=== PATIENT | male | born 1950 | race Caucasian/White ===

== ENCOUNTER 2021-02-16 12:14 | Emergency (ER) | payer OTHER ==
--- NOTE | 2021-02-16 13:23 | RAD REPORT ---
EXAM DESCRIPTION: CT - Head Brain Wo Cont - 02/16/2021 1:11 pm CLINICAL HISTORY: Facial numbness/ CARDOZO'S PALSY COMPARISON: 2016 TECHNIQUE: Computed axial tomography of the head was obtained. IV contrast was not requested. All CT scans are performed using dose optimization technique as appropriate and may include automated exposure control or mA/KV adjustment according to patient size. FINDINGS: An intracranial bleed is not seen . The ventricles are normal in caliber. No extra-axial fluid collection is noted. Mild to moderate low-density areas within periventricular, deep and subcortical white matter likely r epresent ischemic changes secondary to small vessel disease. Fluid within the sinuses/ mastoids is not seen. IMPRESSION: No acute intracranial abnormality is seen. If patient's symptoms persist MRI of the bra in would be recommended.
--- NOTE | 2021-02-16 14:49 | EDPHYS ---
Physician Documentation [facility] Name: Solomon Murdock Age: 70 yrs Sex: Male : 1950 Arrival Date: 02/16/2021 Time: 12:16 Bed 8 Private MD: Yaya Gastelum V ED Physician Dayton Alrfed HPI: 02/16 12:59 This 70 yrs old Male presents to ER via Ambulatory with complaints of S/S of pm1 Possible Stroke. 12:59 The patient's problem is reported as a facial droop, on left. Onset: The pm1 symptoms/episode began/occurred 4 day(s) ago. Duration: The episode is continuous. Context: symptoms became apparent on February 12, 2021. The symptoms are alleviated by nothing. The symptoms are aggravated by nothing. Associated signs and symptoms: Pertinent positives: headache, Pertinent negatives: weakness, speech changes. Severity of symptoms: in the emergency department the symptoms are worse. The patient has not recently seen a physician. left sided tongue numbness onset 4 days ago, difficulty closing left eye, left facial droop. Historical: - Allergies: 12:29 NKA; ph - PMHx: 12:29 COPD; Diabetes - NIDDM; Hypertension; Sleep Apnea; CVA; Asbestosis; ph - Immunization history:: Client reports receiving the 2nd dose of the Covid vaccine. - Social history:: Smoking status: Patient reports the use of cigarette tobacco products, smokes one pack cigarettes per day. ROS: 12:59 Constitutional: Negative for fever, chills, and weight loss. pm1 12:59 ENT: Negative for injury, pain, and discharge, Neck: Negative for injury, pain, and swelling, Cardiovascular: Negative for chest pain, palpitations, and edema, Respiratory: Negative for shortness of breath, cough, wheezing, and pleuritic chest pain, Abdomen/GI: Negative for abdominal pain, nausea, vomiting, diarrhea, and constipation, Back: Negative for injury and pain, MS/Extremity: Negative for injury and deformity, Skin: Negative for injury, rash, and discoloration. 12:59 Eyes: Positive for blurry vision, tearing, of the left eye, Negative for discharge, pain, double vision. 12:59 Neuro: Positive for headache, numbness left side of tongue. 12:59 All other systems are negative. pm1 Exam: 12:59 Constitutional: This is a well developed, well nourished patient who is awake, alert, pm1 and in no acute distress. Head/Face: Normocephalic, atraumatic. 12:59 Eyes: 12:59 ENT: External ear(s): are unremarkable, Ear canal(s): are normal, Mouth: Lips: normal, Oral mucosa: normal, pink and intact, moist. 12:59 Neck: Exam negative for acute changes, ROM/movement: no acute changes. 12:59 Cardiovascular: Rate: normal, Rhythm: regular, Pulses: no pulse deficits are appreciated. 12:59 Respiratory: the patient does not display signs of respiratory distress. 12:59 Neuro: Orientation: is normal, Mentation: is normal, Cerebellar function: no acute changes, Motor: moves all fours, strength is 5/5 in all extremities, Sensation: numbness, that is mild, of the left side of tongue, Gait: is steady, at a normal pace, without difficulty, Facial nerve palsy: Flattening and sparing of left forehead, widening of opening of left eyelid, blinking decreased on left eye, in ability to keep left eye shut, flattening of nasolabial fold, drooping of left corner of mouth with smiling. 13:35 Radiologist reports: No acute findiings pm1 Vital Signs: 12:24 BP 166 / 69; Pulse 68; Resp 18; Temp 97.8; Pulse Ox 99% on R/A; Weight 92.99 kg; Height ph 5 ft. 10 in. (177.80 cm); 14:48 BP 148 / 68; Pulse 66; Resp 15; Pulse Ox 99% on R/A; hb 12:24 Body Mass Index 29.41 (92.99 kg, 177.80 cm) ph MDM: 12:57 Patient medically screened. pm1 14:48 Data reviewed: vital signs. Data interpreted: Pulse oximetry: on room air is 99 %. pm1 Interpretation: normal. Counseling: I had a detailed discussion with the patient and/or guardian regarding: the historical points, exam findings, and any diagnostic results supporting the discharge/admit diagnosis, the need for outpatient follow up, a neurologist, to return to the emergency department if symptoms worsen or persist or if there are any questions or concerns that arise at home. 02/16 12:58 Order name: CT Head Brain wo Cont; Complete Time: 13:35 pm1 Administered Medications: 14:43 Drug: Decadron (dexamethasone) 10 mg Route: IM; Site: right deltoid; hb 15:20 Follow up: Response: No adverse reaction jl7 Disposition: 02/17 07:06 Co-signature as Attending Physician, Dayton Alfred MD I agree with the assessment and kdr plan of care. Disposition Summary: 02/16/21 14:48 Discharge Ordered Location: Home pm1 Problem: new pm1 Symptoms: have improved pm1 Condition: Stable pm1 Diagnosis - Melendez's palsy pm1 Followup: pm1 - With: Emergency Department - When: As needed - Reason: Worsening of condition Followup: pm1 - With: Private Physician - When: 2 - 3 days - Reason: Recheck today's complaints, Continuance of care, Re-evaluation by your physician Discharge Instructions: - Discharge Summary Sheet pm1 - Melendez Palsy, Adult pm1 Forms: - Medication Reconciliation Form pm1 - Thank You Letter pm1 - Antibiotic Education pm1 - Prescription Opioid Use pm1 Prescriptions: - prednisone 10 mg Oral tablet - take 1 tablet by ORAL route as directed for 10 days Take 6 tablets PO daily for pm1 3 days, then take 4 tablets PO daily for 3 days, then 2 tablets PO daily for 2 days, then 1 tablet PO for 2 days; 36 tablet; Refills: 0, Product Selection Permitted Signatures: Dispatcher [employer] Dayton Kendall MD MD [facility] Jenny Candelario RN RN Indra Cotton, EXCELLENCE MANAGER EXCELLENCE MANAGER pm1 Janae Valenzuela RN RN Varsha Navarrete RN jl7
--- NOTE | 2021-02-16 14:49 | ER ---
Nurse's Notes [facility] Name: Solomon Murodck Age: 70 yrs Sex: Male : 1950 Arrival Date: 02/16/2021 Time: 12:16 Bed 8 Private MD: Yaya Gastelum V Diagnosis: Melendez's palsy Presentation: 02/16 12:24 Chief complaint: Patient states: Hx of CVA, reports that "a few days ago" the L side of ph his tongue became numb, then last night he began having blurred vision in the L eye, difficulty closing L eye and L sided facial droop. Also reports headache, denies weakness to extremities, no slurred speech. Coronavirus screen: Client denies travel out of the [place] in the last 14 days. At this time, the client does not indicate any symptoms associated with coronavirus-19. Ebola Screen: No symptoms or risks identified at this time. No acute neurological deficit is noted. Pre-hospital glucose is not applicable to this patient. Initial Sepsis Screen: Does the patient meet any 2 criteria? No. Patient's initial sepsis screen is negative. Does the patient have a suspected source of infection? No. Patient's initial sepsis screen is negative. Risk Assessment: Do you want to hurt yourself or someone else? Patient reports no desire to harm self or others. Onset of symptoms was February 16, 2021. 12:24 Method Of Arrival: Ambulatory 12:24 Acuity: CHARMAINE 3 ph Stroke Activation: Symptom onset > 6 hours Physician: Stroke Attending; Name: ; Notified At: ; Arrived At: Physician: Chief Stroke Resident; Name: ; Notified At: ; Arrived At: Physician: Stroke Resident; Name: ; Notified At: ; Arrived At: Physician: ED Attending; Name: ; Notified At: ; Arrived At: Physician: ED Resident; Name: ; Notified At: ; Arrived At: Historical: - Allergies: 12:29 NKA; ph - PMHx: 12:29 COPD; Diabetes - NIDDM; Hypertension; Sleep Apnea; CVA; Asbestosis; ph - Immunization history:: Client reports receiving the 2nd dose of the Covid vaccine. - Social history:: Smoking status: Patient reports the use of cigarette tobacco products, smokes one pack cigarettes per day. Screenin:37 Abuse screen: Denies threats or abuse. Denies injuries from another. Nutritional hb screening: No deficits noted. Tuberculosis screening: No symptoms or risk factors identified. Fall Risk None identified. Assessment: 12:45 General: Appears in no apparent distress. Behavior is calm, cooperative. Pain: Denies hb pain. Neuro: Level of Consciousness is awake, alert, obeys commands, Oriented to person, place, time, situation, Facial droop on left. Cardiovascular: Patient's skin is warm and dry. Respiratory: Respiratory effort is even, unlabored, Respiratory pattern is regular, symmetrical. GI: No signs and/or symptoms were reported involving the gastrointestinal system. : No signs and/or symptoms were reported regarding the genitourinary system. EENT: No signs and/or symptoms were reported regarding the EENT system. Derm: Skin is pink, warm \\T\\ dry. Musculoskeletal: No signs and/or symptoms reported regarding the musculoskeletal system. 13:37 Reassessment: Patient appears in no apparent distress at this time. Patient and/or hb family updated on plan of care and expected duration. Pain level reassessed. Patient is alert, oriented x 3, equal unlabored respirations, skin warm/dry/pink. 14:48 Reassessment: Patient appears in no apparent distress at this time. Patient and/or hb family updated on plan of care and expected duration. Pain level reassessed. Patient is alert, oriented x 3, equal unlabored respirations, skin warm/dry/pink. Vital Signs: 12:24 BP 166 / 69; Pulse 68; Resp 18; Temp 97.8; Pulse Ox 99% on R/A; Weight 92.99 kg; Height ph 5 ft. 10 in. (177.80 cm); 14:48 BP 148 / 68; Pulse 66; Resp 15; Pulse Ox 99% on R/A; hb 12:24 Body Mass Index 29.41 (92.99 kg, 177.80 cm) ph ED Course: 12:16 Patient arrived in ED. mr 12:17 Yaya Gastelum MD is Private Physician. mr 12:29 Triage completed. ph 12:30 Arm band placed on right wrist. Patient placed in an exam room, on a stretcher. ph 12:31 Varsha Christianson RN is Primary Nurse. jl7 12:36 Indra Reinoso NP is PHCP. pm1 12:36 Dayton Alfred MD is Attending Physician. pm1 13:11 CT Head Brain wo Cont In Process Unspecified. EDMS 13:37 Patient has correct armband on for positive identification. Bed in low position. hb 15:14 No provider procedures requiring assistance completed. Patient did not have IV access jl7 during this emergency room visit. Administered Medications: 14:43 Drug: Decadron (dexamethasone) 10 mg Route: IM; Site: right deltoid; hb 15:20 Follow up: Response: No adverse reaction jl7 Outcome: 14:48 Discharge ordered by . pm1 15:14 Discharged to home ambulatory. jl7 15:14 Condition: stable 15:14 Discharge instructions given to patient, Instructed on discharge instructions, follow up and referral plans. medication usage, Demonstrated understanding of instructions, follow-up care, medications, Prescriptions given X 1. 15:15 Patient left the ED. jl7 Signatures: Dispatcher [employer] EDNY Naomy Cardona Patricia, RN Indra Bazan ph, NP MERCHANDISE MARKER pm1 Janae Valenzuela, SABRINA RN Varsha Christianson RN RN jl7
[2021-02-16] MEDS ORDERED: dexAMETHasone 10 MG/ML VIAL ONE (15:01)
[2021-02-16 15:22] VITALS: TEMP 97.8; O2SAT 99
[2021-02-16 15:23] VITALS: BP 148/68
== END 2021-02-16 15:15 | disposition home or self-care (01) ==
LOC: ER 12:14
DX: G51.0 Bell's palsy (principal); I10 Essential (primary) hypertension; F17.210 Nicotine dependence, cigarettes, uncomplicated; Z86.73 Personal history of transient ischemic attack (TIA), and cerebral infarction without residual deficits
CPT/HCPCS: 70450; J1100; 96372; 99283

== ENCOUNTER 2021-09-19 10:42 | Observation (INO) | payer OTHER ==
--- OUTSIDE RECORDS SUMMARY | 2021-09-19 10:47 | XMS REPORT | Continuity of Care Document ---
:1950 Author Organization [facility] t Address [address] [place] [address] Dr. [address] [place] [address] Care Team Providers Name Role Phone Jesse Jose Primary Care Physician SONNY GREENE Attending Clinician Unavailable Sonny Greene MD Attending Clinician Only, Test Attending Clinician Unavailable Doctor Unassigned, Name Attending Clinician Unavailable Pob, Lab Main Attending Clinician Unavailable SONNY GREENE Admitting Clinician Unavailable Sonny Greene MD Admitting Clinician Payers Payer Name Policy Type Policy Number Effective Date Expiration Date S ource [employer] CHOICE [id number] 2019 00:00:00 Problems This patient has no known problems. Allergies, Adverse Reactions, Alerts Allergy Allergy Status Severity Reaction(s) Onset Inactive Treating Comm ents Source Name Type Date Date Clinician NYLON DRUG Active ITCHING 2020-07 Univers INGREDI 2-14 ity of 00:00: [address] Nylon Propensi Active Itching 2020-07 Univers ty to 2-14 ity of adverse 00:00: [place] reaction [address] [place] [address] s [place] NO KNOWN Drug Active Univers ALLERGIE Class ity of S [facility] Social History Social Habit Start Date Stop Date Quantity Comments Source Exposure to Not sure University of SARS-CoV-2 [facility] (event) [place] Tobacco Comment 2021-07-13 2021-07-13 smoker since 58 Univ ersity of 00:00:00 00:00:00 years [facility] Sex [birth year] Universit y of 00:00:00 00:00:00 [facility] Smoking Status Start Date Stop Date Source Unknown if ever smoked Universit y of [facility] Current every day smoker 2021-07-13 00:00:00 [facility] Medications Ordered Filled Start Stop Current Ordering Indication Dosage Frequency Signature Comments Components Source Medication Medication Date Date Medication? Clinician (SIG) Name Name neomycin-po Yes PRN, Univer s lymyxin-dex 08-12 Starting ity of amethasone 14:20: on [facility] (MAXITROL) 00 08/12/21 at Med ical 3.5 0820, Branch mg/g-10,000 Until unit/g-0.1 Discontinu % ed, ophthalmic Routine, ointment Intra-op gentamicin Yes PRN, Univers injection 08-12 Starting ity of 14:20: on [facility] 00 08/12/21 at [facility] 08, Branch Until Discontinu ed, BABITA, Intra-op DUOVISC Yes PRN, Univers (DUOVISC 08-12 Starting ity of VISCO 14:20: on [facility] ELASTIC) 3 08/12/21 at [facility] ica %-4 %(0.5 0820, Branch mL) 1 % Until (0.55 mL) Discontinu intraocular ed, injection Routine, Intra-op neomycin-po 2021- No PRN, Unive rs lymyxin-dex 08-12 Starting ity of amethasone 14:20: 17:04 on [facility] s (MAXITROL) 00 :20 08/12/21 at Med ical 3.5 0820, Branch mg/g-10,000 Until Naheed unit/g-0.1 08/12/21 at % 1104, ophthalmic Routine, ointment Intra-op gentamicin 2021- No PRN, Univer s injection 08-12 Starting ity o f 14:20: 17:04 on [facility] 00 :20 08/12/21 at Medical 0820, Branch Until Naheed 08/12/21 at 1104, BABITA, Intra-op DUOVISC 2021- No PRN, Univers (DUOVISC 08-12 Starting ity of VISCO 14:20: 17:04 on [facility] ELASTIC) 3 00 :20 08/12/21 at [facility] ical %-4 %(0.5 [facility], Branch mL) 1 % Until Naheed (0.55 mL) 08/12/21 at intraocular 1104, injection Routine, Intra-op NaCl 0.9% 2021-0 Yes PRN, Univers (NS) 08-12 Starting ity of injection 14:19: on Naheed [place] 00 08/12/21 at [place] [address], [place] Until Discontinu ed, Routine, Intra-op dexamethaso 2021-0 Yes PRN, Univer s ne 08-12 Starting ity of (DECADRON 14:19: on Naheed [place] PHOSPHATE) 00 08/12/21 at [facility] ical injection 0819, [place] Until Discontinu ed, Routine, Intra-op ceFAZolin 2021-0 Yes PRN, Univers (ANCEF) 08-12 Starting ity of injection 14:19: on Naheed [place] 00 08/12/21 at [place] [address], [place] Until Discontinu ed, BABITA, Intra-op NaCl 0.9% 2021-0 2021- No PRN, Univers (NS) 08-12 Starting ity of injection 14:19: 17:04 on Naheed [place] 00 :20 08/12/21 at [place] [address], Branch Until Naheed 08/12/21 at 1104, Routine, Intra-op dexamethaso 2021-0 2021- No PRN, Unive rs ne 08-12 Starting ity of (DECADRON 14:19: 17:04 on Naheed [place] PHOSPHATE) 00 :20 08/12/21 at Med ical injection 0819, Branch Until Naheed 08/12/21 at 1104, Routine, Intra-op ceFAZolin 2021-0 2021- No PRN, Univers (ANCEF) 08-12 Starting ity of injection 14:19: 17:04 on Naheed [place] 00 :20 08/12/21 at [place] [address], Branch Until Naheed 08/12/21 at 1104, BABITA, Intra-op EPINEPHrine 2021-0 Yes PRN, Univer s (PF) 08-12 Starting ity of 1:1,000 (1 14:12: on Naheed [place] mg/mL) 00 08/12/21 at [facility] (ADRENALIN 0812, Branch (PF)) Until injection Discontinu ed, Routine, Intra-op balanced Yes PRN, Univers salt soln 08-12 Starting ity of no.2 irrig. 14:12: on [place] (BSS[place] 00 08/12/21 at [facility] ophthalmic 08, [place] solution Until Discontinu ed, Routine, Intra-op EPINEPHrine 2021- No PRN, Unive rs (PF) 08-12 Starting ity of 1:1,000 (1 14:12: 17:04 on [place] mg/mL) 00 :20 08/12/21 at [facility] (ADRENALIN 0812, [place] (PF)) Until Naheed injection 08/12/21 at 1104, Routine, Intra-op balanced 2021- No PRN, Univers salt soln 08-12 Starting ity o f no.2 irrig. 14:12: 17:04 on [place]heed [place] (BSS) 00 :20 08/12/21 at [facility] ophthalmic 08, [place] solution Until Naheed 08/12/21 at 1104, Routine, Intra-op water for Yes PRN, Univers irrigation 08-12 Starting ity o f irrigation 14:10: on Naheed [place] solution 00 08/12/[address] [facility] al 0810, [place] Until Discontinu ed, Routine, Intra-op water for 2021- No PRN, Univers irrigation 08-12 Starting ity of irrigation 14:10: 17:04 on [facility] [place] solution 00 :20 08/12/21 at Medic al 0810, Branch Until Naheed 08/12/21 at 1104, Routine, Intra-op tetracaine Yes PRN, Univers (PONTOCAINE 08-12 Starting ity of ) 0.5 % 14:05: on Naheed [place] ophthalmic 00 08/12/21 at [facility] ical drops 08, [place] Until Discontinu ed, Routine, Intra-op tetracaine 2021- No PRN, Univer s (PONTOCAINE 08-12 Starting ity of ) 0.5 % 14:05: 17:04 on Naheed [place] ophthalmic 00 :20 08/12/21 at [facility] ical drops 0805, Branch Until Naheed 08/12/21 at 1104, Routine, Intra-op eye block Yes PRN, Univers syringe 08-12 Starting ity o f mL 14:04: on Naheed [place] 08/12/21 at [facility] 0804, [facility] 2021- No PRN, Univers syringe 08-12 Starting ity of mL 14:04: 17:04 on [facility] 00 :20 08/12/21 at [facility] 0804, Branch Until Naheed 08/12/21 at 1104, Intra-op cyclopent 2021- No .5mL 0.5 mL, Univ ers 1%-tropic 08-12 Right Eye, ity of 1%-phenyl 12:45: 13:03 ONCE, 1 [place] 2.5%-ketor 00 :00 dose, On Medic al 0.5% [facility] Branch (MYDRIATIC 08/12/21 at #5) 0645, ophthalmic Routine, solution DSU Pre-op syringe 0.5 mL lactated 2021- No 1000mL at 42 Unive rs ringers IV 08-12 mL/hr, ity of infusion 12:45: 12:56 1,000 mL, [place] 1,000 mL 00 :00 IV Medical Infusion, Branch ONCE, 1 dose, On Mon08/12/21 at 0645, Routine, DSU Pre-op cyclopent 2021- No .5mL 0.5 mL, Univ ers 1%-tropic 08-12 Right Eye, ity of 1%-phenyl 12:45: 13:03 ONCE, 1 [place] 2.5%-ketor 00 :00 dose, On Medic al 0.5% [facility] Branch (MYDRIATIC 08/12/21 at #5) 0645, ophthalmic Routine, solution DSU Pre-op syringe 0.5 mL lactated 2021- No 1000mL at 42 Unive rs ringers IV 08-12 mL/hr, ity of infusion 12:45: 12:56 1,000 mL, [place] 1,000 mL 00 :00 IV Medical Infusion, Branch ONCE, 1 dose, On Mon08/12/21 at 0645, Routine, DSU Pre-op metFORMIN 2021-0 Yes 500mg Take 500 Uni vers 500 mg 1-13 mg by ity of tablet 09:04: mouth 2 [place] 20 (two) Medical [facility] daily with meals. metFORMIN 2021-0 Yes 500mg Take 500 Uni vers 500 mg 1-13 mg by ity of tablet 09:04: mouth 2 [place] 20 (two) [facility] times [place] daily with meals. metFORMIN 2021-0 Yes 500mg Take 500 Uni vers 500 mg 1-10 mg by ity of tablet 09:56: mouth 2 [place] 03 (two) [facility] daily with meals. neomycin-po 2020-07 Yes PRN, Univer s lymyxin-dex -16 Starting ity of amethasone 14:12: on [facility] (MAXITROL) 00 07/15/21 Medic al 3.5 at 0812, [place] mg/g-10,000 Until unit/g-0.1 Discontinu % ed, ophthalmic Routine, ointment Intra-op neomycin-po 2020-07- No PRN, Unive rs lymyxin-dex -07-15 Starting ity of amethasone 14:12: 16:52 [facility]51 07/15/21 Medic al 3.5 at 0812, [place] mg/g-10,000 Until Naheed unit/g-0.1 07/15/21 % at 1052, ophthalmic Routine, ointment Intra-op gentamicin 2020-07 Yes PRN, Univers injection -16 Starting ity of 14:11: on [facility] 00 07/15/21 Medical at 0811, Branch Until Discontinu ed, BABITA, Intra-op gentamicin 2020-07- No PRN, Univer s injection -07-15 Starting ity o f 14:11: 16:52 on [facility] 00 :51 07/15/21 Medical at 0811, Branch Until Naheed 07/15/21 at 1052, BABITA, Intra-op dexamethaso 2020-07 Yes PRN, Univer s ne -16 Starting ity of (DECADRON 14:10: on [facility] PHOSPHATE) 00 07/15/21 Medic al injection at 0810, Branch Until Discontinu ed, Routine, Intra-op DUOVISC 2020-07 Yes PRN, Univers (DUOVISC 2-16 Starting ity of VISCO 14:10: on Naheed [place] ELASTIC) 3 00 07/15/21 Medic al %-4 %(0.5 at 0810, Branch mL) 1 % Until (0.55 mL) Discontinu intraocular ed, injection Routine, Intra-op DUOVISC 2020-07- No PRN, Univers (DUOVISC 2-15 07- Starting ity of VISCO 14:10: 16:52 on Naheed [place] ELASTIC) 3 00 :51 07/15/21 Medic al %-4 %(0.5 at 0810, Branch mL) 1 % Until Naheed (0.55 mL) 07/15/21 intraocular at 1052, injection Routine, Intra-op dexamethaso 2020-07- No PRN, Unive rs ne 2-15 07- Starting ity of (DECADRON 14:10: 16:52 on [facility] PHOSPHATE) 00 :51 07/15/21 Medic al injection at 0810, Branch Until Naheed 07/15/21 at 1052, Routine, Intra-op ceFAZolin 2020-07 Yes PRN, Univers (ANCEF) 2- Starting ity of injection 14:09: on Naheed [place] 00 07/15/21 Medical at 0809, Branch Until Discontinu ed, BABITA, Intra-op ceFAZolin 2020-07- No PRN, Univers (ANCEF) 2-07-15 Starting ity of injection 14:09: 16:52 on Naheed [place] 00 :51 07/15/21 Medical at 0809, Branch Until Naheed 07/15/21 at 1052, BABITA, Intra-op water for 2020-07 Yes PRN, Univers irrigation 2-16 Starting ity o f irrigation 14:03: on Naheed [place] solution 00 07/15/21 Medical at 0803, Branch Until Discontinu ed, Routine, Intra-op water for 2020-07- No PRN, Univers irrigation 2-16 -16 Starting ity of irrigation 14:03: 16:52 on [place] solution 00 :51 07/15/21 Medical at 0803, Branch Until Naheed 07/15/21 at 1052, Routine, Intra-op NaCl 0.9% 2020-07 Yes PRN, Univers (NS) 2-16 Starting ity of injection 14:00: on Naheed [place] 00 07/15/21 Medical at 0800, Branch Until Discontinu ed, Routine, Intra-op tetracaine 2020-07 Yes PRN, Univers (PONTOCAINE 2-16 Starting ity of ) 0.5 % 14:00: on Naheed [place] ophthalmic 00 07/15/21 Medic al drops at 0800, Branch Until Discontinu ed, Routine, Intra-op NaCl 0.9% 2020-07- No PRN, Univers (NS) 2-16 - Starting ity of injection 14:00: 16:52 on [facility] 00 :51 07/15/21 Medical at 0800, Branch Until Naheed 07/15/21 at 1052, Routine, Intra-op tetracaine 2020-07- No PRN, Univer s (PONTOCAINE 2-16 -16 Starting ity of ) 0.5 % 14:00: 16:52 on [facility] ophthalmic 00 :51 07/15/21 Medic al drops at 0800, Branch Until Naheed 07/15/21 at 1052, Routine, Intra-op eye block 2020-07 Yes PRN, Univers syringe 11 2-16 Starting ity o f mL 13:59: on Naheed [place] 00 07/15/21 Medical at 0759, Branch Until Discontinu ed, Intra-op eye block 2020-07- No PRN, Univers syringe 11 2-16 -16 Starting ity of mL 13:59: 16:52 on [facility] 00 :51 07/15/21 Medical at 0759, Branch Until Naheed 07/15/21 at 1052, Intra-op EPINEPHrine 2020-07 Yes PRN, Univer s (PF) 2-16 Starting ity of 1:1,000 (1 13:58: on Naheed [place] mg/mL) 00 07/15/21 Medical (ADRENALIN at 0758, Bran h (PF)) Until injection Discontinu ed, Routine, Intra-op balanced 2020-07 Yes PRN, Univers salt soln 2-16 Starting ity of no.2 irrig. 13:58: on [place] (BSS) 00 07/15/21 Medical ophthalmic at 0758, Branc h solution Until Discontinu ed, Routine, Intra-op EPINEPHrine 2020-07- No PRN, Unive rs (PF) 09-15 Starting ity of 1:1,000 (1 13:58: 16:52 on [place] mg/mL) 00 :51 07/15/21 Medical (ADRENALIN at 0758, Branc h (PF)) Until Naheed injection 07/15/21 at 1052, Routine, Intra-op balanced 2020-07- No PRN, Univers salt soln 09-15 Starting ity o f no.2 irrig. 13:58: 16:52 on [place]heed [place] (BSS) 00 :51 07/15/21 Medical ophthalmic at 0758, Branc h solution Until Naheed 07/15/21 at 1052, Routine, Intra-op lactated 2020-07- No 1000mL at 42 Unive rs ringers IV 09-15 12-16 mL/hr, ity of infusion 13:15: 13:06 1,000 mL, [place] 1,000 mL 00 :00 IV Medical Infusion, Branch ONCE, 1 dose, On Naheed 07/15/21 at 0715, Routine, DSU Pre-op lactated 2020-07- No 1000mL at 42 Unive rs ringers IV 09-15 12-16 mL/hr, ity of infusion 13:15: 13:06 1,000 mL, [place] 1,000 mL 00 :00 IV Medical Infusion, Branch ONCE, 1 dose, On Naheed 07/15/21 at 0715, Routine, DSU Pre-op cyclopent 2020-07- No .5mL 0.5 mL, Univ ers 1%-tropic 09-15 Left Eye, ity of 1%-phenyl 13:00: 12:56 ONCE, 1 [place] 2.5%-ketor 00 :00 dose, On Medic al 0.5% Naheed Branch (MYDRIATIC 07/15/21 #5) at 0700, ophthalmic Routine, solution DSU Pre-op syringe 0.5 mL cyclopent 2020-07- No .5mL 0.5 mL, Univ ers 1%-tropic 2-16 12-16 Left Eye, ity of 1%-phenyl 13:00: 12:56 ONCE, 1 [place] 2.5%-ketor 00 :00 dose, On Medic al 0.5% [place] Branch (MYDRIATIC 07/15/21 #5) at 0700, ophthalmic Routine, solution DSU Pre-op syringe 0.5 mL No known 2020-07 No Univers medications 2-14 ity of 11:21: [place] 11 Medical Branch SYMBICORT 2020-07 Yes Univers 160-4.5 2-02 ity of mcg/actuati 00:00: [place] on inhaler 00 Medical Branch SYMBICORT 2020-07 Yes Univers 160-4.5 2-02 ity of mcg/actuati 00:00: [place] on inhaler 00 Medical Branch SYMBICORT 2020-07 Yes Univers 160-4.5 2-02 ity of mcg/actuati 00:00: [place] on inhaler 00 Medical Branch SYMBICORT 2020-07 Yes Univers 160-4.5 2-02 ity of mcg/actuati 00:00: [place] on inhaler 00 Medical Branch SYMBICORT 2020-07 Yes Univers 160-4.5 2-02 ity of mcg/actuati 00:00: [place] on inhaler 00 Medical Branch SYMBICORT 2020-07 Yes Univers 160-4.5 2-02 ity of mcg/actuati 00:00: [place] on inhaler 00 Medical Branch SYMBICORT 2020-07 Yes Univers 160-4.5 2-02 ity of mcg/actuati 00:00: [place] on inhaler 00 Medical Branch glimepiride 2020-07 Yes Univer s 4 mg tablet 0-24 ity of 00:00: [place] 00 Medical Branch losartan-hy 2020-07 Yes Univer s drochloroth 0-24 ity of iazide 00:00: [place] 100-12.5 mg 00 Medical per tablet Branch glimepiride 2020-07 Yes Univer s 4 mg tablet 0-24 ity of 00:00: [place] 00 Medical Branch losartan-hy 2020-07 Yes Univer s drochloroth 0-24 ity of iazide 00:00: [place] 100-12.5 mg 00 Medical per tablet Branch glimepiride 2020-07 Yes Univer s 4 mg tablet 0-24 ity of 00:00: 00 Medical Branch losartan-hy 2020-07 Yes Univer s drochloroth 0-24 ity of iazide 00:00: [place] 100-12.5 mg 00 Medical per tablet Branch glimepiride 2020-07 Yes Univer s 4 mg tablet 0-24 ity of 00:00: 00 Medical Branch losartan-hy 2020-07 Yes Univer s drochloroth 0-24 ity of iazide 00:00: [place] 100-12.5 mg 00 Medical per tablet Branch glimepiride 2020-07 Yes Univer s 4 mg tablet 0-24 ity of 00:00: [place] 00 Medical Branch losartan-hy 2020-07 Yes Univer s drochloroth 0-24 ity of iazide 00:00: [place] 100-12.5 mg 00 Medical per tablet Branch glimepiride 2020-07 Yes Univer s 4 mg tablet 0-24 ity of 00:00: [place] 00 Medical Branch losartan-hy 2020-07 Yes Univer s drochloroth 0-24 ity of iazide 00:00: [place] 100-12.5 mg 00 Medical per tablet Branch glimepiride 2020-07 Yes Univer s 4 mg tablet 0-24 ity of 00:00: [place] 00 Medical Branch losartan-hy 2020-07 Yes Univer s drochloroth 0-24 ity of iazide 00:00: [place] 100-12.5 mg 00 Medical per tablet Branch carvediloL 2020-07 Yes Univers 12.5 mg 0-12 ity of tablet 00:00: Medical Branch carvediloL 2020-07 Yes Univers 12.5 mg 0-12 ity of tablet 00:00: Medical Branch carvediloL 2020-07 Yes Univers 12.5 mg 0-12 ity of tablet 00:00: Medical Branch carvediloL 2020-07 Yes Univers 12.5 mg 0-12 ity of tablet 00:00: Medical Branch carvediloL 2020-07 Yes Univers 12.5 mg 0-12 ity of tablet 00:00: Medical Branch carvediloL 2020-07 Yes Univers 12.5 mg 0-12 ity of tablet 00:00: Medical Branch carvediloL 2020-1 Yes Univers 12.5 mg 0-12 ity of tablet 00:00: [place] [facility] Branch Immunizations Ordered Filled Immunization Date Status Comments [facility] e Immunization Name Name SARS-COV-2 COVID-19 2021-05-25 Completed Unive rsity of MODERNA VACCINE 00:00:00 [facility] ical Branch SARS-COV-2 COVID-19 2021-05-25 Completed Unive rsity of MODERNA VACCINE 00:00:00 [facility] ical Branch SARS-COV-2 COVID-19 2021-05-25 Completed Unive rsity of MODERNA VACCINE 00:00:00 [facility] SARS-COV-2 COVID-19 2021-05-25 Completed Unive rsity of MODERNA VACCINE 00:00:00 [facility] Branch SARS-COV-2 COVID-19 2021-05-25 Completed Unive rsity of MODERNA VACCINE 00:00:00 [facility] Branch SARS-COV-2 COVID-19 2021-05-25 Completed Unive rsity of MODERNA VACCINE 00:00:00 [facility] Branch SARS-COV-2 COVID-19 2021-05-25 Completed Unive rsity of MODERNA VACCINE 00:00:00 [facility] Branch SARS-COV-2 COVID-19 2020-11-26 Completed Unive rsity of MODERNA VACCINE 00:00:00 [facility] Branch SARS-COV-2 COVID-19 2020-11-26 Completed Unive rsity of MODERNA VACCINE 00:00:00 [facility] ical Branch SARS-COV-2 COVID-19 2020-11-26 Completed Unive rsity of MODERNA VACCINE 00:00:00 [facility] ical Branch SARS-COV-2 COVID-19 2020-11-26 Completed Unive rsity of MODERNA VACCINE 00:00:00 [facility] Branch SARS-COV-2 COVID-19 2020-11-26 Completed Unive rsity of MODERNA VACCINE 00:00:00 [facility] Branch SARS-COV-2 COVID-19 2020-11-26 Completed Unive rsity of MODERNA VACCINE 00:00:00 [facility] Branch SARS-COV-2 COVID-19 2020-11-26 Completed Unive rsity of MODERNA VACCINE 00:00:00 [facility] Branch SARS-COV-2 COVID-19 2020-11-26 Completed Unive rsity of MODERNA VACCINE 00:00:00 [facility] Branch SARS-COV-2 COVID-19 2020-10-22 Completed Unive rsity of MODERNA VACCINE 00:00:00 [facility] Branch SARS-COV-2 COVID-19 2020-10-22 Completed Unive rsity of MODERNA VACCINE 00:00:00 [facility] Branch SARS-COV-2 COVID-19 2020-10-22 Completed Unive rsity of MODERNA VACCINE 00:00:00 [facility] Branch SARS-COV-2 COVID-19 2020-10-22 Completed Unive rsity of MODERNA VACCINE 00:00:00 [facility] Branch SARS-COV-2 COVID-19 2020-10-22 Completed Unive rsity of MODERNA VACCINE 00:00:00 [facility] Branch SARS-COV-2 COVID-19 2020-10-22 Completed Unive rsity of MODERNA VACCINE 00:00:00 [facility] Branch SARS-COV-2 COVID-19 2020-10-22 Completed Unive rsity of MODERNA VACCINE 00:00:00 [facility] Branch SARS-COV-2 COVID-19 2020-10-22 Completed Unive rsity of MODERNA VACCINE 00:00:00 [facility] Vital Signs Vital Name Observation Time Observation Value Comments Source Systolic blood 2021-08-12 14:47:00 149 mm[Hg] Univer sity of pressure [facility] Diastolic blood 2021-08-12 14:47:00 69 mm[Hg] Unive rsity of pressure [facility] Heart rate 2021-08-12 14:47:00 55 /min Universi ty [facility] Respiratory rate 2021-08-12 14:47:00 11 /min [facility] ersity [facility] Oxygen saturation in 2021-08-12 14:47:00 100 /min [facility] Arterial blood by [facility] Pulse oximetry Branch Body temperature 2021-08-12 14:29:00 36.44 Meli [facility] ersity of [place] [facility] Body height 2021-08-03 19:32:00 177.8 cm Universi ty of [place] [facility] Body weight 2021-08-03 19:32:00 90.7 kg Universi ty of [place] [facility] BMI 2021-08-03 19:32:00 28.69 kg/m2 Universi ty of [place] [facility] Systolic blood 2021-08-12 12:41:00 151 mm[Hg] Univer sity of pressure [place] [facility] Diastolic blood 2021-08-12 12:41:00 62 mm[Hg] Unive rsity of pressure [place] [facility] Heart rate 2021-08-12 12:41:00 65 /min Universi ty of [place] [facility] Respiratory rate 2021-08-12 12:41:00 18 /min Univ ersity of [place] [facility] Oxygen saturation in 2021-08-12 12:41:00 99 /min University of Arterial blood by [place] [employer] [facility] Pulse oximetry Branch Body height 2021-08-03 19:32:00 177.8 cm Universi ty of [place] [facility] Body weight 2021-08-03 19:32:00 90.7 kg Universi ty [facility] [place] [facility] BMI 2021-08-03 19:32:00 28.69 kg/m2 Universi ty [facility] [place] [facility] Systolic blood 2021-07-15 14:41:00 144 mm[Hg] Univer sity of pressure [place] [facility] Diastolic blood 2021-07-15 14:41:00 71 mm[Hg] Unive rsity of pressure [place] [facility] Heart rate 2021-07-15 14:41:00 55 /min [facility]i ty [facility] [place] [facility] Respiratory rate 2021-07-15 14:40:00 19 /min Univ ersity of [place] [facility] Oxygen saturation in 2021-07-15 14:40:00 99 /min University of Arterial blood by [place] [employer] [facility] Pulse oximetry Branch Body temperature 2021-07-15 14:26:00 36.39 Meli Univ ersity of [place] [facility] Body height 2021-07-13 17:00:00 177.8 cm Universi ty [facility] [place] [facility] Body weight 2021-07-13 17:00:00 90.719 kg Universi ty [facility] [place] [facility] BMI 2021-07-13 17:00:00 28.70 kg/m2 [facility] [place] [facility] Systolic blood 2021-07-15 14:36:00 155 mm[Hg] Univer sity of pressure [facility] Diastolic blood 2021-07-15 14:36:00 77 mm[facility]Hg] [facility] Heart rate 2021-07-15 14:36:00 56 /min [facility] Oxygen saturation in 2021-07-15 14:36:00 98 /min [facility] Arterial blood by [facility] Pulse oximetry [place] Respiratory rate 2021-07-15 14:34:00 43 /min [facility] Body temperature 2021-07-15 14:26:00 36.39 Meli [facility] Body height 2021-07-13 17:00:00 177.8 cm [facility] Body weight 2021-07-13 17:00:00 90.719 kg [facility] BMI 2021-07-13 17:00:00 28.70 kg/m2 [facility] Procedures Procedure Date / Time Performing Source Performed Clinician PHACOEMULSIFICATION OF 2021-08-12 Arcenio [facility] CATARACT WITH INTRAOCULAR 13:54:00 Sonny Rai l Anat LENS IMPLANT POCT GLUCOSE(AGE >30DAYS) 2021-08-12 Omar Gary [facility] 12:55:00 [facility] POCT GLUCOSE(AGE >30DAYS) 2021-08-12 Omar Gary [facility] 12:55:00 [facility] POCT GLUCOSE (AUTOMATED) 2021-08-12 Arcenio [facility] 12:50:00 [facility] POCT GLUCOSE (AUTOMATED) 2021[facility]08[facility]12 [facility] 12:50[facility]00 [facility] ASSIGNMENT OF BENEFITS 2021-08-05 Doctor Unassigned, [facility] 19:15:30 [facility] Branch PHACOEMULSIFICATION OF 2021-07-15 Arcenio [facility] CATARACT WITH INTRAOCULAR 13:48:00 Sonny Medica l Anat LENS IMPLANT POCT GLUCOSE (AUTOMATED) 2021-07-15 Arcen[facility] 13:04:00 [facility] POCT GLUCOSE (AUTOMATED) 2021-07-15 Alycia Greene [facility] 13:04:00 [facility] PATIENT QUESTIONNAIRE 2021-07-15 Doctor Dontrell [facility] 06:01:00 [facility] NO SHOW OR MISSED APPOINTMENT 2021-07-09 Doctor Dontrell [facility] POLICY ACKNOWLEDGEMENT 21:25:51 [facility] mario NO SHOW OR MISSED APPOINTMENT 2021-07-09 Doctor Unakristie [facility] POLICY ACKNOWLEDGEMENT 21:25:51 [facility] aliyahch [facility] PATIENT FINANCIAL POLICY 2021-07-09 Doctor Unakristie [facility] 21:25:18 [facility] PATIENT FINANCIAL POLICY 2021-07-09 Doctor Dontrell [facility] 21:25:18 [facility] NOTICE OF BILLING PRACTICES 2021-07-09 Doctor Yeceniassmaddie [facility] FOR MEDICARE PATIENTS 21:24:55 [facility] NOTICE OF BILLING PRACTICES 2021-07-09 Doctor Dontrell [facility] FOR MEDICARE PATIENTS 21:24:55 [facility] NOTICE OF PRIVACY PRACTICES 2021-07-09 Doctor Unakristie [facility] 21:24:37 [facility] NOTICE OF PRIVACY PRACTICES 2021-07-09 Doctor Dontrell [facility] 21:24:37 [facility] CONSENT/REFUSAL FOR DIAGNOSIS 2021-07-09 Doctor Dontrell [facility] AND TREATMENT 21:24:19 [facility] CONSENT/REFUSAL FOR DIAGNOSIS 2021-07-09 Doctor Dontrell [facility] AND TREATMENT 21:24:19 [facility] ASSIGNMENT OF BENEFITS 2021-07-09 Doctor Dontrell [facility] 21:24:01 [facility] ASSIGNMENT OF BENEFITS 2021-07-09 Doctor Dontrell [facility] 21:24:01 [facility] VACCINATIONS - CONSENTS, 2021-05-23 Doctor Dontrell [facility] ELIGIBILITY, HISTORY 05:01:00 [facility] Encounters Start End Encounter Admission Attending Care Care Encounter Source Date/Time Date/Time Type Type Clinicians Facility Department ID 2021-08-12 2021-08-12 Outpatient Donald GREENE [facility] OPH [id number] [facility] 06:39:00 08:59:00 ALYCIA itmariangel [facility] 2021-08-12 2021-08-12 Hospital [facility] [id number] Univers 06:39:00 08:59:00 Encounter Alycia YEPEZJAQUELIN 350.1.13.10 [place] [id number] [facility] 071 Branch 2021-08-12 2021-08-12 Surgery [facility] [id number] Univers 07:30:00 08:05:00 Alycia ADRIEN 350.1.13.10 [place] [id number] [facility] 020 Branch 2021-08-10 2021-08-10 Laboratory Only, Adc Test [facility] 1.2.840. [id number] Univers 10:30:00 10:45:00 Only Alycia Greene 350.1.1 3.10 [place] [id number] [facility] [address] 2021-08-10 2021-08-10 Outpatient R [facility] [id number] Univers 10:30:00 10:30:00 [id number] ity of [facility] 2021-08-10 2021-08-10 Outpatient R [facility] [id number] Univers 10:30:00 10:30:00 ALYCIA carter [facility] 2021-08-05 2021-08-05 Orders Doctor MANUEL [id number] Univers 00:00:00 00:00:00 Only Unassigned, ORIN 350.1.13.10 [place]y of [place] [facility] 4.2.7.2.686 Paul as [phone] [facility] 009 Branch 2021-07-15 2021-07-15 Outpatient R [facility] OPH [id number] Univers 06:43:00 08:41:00 ALYCIA carter [facility] 2021-07-15 2021-07-15 [facility] [id number] Univers 06:43:00 08:41:00 Encounter Alycia JURADO 350.1.13.10 [place] [id number] [facility] 071 Branch 2021-07-15 2021-07-[address] [facility] [id number] Univers 08:00:00 08:36:00 Alycia JURADO 350.1.13.10 [place] [id number] [facility] 020 Branch 2021-07-15 2021-07-15 Orders Doctor KALEB [id number] Univers 00:00:00 00:00:00 Only Unassigned, ORIN 350.1.13.10 it[facility] of [place] [facility] 4.2.7.2.686 [place] as [id number] [address] 2021-07-09 2021-07-09 Jig Grinder Set Up Operator Marcelle, Adc Lab Main [facility] 1.2.8 40.114 [id number] Univers 15:28:55 15:43:55 Visit ArcenioAlycia [place] JURADO 350.1.1 3.10 [place] PROF[place] [id number] T[place] dical [facility] 2021-07-09 2021-07-09 [facility] [id number] Univers 12:00:00 12:00:00 ALYCIA cartre [facility] 2021-07-08 2021-07-08 [facility] [id number] Univers 15:15:00 15:15:00 ALYCIA carter [facility] 2021-05-23 2021-05-23 Orders Doctor KALEB [id number] Univers 00:00:00 00:00:00 Only Unassigned, ORIN 350.1.13.10 [facility] of [place] [facility] 4.2.7.2.686 [place] as [phone] [address] Results Test Description Test Time Test Comments Results Result Comments Source POCT GLUCOSE (AUTOMATED) 2021-08-12 13:52:57 Test Item Value Reference Range Interpretation Comme nts POCT GLU (test code = 3445405403) 113 mg/dL 70-110 H Lab Interpretation (test code = 71012-0) Abnormal General acute hospital GLUCOSE (AUTOMATED)2021-08-12 13:52:57 Test Item Value Reference Range Interpretation Comments POCT GLU (test code = 4222184496) 113 mg/dL 70-110 H Lab Interpretation (test code = Abnormal 80319-2) General acute hospital [id number] 12:55:00 Test Item Value Reference Range Interpretation Comments POCT Glu (age>30days) (test code = 113 mg/dL 70-110 A 3342) Lab Interpretation (test code = Abnormal 18988-8) General acute hospital [id number] 12:55:00 Test Item Value Reference Range Interpretation Comments POCT Glu (age>30days) (test code = 113 mg/dL 70-110 A 3342) Lab Interpretation (test code = Abnormal 11180-8) General acute hospital GLUCOSE (AUTOMATED)2021-07-15 13:07:57 Test Item Value Reference Range Interpretation Comments POCT GLU (test code = [id number]) 150 mg/dL 70-110 H Lab Interpretation (test code = Abnormal 46874-5) General acute hospital GLUCOSE (AUTOMATED)2021-07-15 13:07:57 Test Item Value Reference Range Interpretation Comments POCT GLU (test code = [id number]) 150 mg/dL 70-110 H Lab Interpretation (test code = Abnormal 32102-4) [facility]
[2021-09-19 11:28] LABS: Absolute Lymphocytes (CBC) 1.3 K/uL (0.7-4.9); Hematocrit 34.2 % (39.6-49.0); Lymphocytes % 16.8 % (15.3-44.8); MPV 8.3 fL (7.6-11.3); RBC Red Blood Cell Count 3.85 M/uL (4.33-5.43)
[2021-09-19 11:32] LABS: Protime INR 0.97
[2021-09-19 11:52] LABS: Potassium 4.5 mmol/L (3.5-5.1); Troponin High Sensitivity 9.9 pg/mL (<58.9)
[2021-09-19] MEDS ORDERED: NA CHLORIDE 0.9% 500 ML ONE (12:08)
--- NOTE | 2021-09-19 12:24 | RAD REPORT ---
EXAM DESCRIPTION: CT - Head Brain Wo Cont - 09/19/2021 12:10 pm CLINICAL HISTORY: Alteration of awareness/confusion/dizziness COMPARISON: 2020 TECHNIQUE: Computed axial tomography of the head was obtained. IV contrast was not requested. All CT scans are performed using dose optimization technique as appropriate and may include automated exposure control or mA/KV adjustment according to patient size. FINDINGS: An intracranial bleed is not seen . The ventricles are normal in caliber. No extra-axial fluid collection is noted. Distal left vertebral artery calcification Mild to moderate low-density areas within periventricular, deep and subcortical white matter likely r epresent ischemic changes secondary to small vessel disease. Fluid within the sinuses/ mastoids is not seen. IMPRESSION: No acute intracranial abnormality is seen. If patient's symptoms persist MRI of the bra in would be recommended.
[2021-09-19 13:05] LABS: SARS-COV-2 RT PCR NEGATIVE (NEGATIVE)
--- NOTE | 2021-09-19 13:10 | RAD REPORT ---
EXAM DESCRIPTION: USCarotid Artery Bilateral09/19/2021 12:53 pm CLINICAL HISTORY: Dizziness/CVA COMPARISON: 2016 FINDINGS: The velocity of the right internal carotid artery equals 149 cm/sec. The right ICA/CCA rat io 1.9 The velocity of the left internal carotid artery equals 91 cm/sec. The left ICA/CCA ratio 1.5 Mild plaque is present within the carotid arteries. The vertebral arteries demonstrate antegrade flow IMPRESSION: Mild plaque within the carotid arteries. Mildly elevated velocity right internal carotid artery probably secondary to being tortuous. NASCET criteria used. Mild 0-49% stenosis Moderate 50-69% stenosis Severe 70-99% stenosis
--- NOTE | 2021-09-19 13:22 | RAD REPORT ---
EXAM DESCRIPTION: Yuri Single View09/19/2021 1:07 pm CLINICAL HISTORY: cough COMPARISON: 2017 FINDINGS: The lungs appear clear of acute infiltrate. The heart is normal size IMPRESSION: No acute abnormalities displayed
[2021-09-19 13:45] LABS: Urine Blood Trace-intact (Negative); Urine Glucose Negative (Negative); Urine Protein 1+ (Negative); Urine pH 5.5 (5.0-7.0)
[2021-09-19 13:57] LABS: Urine Bacteria <20 /HPF (NONE SEEN); Urine RBC <5 /HPF (NONE SEEN)
--- NOTE | 2021-09-19 14:45 | ER ---
Nurse's Notes [facility] Name: Solomon Murdock Age: 70 yrs Sex: Male : 1950 Arrival Date: 09/19/2021 Time: 10:44 Bed 8 Private MD: Sharyn Molina C Diagnosis: Tremor, unspecified;Dehydration Presentation: 09/19 10:53 Chief complaint: Patient states: "I feel like my brain is in a fog. I have pain in my ab2 head and down both sides of my neck, worse on the right side. My hands and arms will shake and I have no control over that." Pt states this began 3 days ago. Chief complaint:. Coronavirus screen: Vaccine status: Patient reports receiving the 2nd dose of the covid vaccine. Client denies travel out of the [place] in the last 14 days. At this time, the client does not indicate any symptoms associated with coronavirus-19. Ebola Screen: Patient negative for fever greater than or equal to 101.5 degrees Fahrenheit, and additional compatible Ebola Virus Disease symptoms Patient denies exposure to infectious person. Patient denies travel to an Ebola-affected area in the 21 days before illness onset. No symptoms or risks identified at this time. Initial Sepsis Screen: Does the patient meet any 2 criteria? No. Patient's initial sepsis screen is negative. Does the patient have a suspected source of infection? No. Patient's initial sepsis screen is negative. Risk Assessment: Do you want to hurt yourself or someone else? Patient reports no desire to harm self or others. Onset of symptoms is unknown. 10:53 Method Of Arrival: Ambulatory ab2 10:53 Acuity: CHARMAINE 3 ab2 Triage Assessment: 10:57 General: Appears in no apparent distress. comfortable, Behavior is calm, cooperative, ab2 appropriate for age. Pain: Complains of pain in head Pain currently is 2 out of 10 on a pain scale. Historical: - Allergies: 10:56 NKA; ab2 - PMHx: 10:56 CVA; COPD; Diabetes - NIDDM; Hypertension; Sleep Apnea; asbestosis; ab2 - PSHx: 10:56 Back surgery; Appendectomy; ab2 - Immunization history:: Adult Immunizations up to date, Client reports receiving the 2nd dose of the Covid vaccine, Pneumococcal vaccine is up to date, Flu vaccine is up to date. - Social history:: Smoking status: Patient reports the use of cigarette tobacco products, smokes one-half pack cigarettes per day. - Family history:: not pertinent. - Hospitalizations: : No recent hospitalization is reported. Screenin:58 Abuse screen: Denies threats or abuse. Denies injuries from another. Nutritional ab2 screening: No deficits noted. Tuberculosis screening: No symptoms or risk factors identified. Fall Risk None identified. Assessment: 11:10 General: Appears in no apparent distress. uncomfortable, Behavior is calm, cooperative. vg1 Pain: Complains of pain in head and lower back Pain currently is 1 out of 10 on a pain scale. Neuro: Level of Consciousness is awake, alert, obeys commands, Oriented to person, place, time, situation. Cardiovascular: Patient's skin is warm and dry. Respiratory: Reports cough that is productive, Airway is patent Respiratory effort is even, unlabored. GI: Patient currently denies diarrhea, nausea, vomiting. : Denies burning with urination, urinary frequency. EENT: No signs and/or symptoms were reported regarding the EENT system. Derm: Skin is intact, Skin is pink, warm \\T\\ dry. Musculoskeletal: Circulation, motion, and sensation intact. 12:55 Reassessment: Patient appears in no apparent distress at this time. No changes from vg1 previously documented assessment. Patient and/or family updated on plan of care and expected duration. Pain level reassessed. Patient is alert, oriented x 3, equal unlabored respirations, skin warm/dry/pink. 14:00 Reassessment: Patient appears in no apparent distress at this time. No changes from jl7 previously documented assessment. Patient and/or family updated on plan of care and expected duration. Pain level reassessed. Patient is alert, oriented x 3, equal unlabored respirations, skin warm/dry/pink. 15:00 Reassessment: Patient appears in no apparent distress at this time. No changes from jl7 previously documented assessment. Patient and/or family updated on plan of care and expected duration. Pain level reassessed. Patient is alert, oriented x 3, equal unlabored respirations, skin warm/dry/pink. 16:00 Reassessment: Patient appears in no apparent distress at this time. No changes from jl7 previously documented assessment. Patient and/or family updated on plan of care and expected duration. Pain level reassessed. Patient is alert, oriented x 3, equal unlabored respirations, skin warm/dry/pink. 17:00 Reassessment: Patient appears in no apparent distress at this time. No changes from jl7 previously documented assessment. Patient and/or family updated on plan of care and expected duration. Pain level reassessed. Patient is alert, oriented x 3, equal unlabored respirations, skin warm/dry/pink. Vital Signs: 10:53 BP 161 / 72; Pulse 78; Resp 18; Temp 98.2(TE); Pulse Ox 97% on R/A; Weight 90.72 kg; ab2 Height 5 ft. 10 in. (177.80 cm); Pain 2/10; 11:32 BP 149 / 69; Pulse 71; Resp 15; Pulse Ox 97% ; jl7 12:55 BP 153 / 68; Pulse 70; Resp 18; Pulse Ox 97% on R/A; vg1 14:00 BP 127 / 58; Pulse 63; Resp 15; Pulse Ox 96% ; jl7 14:30 BP 159 / 70; Pulse 63; Resp 15; Pulse Ox 98% ; jl7 15:30 BP 170 / 74; Pulse 62; Resp 15; Pulse Ox 98% ; jl7 16:30 BP 163 / 64; Pulse 58; Resp 16; Pulse Ox 98% ; jl7 17:15 BP 157 / 69; Pulse 59; Resp 14; Pulse Ox 98% ; jl7 10:53 Body Mass Index 28.70 (90.72 kg, 177.80 cm) ab2 ED Course: 10:44 Patient arrived in ED. mr 10:44 Sharyn Molina MD is Private Physician. mr 10:56 Triage completed. ab2 10:58 Arm band placed on right wrist. ab2 10:58 Patient has correct armband on for positive identification. Bed in low position. Call ab2 light in reach. Adult w/ patient. 11:00 Anibal Killian MD is Attending Physician. rn 11:10 product safety manager on. Pulse ox on. NIBP on. vg1 11:15 Inserted saline lock: 20 gauge in left forearm, using aseptic technique. Blood vg1 collected. 11:15 Initial lab(s) drawn, by me, sent to lab. First set of blood cultures drawn by me. vg1 11:23 COVID swab sent to lab. Flu and/or RSV swab sent to lab. vg1 11:24 EKG done, by ED staff, reviewed by Anibal Killian MD. 7 11:31 Varsha Christianson, RN is Primary Nurse. jl7 11:32 Second set of blood cultures drawn by ct. vg1 12:09 CT Head Brain wo Cont In Process Unspecified. EDMS 12:[address] moved back from [address]. vg1 12:53 Carotid Artery Bilateral US In Process Unspecified. EDMS 13:07 XRAY Chest (1 view) In Process Unspecified. EDMS 14:44 Sharyn Molina MD is Hospitalizing Provider. rn 17:15 No provider procedures requiring assistance completed. Patient admitted, IV remains in jl7 place. intact, No redness/swelling at site. Administered Medications: 12:54 Drug: NS 0.9% 500 ml Route: IV; Rate: bolus; Site: left forearm; vg1 17:25 Drug: Demerol (meperidine) 12.5 mg Route: IVP; Site: left forearm; 7 Outcome: 14:44 Decision to Hospitalize by Provider. rn 22:13 Admitted to Med/surg accompanied by tech, via wheelchair, room 230, Report called to vc1 receiving nurse 22:13 Condition: good 22:13 Instructed on the need for admit. 22:14 Patient left the ED. 1 Signatures: Dispatcher [employer] ROZ YeaNaomy Roman, MD MD rn Leal, Jahala, RN RN jl7 Viky Hood RN RN [facility] Naomy Lott Carloz Limon Vanessa RN RN vc1 Corrections: (The following items were deleted from the chart) 17:52 15:15 BP 157 / 69; Pulse 59bpm; Resp 14bpm; Pulse Ox 98%; jl7 jl7
--- NOTE | 2021-09-19 14:45 | EDPHYS ---
Physician Documentation [facility] Name: Solomon Murdock Age: 70 yrs Sex: Male : 1950 Arrival Date: 09/19/2021 Time: 10:44 Bed 8 Private MD: Sharyn Molina C ED Physician Anibal Killian HPI: 09/19 14:29 This 70 yrs old Male presents to ER via Ambulatory with complaints of Neck pain,head rn Fuzzy,hands shaking. 14:29 The patient presents with dizziness, generalized weakness, lightheadedness, tremors. rn 14:29 Onset: The symptoms/episode began/occurred 3 day(s) ago. Modifying factors: The rn symptoms are alleviated by nothing, the symptoms are aggravated by nothing. Associated signs and symptoms: Pertinent positives: headache, Pertinent negatives: abdominal pain, agitation, blurred vision, chest pain, head injury, shortness of breath, syncope, tingling, vomiting. Severity of symptoms: At their worst the symptoms were moderate in the emergency department the symptoms are unchanged. The patient has not experienced similar symptoms in the past. The patient has not recently seen a physician. Historical: - Allergies: 10:56 NKA; ab2 - PMHx: 10:56 CVA; COPD; Diabetes - NIDDM; Hypertension; Sleep Apnea; asbestosis; ab2 - PSHx: 10:56 Back surgery; Appendectomy; ab2 - Immunization history:: Adult Immunizations up to date, Client reports receiving the 2nd dose of the Covid vaccine, Pneumococcal vaccine is up to date, Flu vaccine is up to date. - Social history:: Smoking status: Patient reports the use of cigarette tobacco products, smokes one-half pack cigarettes per day. - Family history:: not pertinent. - Hospitalizations: : No recent hospitalization is reported. ROS: 14:29 Constitutional: Negative for fever, chills, and weight loss. rn Exam: 12:56 ECG was reviewed by the Attending Physician. rn 14:41 Constitutional: This is a well developed, well nourished patient who is awake, alert, rn appears anxious and generally weak. Head/Face: Normocephalic, atraumatic. Eyes: Periorbital areas with no swelling, redness, or edema. ENT: Dry MM Cardiovascular: Regular rate and rhythm. No pulse deficits. Respiratory: No increased work of breathing, no retractions or nasal flaring. Abdomen/GI: Soft, non-tender Skin: Warm, dry MS/ Extremity: Pulses equal, no cyanosis. Neuro: Awake and alert, GCS 15, 5/5 strength throughout, sensation grossly intact. Vital Signs: 10:53 BP 161 / 72; Pulse 78; Resp 18; Temp 98.2(TE); Pulse Ox 97% on R/A; Weight 90.72 kg; ab2 Height 5 ft. 10 in. (177.80 cm); Pain 2/10; 11:32 BP 149 / 69; Pulse 71; Resp 15; Pulse Ox 97% ; jl7 12:55 BP 153 / 68; Pulse 70; Resp 18; Pulse Ox 97% on R/A; vg1 14:00 BP 127 / 58; Pulse 63; Resp 15; Pulse Ox 96% ; jl7 14:30 BP 159 / 70; Pulse 63; Resp 15; Pulse Ox 98% ; jl7 15:30 BP 170 / 74; Pulse 62; Resp 15; Pulse Ox 98% ; jl7 16:30 BP 163 / 64; Pulse 58; Resp 16; Pulse Ox 98% ; jl7 17:15 BP 157 / 69; Pulse 59; Resp 14; Pulse Ox 98% ; jl7 10:53 Body Mass Index 28.70 (90.72 kg, 177.80 cm) ab2 MDM: 11:00 Patient medically screened. rn 14:41 Differential diagnosis: cardiac arrhythmia, CVA, generalized weakness, rn hyperventilation, hypovolemia, idiopathic dizziness, near-syncope, TIA, vertigo. Data reviewed: vital signs, nurses notes, lab test result(s), EKG, radiologic studies, CT scan, plain films, and as a result, I will admit patient. Counseling: I had a detailed discussion with the patient and/or guardian regarding: the historical points, exam findings, and any diagnostic results supporting the discharge/admit diagnosis, lab results, radiology results, the need for further work-up and treatment in the hospital. Response to treatment: the patient's symptoms have mildly improved after treatment, and as a result, I will admit patient. Admission orders: after a detailed discussion of the patient's condition and case, the admit orders are written by me. ED course: Pt admitted to Dr. Molina for acute kidney injury, dizziness. Dr. Molina requests neuro consult and IV hydration, will recheck creatinine in AM for possible MRI.. 09/19 11:11 Order name: Basic Metabolic Panel; Complete Time: 11:59 rn 09/19 11:11 Order name: CBC with Diff; Complete Time: : rn 09/19 11:11 Order name: Magnesium; Complete Time: 11:59 rn 09/19 11:11 Order name: NT PRO-BNP; Complete Time: : rn 09/19 11:11 Order name: PT-INR; Complete Time: : rn 09/19 11:11 Order name: Troponin HS; Complete Time: : rn 09/19 11:11 Order name: COVID-19/FLU A+B (Document "Date of Onset" if Symptomatic); Complete Time: rn 13:49 09/19 11:12 Order name: Blood Culture Adult (2) rn 09/19 11:12 Order name: Procalcitonin; Complete Time: 13:49 rn 09/19 11:12 Order name: Urine Culture rn 09/19 11:12 Order name: Urine Microscopic Only; Complete Time: 14:11 rn 09/19 11:12 Order name: Glucose, Ancillary Testing; Complete Time: 11:59 EDHI 09/19 11:12 Order name: Glucose, Ancillary Testing EDHI 09/19 13:44 Order name: Urine Dipstick-Ancillary; Complete Time: 13:49 EDHI 09/19 11:10 Order name: CT Head Brain wo Cont; Complete Time: 13:49 rn 09/19 11:11 Order name: XRAY Chest (1 view); Complete Time: 13:49 rn 09/19 11:11 Order name: EKG; Complete Time: 11:12 rn 09/19 11:11 Order name: Cardiac monitoring; Complete Time: : rn 09/19 11:11 Order name: EKG - Nurse/Tech; Complete Time: : rn 09/19 11:11 Order name: IV Saline Lock; Complete Time: : rn 09/19 11:11 Order name: Labs collected and sent; Complete Time: : rn 09/19 11:11 Order name: O2 Per Protocol; Complete Time: : rn 09/19 11:11 Order name: O2 Sat Monitoring; Complete Time: rn 02/20 11:59 Order name: Carotid Artery Bilateral US; Complete Time: 13:49 rn 09/19 17:25 Order name: Diet Ada 1800 Marino; Complete Time: 17:26 jl7 09/19 18:28 Order name: Glucose, Ancillary Testing EDMS 09/19 11:12 Order name: Urine Dipstick-Ancillary (obtain specimen); Complete Time: 17:49 rn EC:56 Rate is 66 beats/min. Rhythm is regular. QRS [place] is Normal. IA interval is normal. QRS rn interval is normal. QT interval is normal. No Q waves. T waves are Normal. No ST changes noted. Clinical impression: Normal ECG. Interpreted by me. Reviewed by me. Administered Medications: 12:54 Drug: NS 0.9% 500 ml Route: IV; Rate: bolus; Site: left forearm; vg1 17:25 Drug: Demerol (meperidine) 12.5 mg Route: IVP; Site: left forearm; jl7 Disposition Summary: 09/19/21 14:44 Hospitalization Ordered Hospitalization Status: Observation rn Provider: Sharyn Molina rn Condition: Stable rn Problem: new rn Symptoms: have improved rn Bed/Room Type: Standard rn Location: Telemetry/MedSurg (observation)(09/19/21 20:30) cg Room Assignment: 230(09/19/21 22:04) cg Diagnosis - Tremor, unspecified rn - Dehydration rn Forms: - Medication Reconciliation Form rn - SBAR form rn Signatures: Dispatcher [employer] EDMS Anibal Killian MD MD rn Martinez, Eric em1 June Hood, RN RN Varsha Valentine RN RN rom7 Viky Hood RN RN 1 Carloz Barbosa Corrections: (The following items were deleted from the chart) 12:01 11:11 Head Angio+CT.RAD.BRZ ordered. EDMS EDMS 12:01 11:11 Neck Angio+CT.RAD.BRZ ordered. EDHI EDHI 17: 14:44 Telemetry/MedSurg (observation) rn em1 17:31 14:44 rn em1 20:30 17:31 [facility] ER HOLD em1 cg 20:30 17:31 ERHOLD- em1 cg 22:04 20:30 206 [facility]
[2021-09-19] MEDS ORDERED: MEPERIDINE HCL 25 MG/ML SYR ONE (17:24)
[2021-09-19] MEDS: NA CHLORIDE 0.9% 1,000 ML IV SCH (18:02)
[2021-09-19] MEDS ORDERED: ONDANSETRON 4 MG/2 ML VIAL IV PRN (18:02)
[2021-09-19 18:05] VITALS: BMI 28.7
[2021-09-19] MEDS ORDERED: NA CHLORIDE 0.9% 1,000 ML ONE (20:41)
[2021-09-19] MEDS: HYDROCODONE/APAP 5/325 MG TAB PO PRN (22:56)
[2021-09-20 04:50] LABS: Absolute Lymphocytes (CBC) 1.3 K/uL (0.7-4.9); Hematocrit 31.3 % (39.6-49.0); Lymphocytes % 21.5 % (15.3-44.8); MPV 7.7 fL (7.6-11.3)
[2021-09-20] MEDS: NA CHLORIDE 0.9% 1,000 ML IV SCH (04:59)
[2021-09-20] MEDS: HYDROCODONE/APAP 5/325 MG TAB PO PRN ×2 (04:59→12:20)
[2021-09-20 05:02] LABS: Potassium 4.5 mmol/L (3.5-5.1)
[2021-09-20] MEDS ORDERED: carvediloL 12.5 MG TAB PO SCH (06:00)
[2021-09-20] MEDS ORDERED: PANTOPRAZOLE 40MG TABLET PO SCH (06:30)
[2021-09-20] MEDS ORDERED: PNEUMOCOCCAL VACCINE 0.5 ML IMVAC ONE (08:00)
[2021-09-20 08:18] VITALS: O2SAT 96
[2021-09-20] MEDS ORDERED: DULERA 200/5 (MOMETASONE/FORMOTEROL) INHALER IH SCH (09:00)
[2021-09-20] MEDS ORDERED: SITAGLIPTIN PHOS 100 MG TAB PO SCH (09:00)
[2021-09-20] MEDS ORDERED: GABAPENTIN 100 MG CAP PO SCH (09:00)
[2021-09-20] MEDS ORDERED: SERTRALINE HCL 50 MG TAB PO SCH (09:00)
[2021-09-20] MEDS ORDERED: ASPIRIN EC 81 MG TAB PO SCH (09:00)
[2021-09-20] MEDS ORDERED: LOSARTAN/HCTZ 50-12.5 PO SCH (09:00)
[2021-09-20] MEDS ORDERED: AMLODIPINE 10 MG TAB PO SCH (09:00)
--- NOTE | 2021-09-20 09:28 | RAD REPORT ---
EXAM DESCRIPTION: MRI - Brain Wo Cont - 09/20/2021 9:02 am CLINICAL HISTORY: neck pain, dizziness, headache, history TIA COMPARISON: Brain Wo Cont dated 07/11/2017; Head Brain Wo Cont dated 09/19/2021 TECHNIQUE: Sagittal T1-weighted images were obtained along with axial PD, heavily T2-weighted and T2 -FLAIR images. Axial DWI and ADC mapping sequences were also obtained along with coronal heavily T2-w eighted images. FINDINGS: No intracranial hemorrhage, mass or acute infarction. There is no edema or shift of midlin e structures. No extra-axial fluid collections. Vanegas-matter/white matter junction is preserved. Signa l voids are seen as a normal finding in the major intracranial vessels. Mild to moderate for age atrophy pattern is seen in the cerebral hemispheres with minimal cerebellum volume loss. Ventricles are in proportion to the cerebral volume loss. Numerous areas of hyperintense T2/IR signal are scattered in the cerebral white matter. This is typical for chronic ischemic change . Mastoid air cells and paranasal sinuses are clear of acute disease no globe or orbital content acute finding. . IMPRESSION: Negative non-contrast MRI of the Brain for acute intracranial finding. Mild to moderate atrophy with ventricles in proportion. Moderate severity cerebral white matter chronic ischemic change.
--- NOTE | 2021-09-20 09:35 | RAD REPORT ---
EXAM DESCRIPTION: MRI - C Spine Wo Cont - 09/20/2021 9:03 am CLINICAL HISTORY: neck pain COMPARISON: No comparisons TECHNIQUE: Sagittal T1-weighted, T2-weighted and T2-STIR sequences were obtained as well as T2 medic sequence. FINDINGS: Cervical vertebral bodies are normal in height. There is straightening of the usual cervic al lordosis with subtle convex curvature at the C3-4 level. There is slight anterior subluxation of C 2 on C3. No suspicious marrow edema or marrow replacing process. No paraspinal mass. Cerebellar tonsils and mid-line skull base show no suspicious finding. No significant finding at the C1 and C2 levels. C2-3 level: Broad-based disc bulge across the central canal partially attenuates the anterior subarac hnoid space. Midline canal diameter is stenotic to 9 mm. Uncovertebral joint hypertrophy and facet hy pertrophy cause a mild right foraminal stenosis. C3-4 level: Disc is thinned and desiccated. Disc bulge and endplate spurring changes fully attenuate the anterior subarachnoid space with contact and slight flattening of the cord. Midline canal diamete r is 8 mm. Significant bilateral bony foraminal encroachment is present from uncovertebral joint hype rtrophy. C4-5 level: Disc is desiccated with slight loss in disc height. Broad-based disc bulge and endplate s purring in the central canal attenuate the anterior subarachnoid space. Canal is 10 mm in the midline . Uncovertebral joint bilateral hypertrophic change and right facet hypertrophy changes cause bilater al moderate severity foraminal stenosis. C5-6 level: Disc is thinned and desiccated. Disc bulge and endplate spurring changes are present. Inf eriorly directed subligamentous disc herniation is suspected. There is full attenuation of the anteri or subarachnoid space at the disc level and along the posterior wall of C6. Posterior ligamentous thi ckening present. Central canal is reduced to 7-8 mm. Facet hypertrophy and uncovertebral joint hypert rophy cause moderate severity bilateral foraminal stenosis. C6-7 level: Disc is thinned and desiccated. Disc bulge and endplate spurring changes attenuate the an terior subarachnoid space. There is cord flattening at this level as well. Canal is 8 mm. C7-T1 level: Disc bulge and endplate spurring changes partially attenuate the anterior subarachnoid s pace. Canal is 11-12 mm in the midline. Multilevel cord flattening seen at C3-4, C5-6 and C6-7. No cord signal abnormality seen. IMPRESSION: Advanced cervical spondylosis changes as detailed. Central spinal stenosis is present at all levels from C3-4 through C6-7. Multilevel moderate severity foraminal stenosis from facet hypertrophy and uncovertebral joint hypert rophy. Cervical spinal cord is flattened at multiple levels as detailed in the body report. There is no cord signal abnormality.
[2021-09-20 12:45] VITALS: BP 170/80; TEMP 98.4
[2021-09-20] MEDS ORDERED: ATORVASTATIN 10 MG TAB PO SCH (21:00)
--- NOTE | 2021-09-21 05:47 | HP ---
Date of Admission: 09/19/2021 A short-stay summary. Chief Complaint: Headache. History Of Present Illness: This is a 70-year-old very pleasant male patient who has had neck proble m for fairly long time and in the past he had seen a neurosurgeon in [place] and he was told that no need for surgical intervention unless it absolutely has to be done and this was long time ago in the past. The patient says that lately he has been having pain in the back of the right posterior neck r egion and some headache on the right occipital region, and he came into emergency room yesterday with these 2 complaints as he was concerned about stroke because of the headache problem. He had CAT sca n of the head done in the emergency room yesterday, which was negative for any acute stroke and he wa s admitted to the hospital. This morning when I saw him, he denied any other new complaints. While he was in the emergency room, he had some tremors of both hands, which resolved. The patient says th at his neck pain gets worse when he moves his head and neck from [id number] or sleeps in the left l ateral position, then the neck pain gets worse. No recent fall or injury. Allergies: NO KNOWN ALLERGIES. Medications: List reviewed. Review of Systems: Musculoskeletal: As mentioned above. 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 All other systems reviewed and negative. 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 Past Surgical History: Biopsy of thyroid nodule which was negative, appendectomy, and back surgery. Family History: Father had valvular heart disease. Mother had colon cancer and diabetes. Social History: Prior history of smoking not at present time. Use of alcohol negative. Physical Examination: Vital Signs: Temperature 98, pulse 63, respiratory rate 12, blood pressure 177/74, oxygen saturation 98%. Height 5 feet 10 inches, weight 200 pounds. General: Awake, alert, oriented, not in distress. HEENT: Head atraumatic, normocephalic. Conjunctivae nonerythematous. Sclerae white. Mouth, no thr ush or edema noted. Ears/Nose, no mass, lesion, discharge noted. Neck: Supple. No JVD, lymph nodes, bruit, thyromegaly noted. Lungs: Bilateral good equal air entry. Clear to auscultation. No rhonchi. No rales. Heart: Normal heart sounds, no murmur or gallop. Abdomen: Soft, bowel sounds normal. No guarding, rigidity, tenderness, mass, hepatosplenomegaly, dis tention, or bruit noted. Extremities: No leg edema. No calf tenderness. Skin: No rash, ulcer, cellulitis. Lymphatics: No lymph node enlargement in neck, supraclavicular, infraclavicular region. Neuro: No focal neurological deficit. Chest: Unremarkable. External Genitalia: Deferred. Rectal: Deferred. Laboratory Data: Yesterday, white count 7.5, hemoglobin 11.5, platelets 242. Today, white count 6.2 , hemoglobin 10.4, platelets 212. Yesterday, sodium 136, potassium 4.5, chloride 108, bicarb 22, BUN 43, creatinine 1.83, glucose 165. Today, sodium 137, potassium 4.5, chloride 108, bicarb 25, BUN 35 , creatinine 1.47, glucose 214. Procalcitonin less than 0.05. Urinalysis: Trace blood, otherwise n egative. Influenza A and B and COVID-19 test negative. Chest x-ray, no acute cardiopulmonary change s. CAT scan of the brain done in the emergency room yesterday, no acute intracranial changes. Carot id Doppler shows mild plaquing within carotid arteries. MRI of the brain done today was negative for any acute stroke and MRI of cervical spine shows advanced degenerative changes, foraminal stenosis, and spinal stenosis with multiple levels of cervical spinal cord flattening without any acute changes of the spinal cord. Hospital Course: After patient was evaluated this morning, MRI of the brain and cervical spine was d one and I will follow up with the patient regarding results on an outpatient basis. I have advised h im to come see me this week on at office at 9 a.m. and I have also instructed him to continu e all his previous home medications. We will start him on gabapentin 100 mg 3 times a day and prescr iption was sent to his pharmacy from my office. Depending on his pain control, we will decide if we can go up on the dose within a week or so. The patient will need neurosurgical evaluation on an elec tive outpatient basis and will make appropriate arrangements for the referral. Details and plan of t reatment discussed with the patient. Final Diagnoses: 1.Cervical spinal stenosis. 2.Chronic kidney disease, stage IIIB. 3.Hypertension. 4.Type 2 diabetes mellitus with chronic kidney disease. 5.Mixed hyperlipidemia. 6.Chronic obstructive pulmonary disease. 7.Gastroesophageal reflux disease. 8.Diverticulosis. 9.Benign prostatic hypertrophy. 10.Osteoarthritis, multiple sites. 11.Anxiety. 12.Depression. JT/MODL Voice ID: [id number]
== END 2021-09-20 12:54 | disposition home or self-care (01) ==
LOC: ER 10:42 → ERHOLD 17:21 → 2ND 20:57 → ERHOLD 21:10 → 2ND 21:11
PROVIDERS: ADMIT Internal Medicine; ATTEND Internal Medicine
DX: M48.02 Spinal stenosis, cervical region (principal); I12.9 Hypertensive chronic kidney disease with stage 1 through stage 4 chronic kidney disease, or unspecified chronic kidney disease; E11.22 Type 2 diabetes mellitus with diabetic chronic kidney disease; N18.32 Chronic kidney disease, stage 3b; E78.2 Mixed hyperlipidemia; J44.9 Chronic obstructive pulmonary disease, unspecified; K21.9 Gastro-esophageal reflux disease without esophagitis; K57.90 Diverticulosis of intestine, part unspecified, without perforation or abscess without bleeding; N40.0 Benign prostatic hyperplasia without lower urinary tract symptoms; M19.90 Unspecified osteoarthritis, unspecified site; F41.9 Anxiety disorder, unspecified; F32.A Depression, unspecified; Z20.822 Contact with and (suspected) exposure to COVID-19
CPT/HCPCS: 93005; 95819; 87040 ×2; 87088; 85025 ×2; 87086; 80048 ×2; 36415; 83735; 85610; 82947 ×5; 84484; 84145; 83880; 0240U; 70450; 71045; 93880; 70551; 72141; 96374; 99285; J2175; J7040; J7030 ×2; G0378 ×3; 81003; 81015; 90732; J7606

== ENCOUNTER 2021-10-14 12:49 | Day surgery (SDC) | payer OTHER ==
[2021-10-13 11:58] LABS: Absolute Lymphocytes (CBC) 1.2 K/uL (0.7-4.9); Hematocrit 33.6 % (39.6-49.0); Lymphocytes % 14.7 % (15.3-44.8); RBC Red Blood Cell Count 3.73 M/uL (4.33-5.43)
--- NOTE | 2021-10-13 11:58 | RAD REPORT ---
EXAM DESCRIPTION: RAD - Chest Pa And Lat (2 Views) - 10/13/2021 11:33 am CLINICAL HISTORY: pre op for surgery Chest pain. COMPARISON: Chest Single View dated 09/19/2021; Chest Pa And Lat (2 Views) dated 06/28/2018; Chest Si ngle View dated 10/15/2016; Chest Pa And Lat (2 Views) dated 11/17/2015 FINDINGS: Mild COPD is present. The heart is upper limit of normal in size. No displaced fractures. IMPRESSION: Mild COPD.
[2021-10-13 12:17] LABS: Protime INR 0.98
[~2021-10-14 12:49] MED LIST: HEPA 1000U/500MLS 2,000 UNIT/1,000 ML BAG IV ONE
[2021-10-14] MEDS ORDERED: NA CHLORIDE 0.9% 500 ML ONE (13:02)
[2021-10-14 13:39] VITALS: TEMP 97.5; O2SAT 97
[2021-10-14] MEDS ORDERED: ATROPINE SULF 1 MG/10 ML SYR IV ONE (14:29)
[2021-10-14] MEDS ORDERED: VERAPAMIL HCL 10 MG/4 ML VIAL IV ONE (14:29)
[2021-10-14] MEDS ORDERED: HEPARIN 5000 UNIT/ML 1 ML VIAL ONE (14:30)
[2021-10-14] MEDS ORDERED: FENTANYL CITR 100 MCG/2 ML ONE (14:50)
[2021-10-14] MEDS ORDERED: MIDAZOLAM HCL 2 MG/2 ML INJ ONE (14:51)
[2021-10-14 17:38] VITALS: BP 148/63
--- NOTE | 2021-10-15 03:04 | OP ---
Date of Procedure: 10/14/2021 Surgeon: GERARDO ALBERTO Procedure Performed: Selective periphery angiogram. Indication: PAD with claudication. Access: Radial artery 6-Canadian closed with TR band. Complications: None. Anesthesia: Total sedation time was 20 minutes. Description Of Procedure: After risks, benefits, alternatives were explained, the patient agreed to proceed and signed informed consent. The patient was brought to the cardiac catheterization laborato , prepped and draped in usual sterile fashion. Then, we accessed right radial artery using pediatr ic micropuncture kit and placed a 6-Canadian slender sheath and then took a longer multipurpose cathete r into the abdominal aorta and selectively engaged the right common iliac and did the right periphera l angiogram selectively first and then the left angiogram selectively as well and then removed the ca theter and sheath, placed TR band with good hemostasis. Findings: 1.Distal aorta is patent. 2.Bilateral common iliac and common femorals are patent with minimal disease. 3.Bilateral profunda are normal. 4.Right SFA is with diffuse 20% to 30% stenosis and good three-vessel run below the knee. 5.Left SFA has a [id number] 95% stenosis and slow flow below the knee. Conclusion: Severe left superficial femoral artery stenosis. Plan: Staged intervention with balloon angioplasty and possible stenting in about 4 weeks. The nataliia ent has chronic kidney disease with creatinine of 1.8. I used only 30 cc of contrast today. We will allow for 3-4 weeks and then plan for the intervention using right femoral artery access with minima l amount of contrast. SR/MODL Voice ID: [id number] Report ID: [id number]
== END 2021-10-14 17:56 | disposition home or self-care (01) ==
LOC: CCL 12:49
PROVIDERS: ATTEND Internal Medicine
DX: I70.213 Atherosclerosis of native arteries of extremities with intermittent claudication, bilateral legs (principal); I35.2 Nonrheumatic aortic (valve) stenosis with insufficiency; E10.9 Type 1 diabetes mellitus without complications; I10 Essential (primary) hypertension; E78.5 Hyperlipidemia, unspecified; F17.210 Nicotine dependence, cigarettes, uncomplicated; Z20.822 Contact with and (suspected) exposure to COVID-19
CPT/HCPCS: 85025; 80048; 36415; 85610; 82947; 85730; 71046; 36200; 75630; 76937; U0003; C1893; J1644 ×2; J2250; J3010; J7040

== ENCOUNTER 2021-11-17 18:10 | Emergency (ER) | payer OTHER ==
--- OUTSIDE RECORDS SUMMARY | 2021-11-17 18:14 | XMS REPORT | Continuity of Care Document ---
:1950 Author Organization [facility] t Address [address] [place] [address] Care Team Providers Name Role Phone Jose Molina Primary Care Physician Raslan Attending Clinician Unavailable SONNY GREENE Attending Clinician Unavailable Sonny Greene MD Attending Clinician Only, Test Attending Clinician Unavailable Doctor Unassigned, Name Attending Clinician Unavailable Pob, Lab Main Attending Clinician Unavailable Jose Molina Admitting Clinician Unavailable SONNY GREENE Admitting Clinician Unavailable Sonny Greene MD Admitting Clinician Payers Payer Name Policy Type Policy Number Effective Date Expiration Date S ource [employer] CHOICE [id number] 2019 00:00:00 Problems This patient has no known problems. Allergies, Adverse Reactions, Alerts Allergy Allergy Status Severity Reaction(s) Onset Inactive Treating Comm ents Source Name Type Date Date Clinician No Known DA Active U [facility] Allergie 3-28 Clear s 00:00: [address] NYLON DRUG Active ITCHING 2020-07 Univers INGREDI 2-14 ity of 00:00: [address] Nylon Propensi Active Itching 2020-07 Univers ty to 2-14 ity of adverse 00:00: [address] NO KNOWN Drug Active Univers ALLERGIE Class ity of S [facility] Social History Social Habit Start Date Stop Date Quantity Comments Source Exposure to Not sure University SARS-CoV-2 [facility] (event) Branch Tobacco Comment 2021-07-13 2021-07-13 smoker since 58 Univ ersity of 00:00:00 00:00:00 years [facility] Sex Assigned At [birth year] Universit y of 00:00:00 00:00:00 [facility] Smoking Status Start Date Stop Date Source Unknown if ever smoked [facility] Current every day smoker 2021-07-13 00:00:00 Uni versity [facility] Medications Ordered Filled Start Stop Current Ordering Indication Dosage Frequency Signature Comments Components Source Medication Medication Date Date Medication? Clinician (SIG) Name Name neomycin-po Yes PRN, Univer s lymyxin-dex 08-12 Starting ity of amethasone 14:20: on [facility] (MAXITROL) 00 08/12/21 at Med ical 3.5 0820, Branch mg/g-10,000 Until unit/g-0.1 Discontinu % ed, ophthalmic Routine, ointment Intra-op gentamicin Yes PRN, Univers injection 08-12 Starting ity of 14:20: on [facility] [place] 00 08/12/21 at Medical 0820, Branch Until Discontinu ed, BABITA, Intra-op DUOVISC Yes PRN, Univers (DUOVISC 08-12 Starting ity of VISCO 14:20: on [facility] [place] ELASTIC) 3 00 08/12/21 at Med ical %-4 %(0.5 0820, Branch mL) 1 % Until (0.55 mL) Discontinu intraocular ed, injection Routine, Intra-op neomycin-po 2021- No PRN, Unive rs lymyxin-dex 08-12 Starting ity of amethasone 14:20: 17:04 [facility] :20 08/12/21 at Med ical 3.5 0820, Branch mg/g-10,000 Until Naheed unit/g-0.1 08/12/21 at % 1104, ophthalmic Routine, ointment Intra-op gentamicin 2021- No PRN, Univer s injection 08-12 Starting ity o f 14:20: 17:04 on Naheed [place] 00 :20 08/12/21 at [facility] 08, [place] Until Naheed 08/12/21 at 1104, BABITA, Intra-op DUOVISC 2021-0 2021- No PRN, Univers (DUOVISC 08-12 Starting ity of VISCO 14:20: 17:04 on Naheed [place] ELASTIC) 3 00 :20 08/12/21 at [facility] ica %-4 %(0.5 [facility], [place] mL) 1 % Until Naheed (0.55 mL) 08/12/21 at intraocular 1104, injection Routine, Intra-op NaCl 0.9% 2021-0 Yes PRN, Univers (NS) 08-12 Starting ity of injection 14:19: on Naheed [place] 00 08/12/[address] Until Discontinu ed, Routine, Intra-op dexamethaso 0 Yes PRN, Deng avila 08-12 Starting ity of (DECADRON 14:19: on [facility] PHOSPHATE) 00 08/12/21 at [facility] ical injection [address] [place] [address] Until Discontinu ed, Routine, Intra-op ceFAZolin Yes PRN, Univers (ANCEF) 08-12 Starting ity of injection 14:19: on Naheed [place] 00 08/12/[address] Until Discontinu ed, BABITA, Intra-op NaCl 0.9% 2021-0 2021- No PRN, Univers (NS) 08-12 Starting ity of injection 14:19: 17:04 on [facility] [place] 00 :20 08/12/[address] Until Naheed 08/12/21 at 1104, Routine, Intra-op dexamethaso 2021-0 2021- No PRN, Unive vanda ne 08-12 Starting ity of (DECADRON 14:19: 17:04 on [facility] [place] PHOSPHATE) 00 :20 08/12/21 at Med ical injection 0819, [place] Until Naheed 08/12/21 at 1104, Routine, Intra-op ceFAZolin 2021-0 2021- No PRN, Univers (ANCEF) 08-12 Starting ity of injection 14:19: 17:04 on Naheed [place] 00 :20 08/12/21 at [facility] 0819, Branch Until Naheed 08/12/21 at 1104, BABITA, Intra-op EPINEPHrine Yes PRN, Univer s (PF) 08-12 Starting ity of 1:1,000 (1 14:12: on Naheed [place] mg/mL) 00 08/12/21 at [facility] (ADRENALIN 0812, Branch (PF)) Until injection Discontinu ed, Routine, Intra-op balanced Yes PRN, Univers salt soln 08-12 Starting ity of no.2 irrig. 14:12: [place] (BSS[place] 00 08/12/21 at [facility] ophthalmic [facility], [place] solution Until Discontinu ed, Routine, Intra-op EPINEPHrine 2021- No PRN, Unive rs (PF) 08-12 Starting ity of 1:1,000 (1 14:12: 17:04 on [place] mg/mL) 00 :20 08/12/21 at [facility] (ADRENALIN 0812, Branch (PF)) Until Naheed injection 08/12/21 at 1104, Routine, Intra-op balanced 2021- No PRN, Univers salt soln 08-12 Starting ity o f no.2 irrig. 14:12: 17:04 on [facility]heed [place] (BSS) 00 :20 08/12/21 at [facility] ophthalmic 08, Branch solution Until Naheed 08/12/21 at 1104, Routine, Intra-op water for Yes PRN, Univers irrigation 08-12 Starting ity o f irrigation 14:10: on Naheed [place] solution 00 08/12/21 at [facility] 0810, [place] Until Discontinu ed, Routine, Intra-op water for 2021- No PRN, Univers irrigation 08-12 Starting ity of irrigation 14:10: 17:04 on [place] solution 00 :20 08/12/21 at Medic al 0810, Branch Until Naheed 08/12/21 at 1104, Routine, Intra-op tetracaine Yes PRN, Univers (PONTOCAINE 08-12 Starting ity of ) 0.5 % 14:05: on [facility] ophthalmic 00 08/12/21 at [facility] ical drops 0805, Branch Until Discontinu ed, Routine, Intra-op tetracaine 2021- No PRN, Univer s (PONTOCAINE 08-12 Starting ity of ) 0.5 % 14:05: 17:[address] [facility] ophthalmic 00 :20 08/12/21 at [facility] ical drops 0805, Branch Until Naheed 08/12/21 at 1104, Routine, Intra-op eye block Yes PRN, Univers syringe 08-12 Starting ity o f mL 14:04: on [facility] 00 08/12/21 at [facility] 0804, Branch Until Discontinu ed, Intra-op eye block 2021- No PRN, Univers syringe 08-12 Starting ity of mL 14:04: 17:[address] [facility] 00 :20 08/12/21 at [facility] 0804, Branch Until [facility] 08/12/21 at 1104, Intra-op cyclopent 2021- No .5mL 0.5 mL, Univ ers 1%-tropic 08-12 Right Eye, ity of 1%-phenyl 12:45: 13:03 [place]CE, [place] 2.5%-ketor 00 :00 dose, On Medic al 0.5% [facility] Branch (MYDRIATIC 08/12/21 at #5) 0645, ophthalmic Routine, solution DSU Pre-op syringe 0.5 mL lactated 2021- No 1000mL at 42 Unive rs ringers IV 08-12 mL/hr, ity of infusion 12:45: 12:56 1,000 mL, Paul [place] 1,000 mL 00 :00 IV Medical Infusion, Branch ONCE, 1 dose, On Naheed 08/12/21 at 0645, Routine, DSU Pre-op cyclopent 2021- No .5mL 0.5 mL, Univ ers 1%-tropic 08-12 Right Eye, ity of 1%-phenyl 12:45: 13:03 [place]CE, [place] 2.5%-ketor 00 :00 dose, On Medic al 0.5% [facility] Branch (MYDRIATIC 08/12/21 at #5) 0645, ophthalmic Routine, solution DSU Pre-op syringe 0.5 mL lactated 2021- No 1000mL at 42 [facility] rs ringers IV 1-13 01-13 mL/hr, ity of infusion 12:45: 12:56 1,000 mL, Paul as 1,000 mL 00 :00 IV Medical Infusion, Branch ONCE, 1 dose, On Naheed 08/12/21 at 0645, Routine, DSU Pre-op metFORMIN 2021-0 Yes 500mg Take 500 Uni vers 500 mg 1-13 mg by ity of tablet 09:04: mouth 2 [place] 20 (two) Medical times Branch daily with meals. metFORMIN 2021-0 Yes 500mg Take 500 Uni vers 500 mg 1-13 mg by ity of tablet 09:04: mouth 2 [place] 20 (two) Medical times Branch daily with meals. metFORMIN 2021-0 Yes 500mg Take 500 Uni vers 500 mg 1-10 mg by ity of tablet 09:56: mouth 2 [place] 03 (two) Medical times Branch daily with meals. neomycin-po 2020-07 Yes PRN, Univer s lymyxin-dex 2-16 Starting ity of amethasone 14:12: on [facility] (MAXITROL) 00 07/15/21 Medic al 3.5 at 0812, Branch mg/g-10,000 Until unit/g-0.1 Discontinu % ed, ophthalmic Routine, ointment Intra-op neomycin-po 2020-07- No [facility]16 07-15 Starting ity of amethasone 14:12: 16:52 on [facility] [place] (MAXITROL) 00 :51 07/15/21 Medic al 3.5 at 0812, Branch mg/g-10,000 Until Naheed unit/g-0.1 07/15/21 % at 1052, ophthalmic Routine, ointment Intra-op gentamicin 2020-07 Yes PRN, Univers injection 2-16 Starting ity of 14:11: on [facility] 00 07/15/21 Medical at 0811, Branch Until Discontinu ed, BABITA, Intra-op gentamicin 2020-07- No PRN, Univer s injection 2-16 - Starting ity o f 14:11: 16:52 on Naheed [place] 00 :51 07/15/21 Medical at 0811, Branch Until Naheed 07/15/21 at 1052, BABITA, Intra-op DUOVISC 2020-07 Yes PRN, Univers (DUOVISC 16 Starting ity of VISCO 14:10: on Naheed [place] ELASTIC) 3 00 07/15/21 Medic al %-4 %(0.5 at 0810, Branch mL) 1 % Until (0.55 mL) Discontinu intraocular ed, injection Routine, Intra-op dexamethaso 2020-07 Yes PRN, Univer s ne 09-15 Starting ity of (DECADRON 14:10: on Na[facility] [place] PHOSPHATE) 00 07/15/21 Medic al injection at 0810, Branch Until Discontinu ed, Routine, Intra-op DUOVISC 2020-07- No PRN, Univers (DUOVISC 09-15 Starting ity of VISCO 14:10: 16:52 on [facility] [place] ELASTIC) 3 00 :51 07/15/21 Medic al %-4 %(0.5 at 0810, Branch mL) 1 % Until Naheed (0.55 mL) 07/15/21 intraocular at 1052, injection Routine, Intra-op dexamethaso 2020-07- No PRN, Univmaría elena rs ne 09-15 Starting ity of (DECADRON 14:10: 16:52 on Na[facility] [place] PHOSPHATE) 00 :51 07/15/21 Medic al injection at 0810, Branch Until Naheed 07/15/21 at 1052, Routine, Intra-op ceFAZolin 2020-07 Yes PRN, Univers (ANCEF) 09-15 Starting ity of injection 14:09: on [facility] [place] 00 07/15/21 Medical at 0809, Branch Until Discontinu ed, BABITA, Intra-op ceFAZolin 2020-07- No PRN, Univers (ANCEF) -07-15 Starting ity of injection 14:09: 16:52 on [facility] [place] 00 :51 07/15/21 Medical at 0809, Branch Until Naheed 07/15/21 at 1052, BABITA, Intra-op water for 2020-07 Yes PRN, Univers irrigation 2-16 Starting ity o f irrigation 14:03: on Na[facility] [place] solution 00 07/15/21 Medical at 0803, Branch Until Discontinu ed, Routine, Intra-op water for 2020-07- No PRN, Univers irrigation 2-16 12-16 Starting ity of irrigation 14:03: 16:52 on [place] solution 00 :51 07/15/21 Medical at 0803, Branch Until [facility] 07/15/21 at 1052, Routine, Intra-op NaCl 0.9% 2020-07 Yes PRN, Univers (NS) 2-16 Starting ity of injection 14:00: on Na[facility] [place] 07/15/21 Medical at 0800, Branch Until Discontinu ed, Routine, Intra-op tetracaine 2020-07 Yes PRN, Univers (PONTOCAINE 2-16 Starting ity of ) 0.5 % 14:00: on [facility] ophthalmic 07/15/21 Medic al drops at 0800, Branch Until Discontinu ed, Routine, Intra-op NaCl 0.9% 2020-07- No PRN, Univers (NS) 2-16 -16 Starting ity of injection 14:00: 16:[address] [facility] 00 :51 07/15/21 Medical at 0800, Branch Until [facility] 07/15/21 at 1052, Routine, Intra-op tetracaine 2020-07- No PRN, Univer s (PONTOCAINE 2-16 12-16 Starting ity of ) 0.5 % 14:00: 16:[address] [facility] ophthalmic 00 :51 07/15/21 Medic al drops at 0800, Branch Until [facility] 07/15/21 at 1052, Routine, Intra-op eye block 2020-07 Yes PRN, Univers syringe 11 2-16 Starting ity o f mL 13:59: on Naheed [place] 07/15/21 Medical at 0759, Branch Until Discontinu ed, Intra-op eye block 2020-07- No PRN, Univers syringe 11 2-16 12-16 Starting ity of mL 13:59: 16:[address] [facility] 00 :51 07/15/21 Medical at 0759, Branch Until [facility] 07/15/21 at 1052, Intra-op EPINEPHrine 2020-07 Yes PRN, Univer s (PF) 2-16 Starting ity of 1:1,000 (1 13:58: on Naheed [place] mg/mL) 00 07/15/21 Medical (ADRENALIN at 0758, Branc h (PF)) Until injection Discontinu ed, Routine, Intra-op balanced 2020-07 Yes PRN, Univers salt soln 2-16 Starting ity of no.2 irrig. 13:58: on [place] (BSS) 00 07/15/21 Medical ophthalmic at 0758, Branc h solution Until Discontinu ed, Routine, Intra-op EPINEPHrine 2020-07- No PRN, Unive rs (PF) 2-16 12-16 Starting ity of 1:1,000 (1 13:58: 16:52 on [place] mg/mL) 00 :51 07/15/21 Medical (ADRENALIN at 0758, Branc h (PF)) Until Naheed injection 07/15/21 at 1052, Routine, Intra-op balanced 2020-07- No PRN, Univers salt soln 2-16 12-16 Starting ity o f no.2 irrig. 13:58: 16:52 on [place] [place] (BSS) 00 :51 07/15/21 Medical ophthalmic at 0758, Branc h solution Until Naheed 07/15/21 at 1052, Routine, Intra-op lactated 2020-07- No 1000mL at 42 Unive rs ringers IV 2-16 12-16 mL/hr, ity of infusion 13:15: 13:06 1,000 mL, [place] 1,000 mL 00 :00 IV Medical Infusion, Branch ONCE, 1 dose, On Naheed 07/15/21 at 0715, Routine, DSU Pre-op lactated 2020-07- No 1000mL at 42 Unive rs ringers IV 2-16 12-16 mL/hr, ity of infusion 13:15: 13:06 [...] No Univers medications 2-14 ity of 11:21: [place] 11 Medical Branch SYMBICORT 2020-07 Yes Univers [...] s drochloroth 0-24 ity of iazide 00:00: [place] 100-12.5 mg 00 Medical per tablet Branch glimepiride 2020-07 Yes Univer s 4 mg tablet 0-24 ity of 00:00: [place] 00 Medical Branch losartan-hy 2020-07 Yes Univer s drochloroth 0-24 ity of iazide 00:00: [place] 100-12.5 mg 00 Medical per tablet Branch glimepiride 2020-07 Yes Univer s 4 mg tablet 0-24 ity of 00:00: [place] 00 Medical Branch losartan-hy 2020-07 Yes Univer s drochloroth 0-24 ity of iazide 00:00: [place] 100-12.5 mg 00 Medical per tablet Branch glimepiride 2020-07 Yes Univer s 4 mg tablet 0-24 ity of 00:00: [place] 00 Medical Branch losartan-hy 2020-07 Yes Univer s drochloroth 0-24 ity of iazide 00:00: [place] 100-12.5 mg 00 Medical per tablet Branch glimepiride 2020-07 Yes Univer s 4 mg tablet 0-24 ity of 00:00: [place] 00 Medical Branch losartan-hy 2020-07 Yes Univer s drochloroth 0-24 ity of iazide 00:00: [place] 100-12.5 mg 00 Medical per tablet Branch glimepiride 2020-07 Yes Univer s 4 mg tablet 0-24 ity of 00:00: [place] 00 Medical Branch losartan-hy 2020-07 Yes Univer s drochloroth 0-24 ity of iazide 00:00: [place] 100-12.5 mg 00 Medical per tablet Branch glimepiride 2020-07 Yes Univer s 4 mg tablet 0-24 ity of 00:00: [place] 00 Medical Branch losartan-hy 2020-07 Yes Univer s drochloroth 0-24 ity of iazide 00:00: [place] 100-12.5 mg 00 Medical per tablet Branch carvediloL 2020-07 Yes Univers 12.5 mg 0-12 ity of tablet 00:00: [place] 00 Medical Branch carvediloL 2020-07 Yes Univers 12.5 mg 0-12 ity of tablet 00:00: [place] 00 Medical Branch carvediloL 2020-07 Yes Univers 12.5 [...] 12.5 mg 0-12 ity of tablet 00:00: [place] [facility] Immunizations Ordered Filled Immunization Date Status Comments [facility] Immunization Name Name SARS-COV-2 COVID-19 2021-05-25 Completed Unive rsity of MODERNA VACCINE 00:00:00 [facility] SARS-COV-2 COVID-19 2021-05-25 Completed Unive rsity of MODERNA VACCINE 00:00:00 [facility] SARS-COV-2 COVID-19 2021-05-25 Completed Unive rsity of MODERNA VACCINE 00:00:00 [facility] SARS-COV-2 COVID-19 2021-05-25 Completed Unive rsity of MODERNA VACCINE 00:00:00 [facility] SARS-COV-2 COVID-19 2021-05-25 Completed Unive rsity of MODERNA VACCINE 00:00:00 [facility] SARS-COV-2 COVID-19 2021-05-25 Completed Unive rsity of MODERNA VACCINE 00:00:00 [facility] SARS-COV-2 COVID-19 2021-05-25 Completed Unive rsity of MODERNA VACCINE 00:00:00 [facility] SARS-COV-2 COVID-19 2020-11-26 Completed Unive rsity of MODERNA VACCINE 00:00:00 [facility] SARS-COV-2 COVID-19 2020-11-26 Completed Unive rsity of MODERNA VACCINE 00:00:00 [facility] SARS-COV-2 COVID-19 2020-11-26 Completed Unive rsity of MODERNA VACCINE 00:00:00 [place] Med ical Branch SARS-COV-2 COVID-19 2020-11-26 Completed Unive rsity of MODERNA VACCINE 00:00:00 [facility] ical Branch SARS-COV-2 COVID-19 2020-11-26 Completed Unive rsity of MODERNA VACCINE 00:00:00 [facility] ical Branch SARS-COV-2 COVID-19 2020-11-26 Completed Unive rsity of MODERNA VACCINE 00:00:00 [facility] SARS-COV-2 COVID-19 2020-11-26 Completed Unive rsity of MODERNA VACCINE 00:00:00 [facility] SARS-COV-2 COVID-19 2020-11-26 Completed Unive rsity of MODERNA VACCINE 00:00:00 [facility] SARS-COV-2 COVID-19 2020-10-22 Completed Unive rsity of MODERNA VACCINE 00:00:00 [facility] SARS-COV-2 COVID-19 2020-10-22 Completed Unive rsity of MODERNA VACCINE 00:00:00 [facility] SARS-COV-2 COVID-19 2020-10-22 Completed Unive rsity of MODERNA VACCINE 00:00:00 [facility] SARS-COV-2 COVID-19 2020-10-22 Completed Unive rsity of MODERNA VACCINE 00:00:00 [facility] ical Branch SARS-COV-2 COVID-19 2020-10-22 Completed Unive rsity of MODERNA VACCINE 00:00:00 [facility] SARS-COV-2 COVID-19 2020-10-22 Completed Unive rsity of MODERNA VACCINE 00:00:00 [facility] SARS-COV-2 COVID-19 2020-10-22 Completed Unive rsity of MODERNA VACCINE 00:00:00 [facility] SARS-COV-2 COVID-19 2020-10-22 Completed Unive rsity of MODERNA VACCINE 00:00:00 [facility] Vital Signs Vital Name Observation Time Observation Value Comments Source Systolic blood 2021-08-12 14:47:00 149 mm[Hg] Univer sity of pressure [facility] Branch Diastolic blood 2021-08-12 14:47:00 69 mm[Hg] Unive rsity of pressure [place] [facility] Heart rate 2021-08-12 14:47:00 55 /min Universi ty [facility] [place] [facility] Respiratory rate 2021-08-12 14:47:00 11 /min Univ ersity of [place] [facility] Oxygen saturation in 2021-08-12 14:47:00 100 /min University of Arterial blood by [facility] Pulse oximetry Branch Body temperature 2021-08-12 14:29:00 36.44 Meli Univ ersity of [place] [facility] Body height 2021-08-03 19:32:00 177.8 cm Universi [facility] [place] [facility] Body weight 2021-08-03 19:32:00 90.7 kg [facility] [place] [facility] BMI 2021-08-03 19:32:00 28.69 kg/m2 [facility] [place] [facility] Systolic blood 2021-08-12 12:41:00 151 mm[Hg] Univer sity of pressure [place] [facility] Diastolic blood 2021-08-12 12:41:00 62 mm[Hg] Unive rsity of pressure [place] [facility] Heart rate 2021-08-12 12:41:00 65 /min [facility]i [facility] [place] [facility] Respiratory rate 2021-08-12 12:41:00 18 /min Univ ersity of [place] [facility] Oxygen saturation in 2021-08-12 12:41:00 99 /min University of Arterial blood by [facility] Pulse oximetry Branch Body height 2021-08-03 19:32:00 177.8 cm [facility]i [facility] [place] [facility] Body weight 2021-08-03 19:32:00 90.7 kg Universi ty [facility] [place] [facility] BMI 2021-08-03 19:32:00 28.69 kg/m2 [facility]i [facility] [place] [facility] Systolic blood 2021-07-15 14:41:00 144 mm[Hg] Univer sity of pressure [place] [facility] Diastolic blood 2021-07-15 14:41:00 71 mm[Hg] Unive rsity of pressure [place] [facility] Heart rate 2021-07-15 14:41:00 55 /min [facility] [place] [facility] Respiratory rate 2021-07-15 14:40:00 19 /min Univ ersity [facility] [place] [facility] Oxygen saturation in 2021-07-15 14:40:00 99 /min University of Arterial blood by [facility] Pulse oximetry Branch Body temperature 2021-07-15 14:26:00 36.39 Meli [facility] ersity [facility] Body height 2021-07-13 17:00:00 177.8 cm Universi ty of [facility] Body weight 2021-07-13 17:00:00 90.719 kg Universi ty of [facility] BMI 2021-07-13 17:00:00 28.70 kg/m2 Universi ty of [facility] Systolic blood 2021-07-15 14:36:00 155 mm[Hg] Univer sity of pressure [facility] Diastolic blood 2021-07-15 14:36:00 77 mm[Hg] Unive rsity of [facility] Heart rate 2021-07-15 14:36:00 56 /min Universi [facility] Oxygen saturation in 2021-07-15 14:36:00 98 /min [place] of Arterial blood by [facility] Pulse oximetry Branch Respiratory rate 2021-07-15 14:34:00 43 /min [facility] Body temperature 2021-07-15 14:26:00 36.39 Meli [facility] Body height 2021-07-13 17:00:00 177.8 cm Universi ty [facility] Body weight 2021-07-13 17:00:00 90.719 kg Universi [facility] BMI 2021-07-13 17:00:00 28.70 kg/m2 Universi [facility] Procedures Procedure Date / Time Performing Source Performed Clinician PHACOEMULSIFICATION OF 2021-08-12 Alycia Greene [facility] CATARACT WITH INTRAOCULAR 13:54:00 [facility] LENS IMPLANT POCT GLUCOSE(AGE >30DAYS) 2021-08-12 Abdirahman [facility] 12:55:00 [facility] POCT GLUCOSE(AGE >30DAYS) 2021-08-12 Abdirahman [facility] 12:55:00 [facility] POCT GLUCOSE (AUTOMATED) 2021-08-12 Alycia Greene [facility] 12:50:00 [facility] POCT GLUCOSE (AUTOMATED) 2021-08-12 Arcenio [facility] 12:50:00 [facility] ASSIGNMENT OF BENEFITS 2021-08-05 Doctor Dontrell [facility] 19:15:30 [facility] PHACOEMULSIFICATION OF 2021-07-15 Alycia Greene [facility] CATARACT WITH INTRAOCULAR 13:48:00 Sonny Coppola LENS IMPLANT POCT GLUCOSE (AUTOMATED) 2021-07-15 Alycia Greene [facility] 13:04:00 Sonny Coppola POCT GLUCOSE (AUTOMATED) 2021-07-15 Alycia Greene [facility] 13:04:00 Sonny Medical [place] PATIENT QUESTIONNAIRE 2021-07-15 Doctor Dontrell [facility] 06:01:00 [facility] NO SHOW OR MISSED APPOINTMENT 2021-07-09 Doctor Dontrell [facility] POLICY ACKNOWLEDGEMENT 21:25:51 [facility] aliyahch NO SHOW OR MISSED APPOINTMENT 2021-07-09 Doctor Jon [facility] POLICY ACKNOWLEDGEMENT 21:25:51 [facility] mario [facility] PATIENT FINANCIAL POLICY 2021-07-09 Doctor Dontrell [facility] 21:25:18 [facility] PATIENT FINANCIAL POLICY 2021-07-09 Doctor Dontrell [facility] 21:25:18 [facility] NOTICE OF BILLING PRACTICES 2021-07-09 Doctor Dontrell [facility] FOR MEDICARE PATIENTS 21:24:55 [facility] anch NOTICE OF BILLING PRACTICES 2021-07-09 Doctor Jon [facility] FOR MEDICARE PATIENTS 21:24:55 [facility] NOTICE OF PRIVACY PRACTICES 2021-07-09 Doctor Dontrell [facility] 21:24:37 [facility] NOTICE OF PRIVACY PRACTICES 2021-07-09 Doctor Dontrell [facility] 21:24:37 [facility] CONSENT/REFUSAL FOR DIAGNOSIS 2021-07-09 Doctor Jon [facility] AND TREATMENT 21:24:19 [facility] CONSENT/REFUSAL FOR DIAGNOSIS 2021-07-09 Doctor Dontrell [facility] AND TREATMENT 21:24:19 [facility] ASSIGNMENT OF BENEFITS 2021-07-09 Doctor Jon [facility] 21:24:01 [facility] ASSIGNMENT OF BENEFITS 2021-07-09 Doctor Unassigned, [facility] 21:24:01 [facility] VACCINATIONS - CONSENTS, 2021-05-23 Doctor Unassigned, [facility] ELIGIBILITY, HISTORY 05:01:00 [facility] Encounters Start End Encounter Admission Attending Care Care Encounter Source Date/Time Date/Time Type Type Clinicians Facility Department ID 2021-11-15 Inpatient Raslan, HCACL OUTD [id number] [facility] 13:00:00 Dillon [id number] [facility] 2021-10-25 Inpatient EL Raslan, HCACL OUTD [id number] [facility] 11:30:00 Dillon [id number] [facility] 2021-11-17 2021-11-17 Outpatient EL Raslan, HCACL OUTD [id number] [facility] 04:54:00 04:54:00 Dillon [id number] [facility] 2021-10-27 2021-10-27 Outpatient EL Raslan, HCACL OUTD [id number] [facility] 05:18:00 05:18:00 Dillon [id number] [facility] 2021-10-27 2021-10-27 Outpatient EL Rachael, HCACL HC[facility] [id number] [facility] 05:18:00 05:18:00 Dillon 28 [facility] 2021-08-12 2021-08-12 Outpatient Donald GREENE [facility] OPH [id number] Univers 06:39:00 08:59:00 ALYCIA carter [facility] 2021-08-12 2021-08-12 [facility] [id number] Univers 06:39:00 08:59:00 Encounter Alycia JURADO 350.1.13.10 [place] [phone] [place] [id number] Branch 2021-08-12 2021-08-12 Surgery [facility] [id number] Univers 07:30:00 08:05:00 Alycia JURADO 350.1.13.10 i [place] [id number] [facility] 020 Branch 2021-08-10 2021-08-10 Laboratory Only, Adc Test [facility] 1.2.840. 114 [id number] Univers 10:30:00 10:45:00 Only Alycia Greene 350.1.1 3.10 [place] [id number] [facility] 353 Branch 2021-08-10 2021-08-10 Outpatient R [facility] [id number] Univers 10:30:00 10:30:00 [id number] ity of [facility] 2021-08-10 2021-08-10 [facility] [id number] Univers 10:30:00 10:30:00 ALYCIA carter [facility] 2021-08-05 2021-08-05 Orders Doctor MANUEL [id number] Univers 00:00:00 00:00:00 Only Unassigned, ORIN 350.1.13.10 [facility] 4.2.7.2.686 Paul as [phone] [facility] 009 Branch 2021-07-15 2021-07-[address] [facility] 1.2.840.114 [id number] Univers 06:43:00 08:41:00 Encounter Alycia JURADO 350.1.13.10 [place] [id number] [facility] 071 Branch 2021-07-15 2021-07-[address] [id number] Univers 06:43:00 08:41:00 ALYCIA carter [facility] 2021-07-15 2021-07-15 Surgery Arcenio [facility] [id number] Univers 08:00:00 08:36:00 Alycia JURADO 350.1.13.10 i [place] [id number] [facility] 020 Branch 2021-07-15 2021-07-15 Orders Doctor MANUEL 1.2.840.114 [id number] Univers 00:00:00 00:00:00 Only Unassigned, ORIN 350.1.13.10 [facility] [place] [facility] 4.2.7.2.686 Paul as [phone] [address] 2021-07-09 2021-07-09 Poultry Pathologist Marcelle, Adc Lab Main [facility] 1.2.8 40.114 [id number] Univers 15:28:55 15:43:55 Visit Alycia [place] 350.1.1 3.10 [place] [id number] [place] [address] 2021-07-09 2021-07-09 Outpatient Donald GREENE [facility] [id number] Univers 12:00:00 12:00:00 ALYCIA [facility] 2021-07-08 2021-07-08 Outpatient Donald GREENE [facility] [id number] Univers 15:15:00 15:15:00 ALYCIA [facility] 2021-05-23 2021-05-23 Orders Doctor KALEB 1.2.840.114 [id number] Univers 00:00:00 00:00:00 Only Unassigned, ORIN 350.1.13.10 [place] [facility] 4.2.7.2.686 [place] as [phone] [address] Results Test Description Test Time Test Comments Results Result Comments Source ACT-ISTAT 2021-11-17 13:52:00 Test Item Value Reference Range Interpretation Comme nts ACT-ISTAT (test code = ACTI) 249 SEC 74-137 H Performed by certified dry press operator helper at [facility] GLUCOSE [id number] 13:37:00 Test Item Value Reference Range Interpretation Comments GLUCOSE BEDSIDE (test 62 MG/DL 70-110 L Perfor med by certified code = GLUBED) dry press operator helper at [facility] GLUCOSE [id number] 12:04:00 Test Item Value Reference Range Interpretation Comments GLUCOSE BEDSIDE (test 73 MG/DL 70-110 N Perfor med by certified code = GLUBED) dry press operator helper at [facility] BASIC METABOLIC [id number] 14:52:00 Test Item Value Reference Range Interpretation Comments SODIUM (test code = NA) 141 mEq/L 134-147 N POTASSIUM (test code = 4.5 mEq/L 3.4-5.0 N K) CHLORIDE (test code = 110 mEq/L 100-108 H CL) CARBON DIOXIDE (test 23 mEq/l 21-33 N code = CO2) ANION GAP (test code = 12 0-20 N GAP) GLUCOSE (test code = 165 mg/dL 70-110 H GLU) BLOOD UREA NITROGEN 41 mg/dL 7-18 H (test code = BUN) GLOMERULAR FILTRATION 35.0 70-80 L Units of measure = RATE (test code = GFR) ml/mi n/1.73 m2 CREATININE (test code = 1.9 mg/dL 0.6-1.3 H CREAT) CALCIUM (test code = 8.7 mg/dL 8.0-10.5 N CA) PROTHROMBIN [id number] 14:46:00 Test Item Value Reference Range Interpretation Comments PROTHROMBIN TIME 11.2 SECONDS 9.3-12.9 N PATIENT (test code = PTP) INTERNATIONAL NORMAL 1.0 0.8-1.2 N TARGET RATIO (test code = INR BY IN DICATION INR) Indication INR1. Prophyl axis of venous thrombos is 2.0 - 3. 0 (orthopedic jurgen wilton), Prophylaxis of venous thrombos is (other than hig h-risk surgery), Opal tment of Deep Vein Thrombosis/Pulm onary Embolism, Preve ntion of systemic emb olism - Tissue heart va lves, Acute Myocardia l Infarction (to prevent systemic embo lism), Valvular heart disease, Atri al Fibrillation, Bileaflet mecha nical valve in aortic position.2. Mec hanical prosthetic valv es (high risk), 2.5 - 3.5 Presence of Lupus Anticoagu lant or Antiphospholi pid Antibodies, Pre vention of systemic e mbolism - Acute Myocard ial Infarction (t o prevent recurre nt infarct). CBC W/AUTO [id number] 14:34:00 Test Item Value Reference Range Interpretation Comments WHITE BLOOD CELL (test code = 7.3 x10 3/uL 4.5-11.0 N WBC) RED BLOOD CELL (test code = 3.36 x10 6/uL 4.00-5.60 L RBC) HEMOGLOBIN (test code = HGB) 10.1 g/dL 12.5-16.9 L HEMATOCRIT (test code = HCT) 31.9 % 37.5-50.7 L MEAN CELL VOLUME (test code = 94.9 fL 81.0-99.0 N MCV) MEAN CELL HGB (test code = MCH) 30.1 pg 27.0-33.0 N MEAN CELL HGB CONCETRATION 31.7 g/dL 33.0-37.0 L (test code = MCHC) RED CELL DISTRIBUTION WIDTH CV 13.3 % 11.5-14.5 N (test code = RDW) RED CELL DISTRIBUTION WIDTH SD 46.8 fL 37.0-54.0 N (test code = RDW-SD) PLATELET COUNT (test code = 228 x10 3/uL 150-400 N PLT) MEAN PLATELET VOLUME (test code 10.4 fL 7.0-9.0 H = MPV) NEUTROPHIL % (test code = NT%) 70.7 % 56.0-77.0 N IMMATURE GRANULOCYTE % (test 0.4 % 0.0-2.0 N code = IG%) LYMPHOCYTE % (test code = LY%) 16.0 % 14.0-32.0 N MONOCYTE % (test code = MO%) 6.6 % 4.8-9.0 N EOSINOPHIL % (test code = EO%) 5.6 % 0.3-3.7 H BASOPHIL % (test code = BA%) 0.7 % 0.0-2.0 N NUCLEATED RBC % (test code = 0.0 % 0-0 N NRBC%) NEUTROPHIL # (test code = NT#) 5.16 x10 3/uL 2.0-7.6 N IMMATURE GRANULOCYTE # (test 0.03 x10 3/uL 0.00-0.03 N code = IG#) LYMPHOCYTE # (test code = LY#) 1.17 x10 3/uL 1.0-3.8 N MONOCYTE # (test code = MO#) 0.48 x10 3/uL 0.1-0.8 N EOSINOPHIL # (test code = EO#) 0.41 x10 3/uL 0.0-0.2 H BASOPHIL # (test code = BA#) 0.05 x10 3/uL 0.0-0.2 N NUCLEATED RBC # (test code = 0.00 x10 3/uL 0.0-0.1 N NRBC#) MANUAL DIFF REQUIRED (test code NO = MDIFF) [id number] 10:07:00 Test Item Value Reference Range Interpretation Comments ACT-ISTAT (test code 249 SEC 74-137 H Perform ed by certified = ACTI) dry press operator helper at [facility] GLUCOSE [id number] 08:04:00 Test Item Value Reference Range Interpretation Comments GLUCOSE BEDSIDE (test 164 MG/DL 70-110 H Perfor med by certified code = GLUBED) dry press operator helper at [facility] BASIC METABOLIC [id number] 13:09:00 Test Item Value Reference Range Interpretation Comments SODIUM (test code = NA) 140 mEq/L 134-147 N POTASSIUM (test code = 4.6 mEq/L 3.4-5.0 N K) CHLORIDE (test code = 108 mEq/L 100-108 N CL) CARBON DIOXIDE (test 25 mEq/l 21-33 N code = CO2) ANION GAP (test code = 11 0-20 N GAP) GLUCOSE (test code = 208 mg/dL 70-110 H GLU) BLOOD UREA NITROGEN 31 mg/dL 7-18 H (test code = BUN) GLOMERULAR FILTRATION 35.0 70-80 L Units of measure = RATE (test code = GFR) ml/mi n/1.73 m2 CREATININE (test code = 1.9 mg/dL 0.6-1.3 H CREAT) CALCIUM (test code = 8.8 mg/dL 8.0-10.5 N CA) PROTHROMBIN [id number] 12:53:00 Test Item Value Reference Range Interpretation Comments PROTHROMBIN TIME 11.3 SECONDS 9.3-12.9 N PATIENT (test code = PTP) INTERNATIONAL NORMAL 1.0 0.8-1.2 N TARGET RATIO (test code = INR BY IN DICATION INR) Indication INR1. Prophyl axis of venous thrombos is 2.0 - 3. 0 (orthopedic jurgen w[place]), Prophylaxis of venous thrombos is (other than hig h-risk surgery), Opal tment of Deep Vein Thrombosis/Pulm onary Embolism, Preve ntion of systemic emb olism - Tissue heart va lves, Acute Myocardia l Infarction (to prevent systemic embo lism), Valvular heart disease, Atri al Fibrillation, Bileaflet mecha nical valve in aortic position.2. Mec hanical prosthetic valv es (high risk), 2.5 - 3.5 Presence of Lupus Anticoagu lant or Antiphospholi pid Antibodies, Pre vention of systemic e mbolism - Acute Myocard ial Infarction (t o prevent recurre nt infarct). CBC W/AUTO [id number] 12:46:00 Test Item Value Reference Range Interpretation Comments WHITE BLOOD CELL (test code = 7.7 x10 3/uL 4.5-11.0 N WBC) RED BLOOD CELL (test code = 3.49 x10 6/uL 4.00-5.60 L RBC) HEMOGLOBIN (test code = HGB) 10.5 g/dL 12.5-16.9 L HEMATOCRIT (test code = HCT) 32.3 % 37.5-50.7 L MEAN CELL VOLUME (test code = 92.6 fL 81.0-99.0 N MCV) MEAN CELL HGB (test code = MCH) 30.1 pg 27.0-33.0 N MEAN CELL HGB CONCETRATION 32.5 g/dL 33.0-37.0 L (test code = MCHC) RED CELL DISTRIBUTION WIDTH CV 12.9 % 11.5-14.5 N (test code = RDW) RED CELL DISTRIBUTION WIDTH SD 43.8 fL 37.0-54.0 N (test code = RDW-SD) PLATELET COUNT (test code = 265 x10 3/uL 150-400 N PLT) MEAN PLATELET VOLUME (test code 10.5 fL 7.0-9.0 H = MPV) NEUTROPHIL % (test code = NT%) 71.7 % 56.0-77.0 N IMMATURE GRANULOCYTE % (test 1.0 % 0.0-2.0 N code = IG%) LYMPHOCYTE % (test code = LY%) 16.5 % 14.0-32.0 N MONOCYTE % (test code = MO%) 6.1 % 4.8-9.0 N EOSINOPHIL % (test code = EO%) 4.2 % 0.3-3.7 H BASOPHIL % (test code = BA%) 0.5 % 0.0-2.0 N NUCLEATED RBC % (test code = 0.0 % 0-0 N NRBC%) NEUTROPHIL # (test code = NT#) 5.52 x10 3/uL 2.0-7.6 N IMMATURE GRANULOCYTE # (test 0.08 x10 3/uL 0.00-0.03 H code = IG#) LYMPHOCYTE # (test code = LY#) 1.27 x10 3/uL 1.0-3.8 N MONOCYTE # (test code = MO#) 0.47 x10 3/uL 0.1-0.8 N EOSINOPHIL # (test code = EO#) 0.32 x10 3/uL 0.0-0.2 H BASOPHIL # (test code = BA#) 0.04 x10 3/uL 0.0-0.2 N NUCLEATED RBC # (test code = 0.00 x10 3/uL 0.0-0.1 N NRBC#) MANUAL DIFF REQUIRED (test code NO = MDIFF) - XR CHEST 2 [id number] 00:00:00 [facility] : 1950 Sex: M FAX: Long Davis MD [phone] [place]: St: PRE FAX: Manjinder Felder MD [phone] Name: KRISHNA SAGASTUME [facility] : 1950 Age/S: 70/M [address] [place] [address] Unit #: [id number] Loc: [place] [address] Phys: Dillon Cano MDAcct: [id number] Dis Date: Status: PRE SDC PHONE #: [phone] Exam Date: 10/25/2021 1310 FAX #: [phone] Reason: PREOP EXAMS: CPT CODE: [id number] XR CHEST 2 V 07537 PROCEDURE INFORMATION: Exam: XR Chest Exam date and time: 10/25/2021 12:54 PM Age: 70 y ears old Clinical indication: Pre-operative exam; Respiratory screening exam; Additional info: Preop TECHNIQUE: Imaging protocol: XR of the chest. Views: 2 views. PA and Lateral COMPARISON: No relevant prior studies available. FINDINGS: Lungs: No consolidation. Pleural spaces: No pleural effusion. Heart/Mediastinum: The heart and vascular markings are within limits of normal. Bones/joints: No gross acute findings. IMPRESSION: No acute cardiopulmonary findings at 0592 Reported and signed by: Dirk Rivera D.O. CC: Long Molina MD; Dillon Cano MD Technologist: RT Kody(Donald) Trnscrd Renny ate/Time/By: 10/25/2021 (0249) : By: [email or web address] Orig Print D/T: S: 10/25/2021 (2783) PAGE 1 Signed Report POCT GLUCOSE (AUTOMATED)2021-08-12 13:52:57 Test Item Value Reference Range Interpretation Comments POCT GLU (test code = 1531124632) 113 mg/dL 70-110 H Lab Interpretation (test code = Abnormal 95092-8) General acute hospital GLUCOSE (AUTOMATED)2021-08-12 13:52:57 Test Item Value Reference Range Interpretation Comments POCT GLU (test code = 7689099460) 113 mg/dL 70-110 H Lab Interpretation (test code = Abnormal 86279-4) General acute hospital [id number] 12:55:00 Test Item Value Reference Range Interpretation Comments POCT Glu (age>30days) (test code = 113 mg/dL 70-110 A 3342) Lab Interpretation (test code = Abnormal 52641-6) General acute hospital [id number] 12:55:00 Test Item Value Reference Range Interpretation Comments POCT Glu (age>30days) (test code = 113 mg/dL 70-110 A 3342) Lab Interpretation (test code = Abnormal 85058-3) General acute hospital GLUCOSE (AUTOMATED)2021-07-15 13:07:57 Test Item Value Reference Range Interpretation Comments POCT GLU (test code = 2008150039) 150 mg/dL 70-110 H Lab Interpretation (test code = Abnormal 62825-5) General acute hospital GLUCOSE (AUTOMATED)2021-07-15 13:07:57 Test Item Value Reference Range Interpretation Comments POCT GLU (test code = 0766947795) 150 mg/dL 70-110 H Lab Interpretation (test code = Abnormal 27218-8) [facility]
--- NOTE | 2021-11-17 19:57 | EDPHYS ---
Physician Documentation [facility] Name: Solomon Murdock Age: 70 yrs Sex: Male : 1950 Arrival Date: 11/17/2021 Time: 18:10 Bed 20 Private MD: Sharyn Molina C ED Physician Anibal Killian HPI: 11/17 19:51 This 70 yrs old Male presents to ER via Wheelchair with complaints of Post jewelry internship Bleeding. 19:51 The patient presents with bleeding. The complaints affect the right upper thigh. Onset: rn The symptoms/episode began/occurred today. Modifying factors: The symptoms are alleviated by nothing. the symptoms are aggravated by nothing. Associated signs and symptoms: Pertinent negatives fever, warmth, weakness. Severity of symptoms: At their worst the symptoms were mild, in the emergency department the symptoms have resolved. The patient has not experienced similar symptoms in the past. The patient has been recently seen by a physician:. Pt presents after right femoral arterial puncture for left leg procedure by Dr. Cano this afternoon. States dressing was changed at hospital prior to leaving because was "oozing", got home and still bleeding but significantly slower. Has not checked wound since arrival. Small amount of bleeding total. Pt taking plavix for last 3 weeks. . Historical: - Allergies: 18:58 NKA; ab2 - PMHx: 18:58 asbestosis; COPD; Diabetes - NIDDM; Hypertension; Sleep Apnea; CVA; ab2 - PSHx: 18:58 Appendectomy; back surgery; ab2 - Immunization history:: Adult Immunizations up to date. - Social history:: Smoking status: Patient reports the use of cigarette tobacco products, smokes one-half pack cigarettes per day. - Family history:: not pertinent. - Hospitalizations: : Patient was recently seen at. ROS: 19:51 Constitutional: Negative for fever, chills, and weight loss, Cardiovascular: Negative rn for chest pain, palpitations, and edema, Respiratory: Negative for shortness of breath, cough, wheezing, and pleuritic chest pain, Abdomen/GI: Negative for abdominal pain, nausea, vomiting, diarrhea, and constipation, Back: Negative for injury and pain, MS/Extremity: + bleeding for arterial puncture site. Exam: 19:51 Constitutional: This is a well developed, well nourished patient who is awake, alert, rn and in no acute distress. Skin: Warm, dry with normal turgor. Normal color with no rashes, no lesions, and no evidence of cellulitis. MS/ Extremity: No cyanosis. Right groin with puncture site, no active bleeding, no pulsatile mass, no ecchymosis, no tenderness. Vital Signs: 18:56 BP 164 / 71; Pulse 67; Resp 18; Temp 97.7; Pulse Ox 98% ; Weight 92.99 kg; Height 5 ft. ab2 10 in. (177.80 cm); Pain 0/10; 20:14 BP 168 / 75; Pulse 77; Resp 16 S; Pulse Ox 97% on R/A; bb 18:56 Body Mass Index 29.41 (92.99 kg, 177.80 cm) ab2 MDM: 19:44 Patient medically screened. rn 19:51 Differential diagnosis: post arterial puncture bleeding, bleeding 2/2 plavix. Data rn reviewed: vital signs, nurses notes, and as a result, I will discharge patient. Counseling: I had a detailed discussion with the patient and/or guardian regarding: the historical points, exam findings, and any diagnostic results supporting the discharge/admit diagnosis, the need for outpatient follow up, to return to the emergency department if symptoms worsen or persist or if there are any questions or concerns that arise at home. Response to treatment: the patient's symptoms have resolved after treatment, and as a result, I will discharge patient. Special discussion: I discussed with the patient/guardian in detail that at this point there is no indication for admission to the hospital. It is understood, however, that if the symptoms persist or worsen the patient needs to return immediately for re-evaluation. ED course: NO signs of pseudoaneurysm or aneurysm, both legs normal color, NV intact. Bleeding resolved prior to arrival, will redress with surgicel just incase bleeds again, will f/u with Dr. Cano, return precautions given and uderstood.. 11/17 20:08 Order name: Wound dressing; Complete Time: 20:18 rn Administered Medications: No medications were administered Disposition Summary: 11/17/21 19:56 Discharge Ordered Location: Home rn Problem: new rn Symptoms: are resolved rn Condition: Stable rn Diagnosis - Post arterial catheterization bleeding, resolved rn Followup: rn - With: Dillon Cano MD - When: As needed - Reason: Recheck today's complaints, Re-evaluation by your physician Discharge Instructions: - Discharge Summary Sheet rn - Bleeding Precautions When on Anticoagulant Therapy, Adult rn - Uncontrolled Wound Bleeding rn Forms: - Medication Reconciliation Form rn - Thank You Letter rn - 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
--- NOTE | 2021-11-17 19:57 | ER ---
Nurse's Notes [facility] Name: Solomon Murdock Age: 70 yrs Sex: Male : 1950 Arrival Date: 11/17/2021 Time: 18:10 Bed 20 Private MD: Sharyn Molina C Diagnosis: Post arterial catheterization bleeding, resolved Presentation: 11/17 18:56 Chief complaint: Patient states: "I had the arteries in my left leg cleaned out this ab2 morning and they went through my right groin to do it. Where they went in is oozing blood, they told me if this happens to call 911.". Coronavirus screen: Vaccine status: Patient reports receiving the 2nd dose of the covid vaccine. Client denies travel out of the [place] in the last 14 days. At this time, the client does not indicate any symptoms associated with coronavirus-19. Ebola Screen: Patient negative for fever greater than or equal to 101.5 degrees Fahrenheit, and additional compatible Ebola Virus Disease symptoms Patient denies exposure to infectious person. Patient denies travel to an Ebola-affected area in the 21 days before illness onset. No symptoms or risks identified at this time. Initial Sepsis Screen: Does the patient meet any 2 criteria? No. Patient's initial sepsis screen is negative. Does the patient have a suspected source of infection? No. Patient's initial sepsis screen is negative. Risk Assessment: Do you want to hurt yourself or someone else? Patient reports no desire to harm self or others. Onset of symptoms is unknown. 18:56 Method Of Arrival: Wheelchair ab2 18:56 Acuity: CHARMAINE 4 ab2 Triage Assessment: 18:58 General: Appears in no apparent distress. comfortable, Behavior is calm, cooperative, ab2 appropriate for age. Pain: Denies pain. Neuro: Level of Consciousness is awake, alert, obeys commands, Oriented to person, place, time, situation, Appropriate for age [employer] are equal bilaterally Moves all extremities. Gait is steady. Respiratory: Airway is patent Respiratory effort is even, unlabored, Respiratory pattern is regular, symmetrical. Historical: - Allergies: 18:58 NKA; ab2 - PMHx: 18:58 asbestosis; COPD; Diabetes - NIDDM; Hypertension; Sleep Apnea; CVA; ab2 - PSHx: 18:58 Appendectomy; back surgery; ab2 - Immunization history:: Adult Immunizations up to date. - Social history:: Smoking status: Patient reports the use of cigarette tobacco products, smokes one-half pack cigarettes per day. - Family history:: not pertinent. - Hospitalizations: : Patient was recently seen at. Screenin:44 Abuse screen: Denies threats or abuse. Nutritional screening: No deficits noted. bb Tuberculosis screening: No symptoms or risk factors identified. Fall Risk None identified. Assessment: 19:00 Reassessment: Patient appears in no apparent distress at this time. Post surgical ab2 dressing is intact. Blood noted on dressing, but not saturated or leaking through the dressing. Bleeding is controlled at this time. 19:44 General: Appears in no apparent distress. Behavior is calm, cooperative. Neuro: Level bb of Consciousness is awake, alert, obeys commands, Oriented to person, place, time, situation. Cardiovascular: Capillary refill < 3 seconds Patient's skin is warm and dry. Respiratory: Airway is patent Respiratory effort is even, unlabored, Respiratory pattern is regular. GI: No signs and/or symptoms were reported involving the gastrointestinal system. Derm: Skin is pink, warm \\T\\ dry. dressing to left groin has small amount of blood showing with no drainage around gauze. Musculoskeletal: Circulation, motion, and sensation intact. 20:17 Reassessment: Patient is alert, oriented x 3, equal unlabored respirations, skin bb warm/dry/pink. by verbalized understanding of and agrees to plan of care discharge instructions given pt ambulated with steady gait to exit accompanied by spouse. Vital Signs: 18:56 BP 164 / 71; Pulse 67; Resp 18; Temp 97.7; Pulse Ox 98% ; Weight 92.99 kg; Height 5 ft. ab2 10 in. (177.80 cm); Pain 0/10; 20:14 BP 168 / 75; Pulse 77; Resp 16 S; Pulse Ox 97% on R/A; bb 18:56 Body Mass Index 29.41 (92.99 kg, 177.80 cm) ab2 ED Course: 18:10 Patient arrived in ED. am2 18:11 Sharyn Molina MD is Private Physician. am2 18:58 Triage completed. ab2 18:59 Arm band placed on right wrist. ab2 19:44 Anibal Killian MD is Attending Physician. rn 19:44 Nidia Valero RN is Primary Nurse. bb 19:44 Patient has correct armband on for positive identification. Placed in gown. Bed in low bb position. Call light in reach. Side rails up X 1. Adult w/ patient. Pulse ox on. NIBP on. Warm blanket given. 19:55 Dillon Cano MD is Referral Physician. rn 20:15 Wound care: surgiseal, pressure dressing covered by tegaderm to right groin incision. bb 20:17 No provider procedures requiring assistance completed. Patient did not have IV access bb during this emergency room visit. Administered Medications: No medications were administered Outcome: 19:56 Discharge ordered by . rn 20:17 Discharged to home ambulatory, with family. bb 20:17 Condition: stable 20:17 Discharge instructions given to patient, Instructed on discharge instructions, follow up and referral plans. Demonstrated understanding of instructions, follow-up care. 20:18 Patient left the ED. bb Signatures: Nidia Valero, RN RN bb Anibal Killian MD MD rn Moreno, Amanda am2 Carloz Barbosa2
[2021-11-18 05:55] VITALS: TEMP 97.7
[2021-11-18 05:57] VITALS: BP 168/75; O2SAT 97
== END 2021-11-17 20:18 | disposition home or self-care (01) ==
LOC: ER 18:10
DX: L76.22 Postprocedural hemorrhage of skin and subcutaneous tissue following other procedure (principal); F17.210 Nicotine dependence, cigarettes, uncomplicated; Z79.01 Long term (current) use of anticoagulants
CPT/HCPCS: 99283

== ENCOUNTER 2024-04-09 13:05 | Emergency (ER) | payer OTHER ==
--- OUTSIDE RECORDS SUMMARY | 2024-04-09 13:11 | XMS REPORT | Continuity of Care Document ---
Author Name Unknown Address [address] [place] [address] [facility] thconnect Address [address] [facility] [place] [address] Care Team Providers Care [facility] Insurance Representative Name Role Phone Long Molina Primary Care Physician [phone] Dillon Cano Attending Clinician Unavailable ALYCIA GREENE Attending Clinician Raúl Greene MD, Alycia Dennis Attending Clinician [phone] Only, Adc Test Attending Clinician Unavailable Doctor Unassigned, [place] Attending Clinician U navailable Pob, Adc Lab Main Attending Clinician Unavailabl e Long Molina Admitting Clinician Unavailable ALYCIA GREENE Admitting Clinician Alycia Anthony MD Admitting Clinician [phone] Payers Payer Name Policy Type Policy Number Effective Date Expirati on Date Source [employer] CHOICE [id number] 2019 00:00:00 Allergies, Adverse Reactions, Alerts Allergy Name Allergy Type Status Severity Reaction(s) Onset Date Inactive Date Treating Clinician Comments Source No Known Allergie s DA Active U 3- 00:00: 00 [facility] NYLON DRUG INGREDI Active ITCHING 2020-07 2-14 00:00: 00 [facility] Nylon Propensi ty to adverse reaction s Active Itching 2020-07 00:00: 00 [facility] NO KNOWN ALLERGIE S Drug Class Active [facility] Social History Social Habit Start Date Stop Date Quantity Comments Source Exposure to SARS-CoV-2 (event) Not sure [facility] Tobacco Comment 2021-07-13 00:00:00 2021-07-13 00:00:00 smoker since 60 years [facility] Sex Assigned At 1950 00:00:00 1950 00:00:00 [facility] Smoking Status Start Date Stop Date Source Unknown if ever smoked [facility] Current every day smoker 2021-07-13 00:00:00 [facility] Medications Ordered Medication Name Filled Medication Name Start Date Stop Date Current Medication? Ordering Clinician Indication Dosage Frequency Signature (SIG) Comments Components Source neomycin-po lymyxin-dex amethasone (MAXITROL) 3.5 mg/g-10,000 unit/g-0.1 % ophthalmic ointment 08-12 14:20: 00 Yes PRN, Starting on Naheed 08/12/21 at 0820, Until Discontinu ed, Routine, Intra-op [facility] gentamicin injection 08-12 14:20: 00 Yes PRN, Starting on Naheed 08/12/21 at 0820, Until Discontinu ed, BABITA, Intra-op [facility] DUOVISC (DUOVISC VISCO ELASTIC) 3 %-4 %(0.5 mL) 1 % (0.55 mL) intraocular injection 08-12 14:20: 00 Yes PRN, Starting on Naheed 08/12/21 at 0820, Until Discontinu ed, Routine, Intra-op [facility] NaCl 0.9% (NS) injection 08-12 14:19: 00 Yes PRN, Starting on Naheed 08/12/21 at 0819, Until Discontinu ed, Routine, Intra-op [facility] dexamethaso ne (DECADRON PHOSPHATE) injection 08-12 14:19: 00 Yes PRN, Starting on Naheed 08/12/21 at 0819, Until Discontinu ed, Routine, Intra-op [facility] ceFAZolin (ANCEF) injection 08-12 14:19: 00 Yes PRN, Starting on Naheed 08/12/21 at 0819, Until Discontinu ed, BABITA, Intra-op [facility] EPINEPHrine (PF) 1:1,000 (1 mg/mL) (ADRENALIN (PF)) injection 08-12 14:12: 00 Yes PRN, Starting on Naheed 08/12/21 at 0812, Until Discontinu ed, Routine, Intra-op [facility] balanced salt soln no.2 irrig. (BSS) ophthalmic solution 08-12 14:12: 00 Yes PRN, Starting on Naheed 08/12/21 at 0812, Until Discontinu ed, Routine, Intra-op [facility] water for irrigation irrigation solution 08-12 14:10: 00 Yes PRN, Starting on Naheed 08/12/21 at 0810, Until Discontinu ed, Routine, Intra-op [facility] tetracaine (PONTOCAINE ) 0.5 % ophthalmic drops 08-12 14:05: 00 Yes PRN, Starting on Naheed 08/12/21 at 0805, Until Discontinu ed, Routine, Intra-op [facility] eye block syringe 11 mL 08-12 14:04: 00 Yes PRN, Starting on Naheed 08/12/21 at 0804, Until Discontinu ed, Intra-op [facility] cyclopent 1%-tropic 1%-phenyl 2.5%-ketor 0.5% (MYDRIATIC #5) ophthalmic solution syringe 0.5 mL 08-12 12:45: 00 08-12 13:03 :00 No .5mL 0.5 mL, Right Eye, ONCE, 1 dose, On Naheed 08/12/21 at 0645, Routine, DSU Pre-op [facility] lactated ringers IV infusion 1,000 mL 08-12 12:45: 00 08-12 12:56 :00 No 1000mL at 42 mL/hr, 1,000 mL, IV Infusion, ONCE, 1 dose, On Naheed 08/12/21 at 0645, Routine, DSU Pre-op [facility] metFORMIN 500 mg tablet 08-12 09:04: 20 Yes 500mg Take 500 mg by mouth 2 (two) times daily with meals. [facility] met[facility]MIN 500 mg tablet 08-09 09:56: 03 Yes 500mg Take 500 mg by mouth 2 (two) times daily with meals. [facility] neomycin-po lymyxin-dex amethasone (MAXITROL) 3.5 mg/g-10,000 unit/g-0.1 % ophthalmic ointment 2020-07 14:12: 00 Yes PRN, Starting on Naheed 07/15/21 at 0812, Until Discontinu ed, Routine, Intra-op [facility] gentamicin injection 2020-07 14:11: 00 Yes PRN, Starting on Naheed 07/15/21 at 0811, Until Discontinu ed, BABITA, Intra-op [facility] DUOVISC (DUOVISC VISCO ELASTIC) 3 %-4 %(0.5 mL) 1 % (0.55 mL) intraocular injection 2020-07 14:10: 00 Yes PRN, Starting on Naheed 07/15/21 at 0810, Until Discontinu ed, Routine, Intra-op [facility] dexamethaso ne (DECADRON PHOSPHATE) injection 2020-07 14:10: 00 Yes PRN, Starting on Naheed 07/15/21 at 0810, Until Discontinu ed, Routine, Intra-op [facility] ceFAZolin (ANCEF) injection 2020-07 14:09: 00 Yes PRN, Starting on Naheed 07/15/21 at 0809, Until Discontinu ed, BABITA, Intra-op [facility] water for irrigation irrigation solution 2020-07 14:03: 00 Yes PRN, Starting on Naheed 07/15/21 at 0803, Until Discontinu ed, Routine, Intra-op [facility] NaCl 0.9% (NS) injection 2020-07 14:00: 00 Yes PRN, Starting on Naheed 07/15/21 at 0800, Until Discontinu ed, Routine, Intra-op [facility] tetracaine (PONTOCAINE ) 0.5 % ophthalmic drops 2020-07 14:00: 00 Yes PRN, Starting on Naheed 07/15/21 at 0800, Until Discontinu ed, Routine, Intra-op [facility] eye block syringe 11 mL 2020-07 13:59: 00 Yes PRN, Starting on Naheed 07/15/21 at 0759, Until Discontinu ed, Intra-op [facility] EPINEPHrine (PF) 1:1,000 (1 mg/mL) (ADRENALIN (PF)) injection 2020-07 13:58: 00 Yes PRN, Starting on Naheed 07/15/21 at 0758, Until Discontinu ed, Routine, Intra-op [facility] balanced salt soln no.2 irrig. (BSS) ophthalmic solution 2020-07 13:58: 00 Yes PRN, Starting on Naheed 07/15/21 at 0758, Until Discontinu ed, Routine, Intra-op [facility] lactated ringers IV infusion 1,000 mL 2020-07 13:15: 00 07-15 13:06 :00 No 1000mL at 42 mL/hr, 1,000 mL, IV Infusion, ONCE, 1 dose, On Naheed 07/15/21 at 0715, Routine, DSU Pre-op [facility] cyclopent 1%-tropic 1%-phenyl 2.5%-ketor 0.5% (MYDRIATIC #5) ophthalmic solution syringe 0.5 mL 2020-07 13:00: 00 07-15 12:56 :00 No .5mL 0.5 mL, Left Eye, ONCE, 1 dose, On Naheed 07/15/21 at 0700, Routine, DSU Pre-op [facility] No known medications 2020-07 11:21: 11 No [facility] SYMBICORT 160-4.5 mcg/actuati on inhaler 2020-07 2- 00:00: 00 Yes [facility] glimepiride 4 mg tablet 2020-07 0-24 00:00: 00 Yes [facility] losartan-hy drochloroth iazide 100-12.5 mg per tablet 2020-07 0-24 00:00: 00 Yes [facility] carvediloL 12.5 mg tablet 2020-07 0-12 00:00: 00 Yes [facility] Vital Signs Vital Name Observation Time Observation Value Comments S sathya Systolic blood pressure 2021-08-12 14:47:00 149 mm[Hg] [facility] Diastolic blood pressure 2021-08-12 14:47:00 69 mm[Hg] [facility] Heart rate 2021-08-12 14:47:00 55 /min [facility] Respiratory rate 2021-08-12 14:47:00 11 /min [facility] Oxygen saturation in Arterial blood by Pulse oximetry 2021-08-12 14:47:00 100 /min [facility] Body temperature 2021-08-12 14:29:00 36.44 Meli [facility] Body height 2021-08-03 19:32:00 177.8 cm [facility] Body weight 2021-08-03 19:32:00 90.7 kg [facility] BMI 2021-08-03 19:32:00 28.69 kg/m2 [facility] Systolic blood pressure 2021-08-12 12:41:00 151 mm[Hg] [facility] Diastolic blood pressure 2021-08-12 12:41:00 62 mm[Hg] [facility] Heart rate 2021-08-12 12:41:00 65 /min [facility] Respiratory rate 2021-08-12 12:41:00 18 /min [facility] Oxygen saturation in Arterial blood by Pulse oximetry 2021-08-12 12:41:00 99 /min [facility] Body height 2021-08-03 19:32:00 177.8 cm [facility] Body weight 2021-08-03 19:32:00 90.7 kg [facility] BMI 2021-08-03 19:32:00 28.69 kg/m2 [facility] Systolic blood pressure 2021-07-15 14:41:00 144 mm[Hg] [facility] Diastolic blood pressure 2021-07-15 14:41:00 71 mm[Hg] [facility] Heart rate 2021-07-15 14:41:00 55 /min [facility] Respiratory rate 2021-07-15 14:40:00 19 /min [facility] Oxygen saturation in Arterial blood by Pulse oximetry 2021-07-15 14:40:00 99 /min [facility] Body temperature 2021-07-15 14:26:00 36.39 Meli [facility] Body height 2021-07-13 17:00:00 177.8 cm [facility] Body weight 2021-07-13 17:00:00 90.719 kg [facility] BMI 2021-07-13 17:00:00 28.70 kg/m2 [facility] Systolic blood pressure 2021-07-15 14:36:00 155 mm[Hg] [facility] Diastolic blood pressure 2021-07-15 14:36:00 77 mm[Hg] [facility] Heart rate 2021-07-15 14:36:00 56 /[facility] Oxygen saturation in Arterial blood by Pulse oximetry 2021-07-15 14:36:00 98 /min [facility] Respiratory rate 2021-07-15 14:34:00 43 /min [facility] Body temperature 2021-07-15 14:26:00 36.39 Meli [facility] Body height 2021-07-13 17:00:00 177.8 cm [facility] Body weight 2021-07-13 17:00:00 90.719 kg [facility] BMI 2021-07-13 17:00:00 28.70 kg/m2 [facility] Procedures Procedure Date / Time Performed Performing Clinician Source PHACOEMULSIFICATION OF CATARACT WITH INTRAOCULAR LENS IMPLANT 2021-08-12 13:54:00 Alycia Greene [facility] POCT GLUCOSE(AGE >30DAYS) 2021-08-12 12:55:00 Omar Gary [facility] POCT GLUCOSE(AGE >30DAYS) 2021-08-12 12:55:00 Omar Gary [facility] POCT GLUCOSE (AUTOMATED) 2021-08-12 12:50:00 JcAlycia hollis [facility] POCT GLUCOSE (AUTOMATED) 2021-08-12 12:50:00 Alycia Greene [facility] ASSIGNMENT OF BENEFITS 2021-08-05 19:15:30 Doctor Unassigned, [place] [facility] PHACOEMULSIFICATION OF CATARACT WITH INTRAOCULAR LENS IMPLANT 2021-07-15 13:48:00 Alycia Greene [facility] POCT GLUCOSE (AUTOMATED) 2021-07-15 13:04:00 JcAlycia [facility] POCT GLUCOSE (AUTOMATED) 2021-07-15 13:04:00 Alycia Greene [facility] PATIENT QUESTIONNAIRE 2021-07-15 06:01:00 Doctor Unassigned, [place] [facility] NO SHOW OR MISSED APPOINTMEN T POLICY ACKNOWLEDGEMENT 2021-07-09 21:25:51 Doctor Unassigned, [place] [facility] NO SHOW OR MISSED APPOINTMEN T POLICY ACKNOWLEDGEMENT 2021-07-09 21:25:51 Doctor Unassigned, [place] [facility] PATIENT FINANCIAL POLICY 2021-07-09 21:25:18 Doctor Unassigned, [place] [facility] PATIENT FINANCIAL POLICY 2021-07-09 21:25:18 Doctor Unassigned, [place] [facility] NOTICE OF BILLING PRACTICES FOR MEDICARE PATIENTS 2021-07-09 21:24:55 Doctor Unassigned, [place] [facility] NOTICE OF BILLING PRACTICES FOR MEDICARE PATIENTS 2021-07-09 21:24:55 Doctor Unassigned, [place] [facility] NOTICE OF PRIVACY PRACTICES 2021-07-09 21:24:37 Doctor Unassigned, [place] [facility] NOTICE OF PRIVACY PRACTICES 2021-07-09 21:24:37 Doctor Unassigned, [place] [facility] CONSENT/REFUSAL FOR DIAGNOSI S AND TREATMENT 2021-07-09 21:24:19 Doctor Unassigned, [place] [facility] CONSENT/REFUSAL FOR DIAGNOSI S AND TREATMENT 2021-07-09 21:24:19 Doctor Unassigned, [place] [facility] ASSIGNMENT OF BENEFITS 2021-07-09 21:24:01 Doctor Unassigned, [place] [facility] ASSIGNMENT OF BENEFITS 2021-07-09 21:24:01 Doctor Unassigned, [place] [facility] VACCINATIONS - CONSENTS, ELIGIBILITY, HISTORY 2021-05-23 05:01:00 Doctor Unassigned, [place] [facility] Encounters Start Date/Time End Date/Time Encounter Type Admission Type Attending [facility] Facility Care Department Encounter ID Source 2021-11-17 04:54:00 2021-11-17 04:54:00 Inpatient Dillon Mayes [facility] [id number] [facility] 2021-10-27 05:18:00 2021-10-27 05:18:00 Inpatient Dillon Mayes [facility] [id number] [facility] 2021-08-12 06:39:00 2021-08-12 08:59:00 Outpatient R ALYCIA GREENE [facility] OPH [id number] [facility] 2021-08-12 06:39:00 2021-08-12 08:59:00 Hospital Encounter Alycia Greene [facility] [id number] [id number] [id number] [facility] 2021-08-12 07:30:00 2021-08-12 08:05:[address] [facility] [id number] [id number] [id number] [id number] [facility] 2021-08-10 10:30:00 2021-08-10 10:45:00 Laboratory Only Only, Adc Test Alycai Greene [facility] [id number] [id number] [id number] [id number] [facility] 2021-08-10 10:30:00 2021-08-10 10:30:00 Outpatient R ALYCIA GREENE [facility] [id number] [facility] 2021-08-05 00:00:00 2021-08-05 00:00:00 Orders Only Doctor Unassigned, [place] [facility] [id number] 350.1.13.10 4.2.7.2.686 [id number] [facility] 2021-07-15 06:43:00 2021-07-15 08:41:00 Hospital Encounter Alycia Greene [facility] [id number] 350.1.13.10 [id number] [id number] [facility] 2021-07-15 06:43:00 2021-07-15 08:41:00 Outpatient R ALYCIA GREENE [facility] OPH [id number] [facility] 2021-07-15 08:00:00 2021-07-15 08:36:00 Surgery Jc [facility] [place] [id number] 350.1.13.10 4.2.7.2.686 [id number] [facility] 2021-07-15 00:00:00 2021-07-15 00:00:00 Orders Only Doctor Unassigned, [place] [facility] [id number] 350.1.13.10 4.2.7.2.686 [id number] [facility] 2021-07-09 15:28:55 2021-07-09 15:43:55 Tongue Stitcher Visit Pob, Adc Lab Main Jc, Alycia Sonny [facility] 1..840.114 350.1.13.10 4.2.7.2.686 [id number] [facility] 2021-07-09 12:00:00 2021-07-09 12:00:00 Outpatient ALYCIA BYERS [facility] [id number] [facility] 2021-07-08 15:15:00 2021-07-08 15:15:00 Outpatient ALYCIA BYERS [facility] [id number] [facility] 2021-05-23 00:00:00 2021-05-23 00:00:00 Orders Only Doctor Unassigned, [place] [facility] 1..840.114 350.1.13.10 4.2.7.2.686 [id number] [facility] Results Test Description Test Time Test Comments Results Result Co mments Source GLUCOSE [id number] 13:37:00* Test Item Value Reference Range Interpretation Comme [facility] GLUCOSE BEDSIDE (test code = GLUBED) 62 MG/DL 70-110 L Performed by cer tified invoicing machine operator at [facility] GLUCOSE [id number] 12:04:00* Test Item Value Reference Range Interpretation Comme [facility] GLUCOSE BEDSIDE (test code = GLUBED) 73 MG/DL 70-110 N Performed by cer tified invoicing machine operator at [facility] BASIC METABOLIC [id number] 14:52:00* Test Item Value Reference Range Interpretation Comme [facility] SODIUM (test code = NA) 141 mEq/L 134-147 N POTASSIUM (test code = K) 4.5 mEq/L 3.4-5.0 N CHLORIDE (test code = CL) 110 mEq/L 100-108 H CARBON DIOXIDE (test code = CO2) 23 mEq/l 21-33 N ANION GAP (test code = GAP) 12 0-20 N GLUCOSE (test code = GLU) 165 mg/dL 70-110 H BLOOD UREA NITROGEN (test code = BUN) 41 mg/dL 7-18 H GLOMERULAR FILTRATION RATE (test code = GFR) 35.0 70-80 L Units of measure = ml/min/1.73 m2 CREATININE (test code = CREAT) 1.9 mg/dL 0.6-1.3 H CALCIUM (test code = CA) 8.7 mg/dL 8.0-10.5 N PROTHROMBIN [id number] 14:46:00* Test Item Value Reference Range Interpretation Comme nts PROTHROMBIN TIME PATIENT (test code = PTP) 11.2 SECONDS 9.3-12.9 N INTERNATIONAL NORMAL RATIO (test code = INR) 1.0 0.8-1.2 N TARGET INR BY INDICATION Indication INR1. Prophylaxis of venous thrombosis 2.0 - 3.0 (orthopedic surgery), Prophylaxis of venous thrombosis (other than high-risk surgery), Treatment of Deep Vein Thrombosis/Pulmonary Embolism, Prevention of systemic embolism - Tissue heart valves, Acute Myocardial Infarction (to prevent systemic embolism), Valvular heart disease, Atrial Fibrillation, Bileaflet mechanical valve in aortic position.2. Mechanical prosthetic valves (high risk), 2.5 - 3.5 Presence of Lupus Anticoagulant or Antiphospholipid Antibodies, Prevention of systemic embolism - Acute Myocardial Infarction (to prevent recurrent infarct). CBC W/AUTO [id number] 14:34:00* Test Item Value Reference Range Interpretation Comme nts WHITE BLOOD CELL (test code = WBC) 7.3 x10 3/uL 4.5-11.0 N RED BLOOD CELL (test code = RBC) 3.36 x10 6/uL 4.00-5.60 L HEMOGLOBIN (test code = HGB) 10.1 g/dL 12.5-16.9 L HEMATOCRIT (test code = HCT) 31.9 % 37.5-50.7 L MEAN CELL VOLUME (test code = MCV) 94.9 fL 81.0-99.0 N MEAN CELL HGB (test code = MCH) 30.1 pg 27.0-33.0 N MEAN CELL HGB CONCETRATION (test code = MCHC) 31.7 g/dL 33.0-37.0 L RED CELL DISTRIBUTION WIDTH CV (test code = RDW) 13.3 % 11.5-14.5 N RED CELL DISTRIBUTION WIDTH SD (test code = RDW-SD) 46.8 fL 37.0-54.0 N PLATELET COUNT (test code = PLT) 228 x10 3/uL 150-400 N MEAN PLATELET VOLUME (test c ode = MPV) 10.4 fL 7.0-9.0 H NEUTROPHIL % (test code = NT%) 70.7 % 56.0-77.0 N IMMATURE GRANULOCYTE % (test code = IG%) 0.4 % 0.0-2.0 N LYMPHOCYTE % (test code = LY%) 16.0 % 14.0-32.0 N MONOCYTE % (test code = MO%) 6.6 % 4.8-9.0 N EOSINOPHIL % (test code = EO%) 5.6 % 0.3-3.7 H BASOPHIL % (test code = BA%) 0.7 % 0.0-2.0 N NUCLEATED RBC % (test code = NRBC%) 0.0 % 0-0 N NEUTROPHIL # (test code = NT#) 5.16 x10 3/uL 2.0-7.6 N IMMATURE GRANULOCYTE # (test code = IG#) 0.03 x10 3/uL 0.00-0.03 N LYMPHOCYTE # (test code = LY#) 1.17 x10 3/uL 1.0-3.8 N MONOCYTE # (test code = MO#) 0.48 x10 3/uL 0.1-0.8 N EOSINOPHIL # (test code = EO#) 0.41 x10 3/uL 0.0-0.2 H BASOPHIL # (test code = BA#) 0.05 x10 3/uL 0.0-0.2 N NUCLEATED RBC # (test code = NRBC#) 0.00 x10 3/uL 0.0-0.1 N MANUAL DIFF REQUIRED (test c ode = MDIFF) NO [id number] 10:07:00* Test Item Value Reference Range Interpretation Comme nts ACT-ISTAT (test code = ACTI) 249 SEC 74-137 H Performed by cer tified invoicing machine operator at [facility] GLUCOSE [id number] 08:04:00* Test Item Value Reference Range Interpretation Comme nts GLUCOSE BEDSIDE (test code = GLUBED) 164 MG/DL 70-110 H Performed by cer tified invoicing machine operator at [facility] BASIC METABOLIC [id number] 13:09:00* Test Item Value Reference Range Interpretation Comme nts SODIUM (test code = NA) 140 mEq/L 134-147 N POTASSIUM (test code = K) 4.6 mEq/L 3.4-5.0 N CHLORIDE (test code = CL) 108 mEq/L 100-108 N CARBON DIOXIDE (test code = CO2) 25 mEq/l 21-33 N ANION GAP (test code = GAP) 11 0-20 N GLUCOSE (test code = GLU) 208 mg/dL 70-110 H BLOOD UREA NITROGEN (test code = BUN) 31 mg/dL 7-18 H GLOMERULAR FILTRATION RATE (test code = GFR) 35.0 70-80 L Units of measure = ml/min/1.73 m2 CREATININE (test code = CREAT) 1.9 mg/dL 0.6-1.3 H CALCIUM (test code = CA) 8.8 mg/dL 8.0-10.5 N PROTHROMBIN [id number] 12:53:00* Test Item Value Reference Range Interpretation Comme nts PROTHROMBIN TIME PATIENT (test code = PTP) 11.3 SECONDS 9.3-12.9 N INTERNATIONAL NORMAL RATIO (test code = INR) 1.0 0.8-1.2 N TARGET INR BY INDICATION Indication INR1. Prophylaxis of venous thrombosis 2.0 - 3.0 (orthopedic surgery), Prophylaxis of venous thrombosis (other than high-risk surgery), Treatment of Deep Vein Thrombosis/Pulmonary Embolism, Prevention of systemic embolism - Tissue heart valves, Acute Myocardial Infarction (to prevent systemic embolism), Valvular heart disease, Atrial Fibrillation, Bileaflet mechanical valve in aortic position.2. Mechanical prosthetic valves (high risk), 2.5 - 3.5 Presence of Lupus Anticoagulant or Antiphospholipid Antibodies, Prevention of systemic embolism - Acute Myocardial Infarction (to prevent recurrent infarct). CBC W/AUTO [id number] 12:46:00* Test Item Value Reference Range Interpretation Comme nts WHITE BLOOD CELL (test code = WBC) 7.7 x10 3/uL 4.5-11.0 N RED BLOOD CELL (test code = RBC) 3.49 x10 6/uL 4.00-5.60 L HEMOGLOBIN (test code = HGB) 10.5 g/dL 12.5-16.9 L HEMATOCRIT (test code = HCT) 32.3 % 37.5-50.7 L MEAN CELL VOLUME (test code = MCV) 92.6 fL 81.0-99.0 N MEAN CELL HGB (test code = MCH) 30.1 pg 27.0-33.0 N MEAN CELL HGB CONCETRATION (test code = MCHC) 32.5 g/dL 33.0-37.0 L RED CELL DISTRIBUTION WIDTH CV (test code = RDW) 12.9 % 11.5-14.5 N RED CELL DISTRIBUTION WIDTH SD (test code = RDW-SD) 43.8 fL 37.0-54.0 N PLATELET COUNT (test code = PLT) 265 x10 3/uL 150-400 N MEAN PLATELET VOLUME (test c ode = MPV) 10.5 fL 7.0-9.0 H NEUTROPHIL % (test code = NT%) 71.7 % 56.0-77.0 N IMMATURE GRANULOCYTE % (test code = IG%) 1.0 % 0.0-2.0 N LYMPHOCYTE % (test code = LY%) 16.5 % 14.0-32.0 N MONOCYTE % (test code = MO%) 6.1 % 4.8-9.0 N EOSINOPHIL % (test code = EO%) 4.2 % 0.3-3.7 H BASOPHIL % (test code = BA%) 0.5 % 0.0-2.0 N NUCLEATED RBC % (test code = NRBC%) 0.0 % 0-0 N NEUTROPHIL # (test code = NT#) 5.52 x10 3/uL 2.0-7.6 N IMMATURE GRANULOCYTE # (test code = IG#) 0.08 x10 3/uL 0.00-0.03 H LYMPHOCYTE # (test code = LY#) 1.27 x10 3/uL 1.0-3.8 N MONOCYTE # (test code = MO#) 0.47 x10 3/uL 0.1-0.8 N EOSINOPHIL # (test code = EO#) 0.32 x10 3/uL 0.0-0.2 H BASOPHIL # (test code = BA#) 0.04 x10 3/uL 0.0-0.2 N NUCLEATED RBC # (test code = NRBC#) 0.00 x10 3/uL 0.0-0.1 N MANUAL DIFF REQUIRED (test c ode = MDIFF) NO - XR CHEST 2 [id number] 00:00:00 [facility] : 1950 Sex: M FAX:Long Davis MD [phone] Bode: St: PRE FAX: Dillon Felder MD [phone] Name: KRISHNA SAGASTUME [facility] : 1950 Age/S: 70/M [address] [place] [address] Unit #: [id number] Loc: [place] [address] Phys: Dillon Cano MD Acct: [id number] Dis Date: Status: PRE [facility] PHONE #: [phone] Exam Date: 10/25/2021 1310 FAX #: [phone] Reason: PREOP EXAMS: CPT CODE: [id number] XR CHEST 2 V 07745 PROCEDURE INFORMATION: Exam: XR Chest Exam date and time: 10/25/2021 12:54 PM Age: 70 years old Clinical indication: Pre-operative exam; Respiratory screening exam; Additional info: Preop TECHNIQUE:Imaging protocol: XR of the chest. Views: 2 views. PA and Lateral COMPARISON: No relevant prior studies available. FINDINGS: Lungs: No consolidation. Pleural spaces: No pleural effusion. Heart/Mediastinum: The heart and vascular markings are within limits of normal. Bones/joints: No gross acute findings. IMPRESSION: No acute cardiopulmonary findings at 1335 Reported and signed by: Dirk Rivera D.O. CC: Long Molina MD; Dillon Cano MD Technologist: RT Kody(Donald) Trnscrd Date/Time/By: 10/25/2021 (8706) : By: [email or web address] Orig Print D/T: S: 10/25/2021 (6435) PAGE 1 Signed [facility] GLUCOSE (AUTOMATED)2021-08-12 13:52:57* Test Item Value Reference Range Interpretation Comme nts POCT GLU (test code = 2832550288) 113 mg/dL 70-110 H Lab Interpretation (test cod e = 95964-8) Abnormal [facility] GLUCOSE (AUTOMATED)2021-08-12 13:52:57* Test Item Value Reference Range Interpretation Comme nts POCT GLU (test code = 6463148794) 113 mg/dL 70-110 H Lab Interpretation (test cod e = 66426-7) Abnormal [facility] [id number] 12:55:00* Test Item Value Reference Range Interpretation Comme nts POCT Glu (age>30days) (test code = 3342) 113 mg/dL 70-110 A Lab Interpretation (test cod e = 43251-1) Abnormal [facility] [id number] 12:55:00* Test Item Value Reference Range Interpretation Comme nts POCT Glu (age>30days) (test code = 3342) 113 mg/dL 70-110 A Lab Interpretation (test cod e = 39557-7) Abnormal [facility] GLUCOSE (AUTOMATED)2021-07-15 13:07:57* Test Item Value Reference Range Interpretation Comme nts POCT GLU (test code = 6190844414) 150 mg/dL 70-110 H Lab Interpretation (test cod e = 04227-3) Abnormal [facility] GLUCOSE (AUTOMATED)2021-07-15 13:07:57* Test Item Value Reference Range Interpretation Comme nts POCT GLU (test code = 9391796208) 150 mg/dL 70-110 H Lab Interpretation (test cod e = 05776-4) Abnormal [facility] Notes Date/Time Note Provider Source 2021-11-17 13:56:00 [id number] [place], [place] [address] PATIENT NAME: KRISHNA SAGASTUME ADMIT DATE: 11/17/21 ACCOUNT NO: [id number] ROOM NO: AGE: 70 REPORT TYPE: CARDIAC CATHETERIZATION REPORT SEX: M ADMITTING PHYSICIAN: ATTENDING PHYSICIAN:Dillon Cano MD PROCEDURE DATE: 11/17/2021 PROCEDURE PERFORMED: Selective left SFA and arpxh-ypx-uvyj peripheral angiogram. INDICATIONS: Known significant peripheral vascular disease with claudication and pain to the lower extremity. ACCESS: Right femoral artery, 6-Central African closed with Mynx closure device. COMPLICATIONS: None. BLEEDING: Less than 10 mL. TOTAL SEDATION TIME: 20 minutes. DESCRIPTION OF PROCEDURE: After risks, benefits, and alternatives were explained, the patient agreed to proceed and signed informed consent. The patient was brought into the cardiac catheterization laboratory, prepped and draped in usual sterile fashion and we accessed the right femoral artery using ultrasound guidance fluoroscopy and micropuncture kit. Placed 6-Central African sheath and took a crossover sheath in the distal aorta with a [place] Advantage wire, crossed and placed the wire into the SFA, then exchanged for a long 65 cm 6-Central African Destination sheath, placed it in the distal SFA and took a DSA angiogram of the vessels below the knee and then pulled the catheter up into the groin and took an angiogram of the left SFA that was worked on last week and then removed the sheath. A Mynx closure device was used with good hemostasis. FINDINGS: 1. Distal SFA is patent, status post recent angioplasty with a diffuse 10% to 20% stenosis in that flow was excellent. 2. The tibial trunk appears normal. 3. Posterior tibial artery is occluded; however, it fills distally from collaterals coming from the peroneal and the anterior tibial. 4. Anterior tibial artery with ostial 40% stenosis and mid 40% stenosis with excellent flow. 5. Peroneal artery is patent with mild 10% to 20% disease. CONCLUSION: 1. Mild cnazy-iyt-dlnw stenosis with a EDUCATION ADVISER of the posterior tibial; however, shows very well from the collaterals. 2. Patent left SFA. PATIENT NAME: KRISHNA SAGASTUME PLAN: Aggressive medical management and repeat arterial Doppler in about 6 months. Dictated By: Dillon Cano MD WT: CATH:NEDRA/SEDRICK/NTS Conf#: [id number]/DID#: [id number] Authenticated by Dillon Cano MD On 12/01/2021 09:19:15 AM at 0919 PATIENT NAME: KRISHNA SGAASTUME [facility] 2021-11-15 13:51:00 [id number] [place] [address] PATIENT NAME: KRISHNA SAGASTUME ADMIT DATE: ACCOUNT NO: [id number] ROOM NO: AGE: 70 REPORT TYPE: eELECTROCARDIOGRAM REPORT SEX: M ADMITTING PHYSICIAN: ATTENDING PHYSICIAN:Dillon Cano MD Order: [id number] Test Reason : PREOP Test Date/Time Stamp: MonNov 15 2021 13:51:57 Blood Pressure : / mmHG Vent. Rate : 062 BPM Atrial Rate : 062 BPM P-R Int : 160 ms QRS Dur : 084 ms QT Int : 402 ms P-R-T Axes : 065 070 036 degrees QTc Int : 408 ms Normal sinus rhythm Nonspecific ST and T wave abnormality Abnormal ECG PRE_OP Confirmed by DAVINA RICHARDS MD ([id number]) on 11/15/2021 4:16:11 PM Referred By: Dillno Cano Confirmed by:DAVINA RICHARDS MD at 1616 PATIENT NAME: KRISHNA SAGASTUME [facility] 2021-10-27 11:00:00 [phone] [place] [address] PATIENT NAME: KRISHNA SAGASTUME ADMIT DATE: 10/27/21 ACCOUNT NO: [id number] ROOM NO: AGE: 70 REPORT TYPE: CARDIAC CATHETERIZATION REPORT SEX: M ADMITTING PHYSICIAN: ATTENDING PHYSICIAN:Dillon Cano MD PROCEDURE DATE: 10/27/2021 PROCEDURE PERFORMED: CSI atherectomy of severe distal SFA stenosis followed by balloon angioplasty using 6 x 60 mm drug-coated balloon. INDICATIONS: Severe peripheral vascular disease with claudication. ACCESS: Right femoral artery, 6-Central African closed with Perclose. COMPLICATIONS: None. BLEEDING: Less than 10 mL. TOTAL SEDATION TIME: 50 minutes. DESCRIPTION OF PROCEDURE: After risks, benefits, and alternatives were explained, the patient agreed to proceed and signed informed consent. The patient was brought into cardiac catheterization laboratory, prepped and draped in sterile fashion. Then, we accessed the right femoral artery using ultrasound guidance, micropuncture kit, and placed 6-Central African [place] sheath and took a crossover catheter into the distal aorta with a [place] Advantage crossed over into the other side and placed the wire in the distal SFA, then exchanged for a 6-Central African short Destination sheath, placed on the proximal SFA. Angiogram was performed and then I took the microcatheter across the area of stenosis, confirmed being in the true lumen and exchanged for the Viper wire. CSI atherectomy at low, medium, and high speed was done, 2 runs at a low speed, one run at the medium speed and one run at the high speed. Subsequently, used a 6 x 60 mm drug-coated balloon, inflated for 2 minutes and then results afterwards were excellent with less than 10% residual stenosis and good flow. Minimal focal dissection was noted; however, it is non-flow limiting. Then, a full angiogram with runoff was done all the way to the foot, then removed the wire and the sheath and placed Perclose for closure with good hemostasis. FINDINGS: 1. Distal left SFA is heavily calcified with a 99% subtotal occlusion, status post successful CSI atherectomy and balloon angioplasty as above. 2. The tibial trunk: There is a distal 99% stenosis, heavily calcified and then the posterior tibial is patent all the way into the distal right above the ankle and there is a very short EDUCATION ADVISER and reconstitutes from collaterals. Anterior tibial also has a slow flow with diffuse disease that is not flow limiting; however, ostially there is significant disease. The peroneal artery also has multiple focal areas of 60% to 70% stenosis. PATIENT NAME: KRISHNA SAGASTUME CONCLUSION: 1. Severe left distal SFA stenosis, status post CSI atherectomy and balloon angioplasty as above that was successful. 2. Severe tibial trunk and posterior tibial stenosis. Plan for staged angioplasty due to chronic kidney disease, creatinine being 1.8 and the contrast used today was 38 mL. PLAN: 1. Aspirin and Plavix. 2. Bring back in about a month to intervene on the tibial trunk and posterior tibial artery. Dictated By: Dillon Cano MD WT: CATH:NEDRA/SEDRICK/TY Conf#: [id number]/DID#: [id number] Authenticated by Dillon Cano MD On 10/28/2021 02:25:21 PM at 0225 PATIENT NAME: JOSEY SAGASTUMEE [facility] 2021-10-25 12:00:00 [id number] [place] [address] PATIENT NAME: KRISHNA SAGASTUME ADMIT DATE: ACCOUNT NO: [id number] ROOM NO: AGE: 70 REPORT TYPE: eELECTROCARDIOGRAM REPORT SEX: M ADMITTING PHYSICIAN: ATTENDING PHYSICIAN:Dillon Cano MD Order: [id number] Test Reason : PREOP Test Date/Time Stamp: MonOct 25 2021 12:00:21 Blood Pressure : / mmHG Vent. Rate : 070 BPM Atrial Rate : 070 BPM P-R Int : 162 ms QRS Dur : 084 ms QT Int : 396 ms P-R-T Axes : 069 062 058 degrees QTc Int : 427 ms Normal sinus rhythm Normal ECG PRE_OP Confirmed by DAVINA RICHARDS MD ([id number]) on 10/25/2021 2:13:27 PM Referred By: Dillon Cano Confirmed by:DAVINA RICHARDS MD at 4943 PATIENT NAME: KRISNHA SAGASTUME [facility]
[2024-04-09] MEDS ORDERED: PANTOPRAZOLE 40 MG INJ ONE (13:43)
[2024-04-09] MEDS ORDERED: NA CHLORIDE 0.9% 500 ML ONE (13:44)
[2024-04-09] MEDS ORDERED: ONDANSETRON 4 MG/2 ML VIAL ONE (13:47)
[2024-04-09 14:25] LABS: Absolute Eosinophils 0.1 K/uL (0-0.5); Absolute Lymphocytes (CBC) 1.3 K/uL (0.7-4.9); Absolute Monocytes 0.6 K/uL (0.1-1.3); Absolute Neutrophil 8.5 K/uL (1.8-8.0); Basophils % 0.3 % (0-1.3); Hematocrit 21.9 % (39.6-49.0); Hemoglobin 7.5 g/dL (13.6-17.9); Lymphocytes % 12.7 % (15.3-44.8); MCH 31.4 pg (27.0-35.0); MCHC 34.1 g/dL (32.0-36.0); MCV 91.8 fL (80-100); MPV 7.6 fL (7.6-11.3); Monocytes % 5.3 % (3.3-12.3); Neutrophils % 80.7 % (41.7-73.7); Nucleated Red Blood Cells % 0.1 % (0-0); Platelets 285 thou/uL (152-406); RBC Red Blood Cell Count 2.38 M/uL (4.33-5.43); Red Cell Distribution Width 14.2 % (12.1-15.2); Specific Gravity 1.014 (1.005-1.030); Sqamous Epithelial None Seen /HPF (None Seen); Urine Bacteria None Seen /HPF (<20); Urine Bilirubin NEGATIVE (Negative); Urine Blood Negative (Negative); Urine Clarity Clear (Clear); Urine Color Light-Yellow (Yellow); Urine Culture Reflex Order NOT NEEDED; Urine Glucose 4+ (Negative); Urine Ketones NEGATIVE (Negative); Urine Microscopic Reflex YN ORDER UMIC; Urine Mucus Slight /HPF (None Seen); Urine Nitrite NEGATIVE (Negative); Urine Protein TRACE (Negative); Urine RBC <5 /HPF (None Seen); Urine Urobilinogen Normal (Normal); Urine WBC <5 /HPF (<5); Urine pH 5.5 (5.0-7.0)
[2024-04-09 14:44] LABS: Albumin 3.4 g/dL (3.4-5.0); Anion Gap 12.4 mEq/L (5.0-15.0); Bilirubin Total 0.2 mg/dL (0.2-1.0); Globulin 3.5 g/dL (2.3-3.5); Potassium 4.4 mEq/L (3.5-5.1); Protein, Total 6.9 g/dL (6.4-8.2)
--- NOTE | 2024-04-09 15:23 | RAD REPORT ---
EXAM DESCRIPTION: CT - Abdomen Pelvis Wo Contrast - 04/09/2024 3:04 pm CLINICAL HISTORY: Abdominal pain. ABD PAIN COMPARISON: No comparisons TECHNIQUE: CT imaging of the abdomen and pelvis was performed without contrast. Solid organ, bowel a nd vascular assessment is limited due to lack of IV and oral contrast. All CT scans are performed using dose optimization technique as appropriate and may include automated exposure control or mA/KV adjustment according to patient size. FINDINGS: The lower lung pompa are clear.Small gallstone is present in the gallbladder neck. The liver, spleen, pancreas, adrenal glands and kidneys are within normal limits for a limited non-co ntrast examination.Benign cysts are present bilaterally. No bowel obstruction, free air, free fluid or abscess. Thickening is seen of the sigmoid colon in the left lower quadrant. Sigmoid diverticulosis coli without diverticulitis. Mild lumbar degenerative changes. IMPRESSION: Diverticulosis coli with mild wall thickening the left lower quadrant sigmoid colon. No definitive diverticulitis seen. Followup colonoscopy may be useful if not recently performed to evalu ate this region. Cholelithiasis. A limited non-contrast examination was performed as detailed.
--- NOTE | 2024-04-09 15:46 | ER ---
Nurse's Notes [facility] Name: Solomon Murdock Age: 73 yrs Sex: Male : 1950 Arrival Date: 04/09/2024 Time: 13:05 Bed 5 Private MD: Diagnosis: GI Bleed/ Gastrointestinal hemorrhage, unspecified Presentation: 04/09 13:26 Chief complaint: Patient states: Black tarry stools, "black" vomit onset Monday. PT was cm10 diagnosed with an upper GI bleed on 03/29. Pt also reports that he is also feeling weak, light headed and decreased energy. Coronavirus screen: Client denies travel out of the [place] in the last 14 days. At this time, the client does not indicate any symptoms associated with coronavirus-19. Ebola Screen: Patient denies travel to an Ebola-affected area in the 21 days before illness onset. No symptoms or risks identified at this time. Initial Sepsis Screen: Does the patient meet any 2 criteria? No. Patient's initial sepsis screen is negative. Does the patient have a suspected source of infection? No. Patient's initial sepsis screen is negative. Risk Assessment: Do you want to hurt yourself or someone else? Patient reports no desire to harm self or others. Onset of symptoms was April 09, 2024. 13:26 Method Of Arrival: Ambulatory 10 13:26 Acuity: CHARMAINE 3 cm10 Triage Assessment: 13:37 General: Appears in no apparent distress. comfortable, Behavior is calm, cooperative. cm10 Neuro: No deficits noted. Level of Consciousness is awake, alert, obeys commands, Oriented to person, place, time, situation, Appropriate for age. Respiratory: No deficits noted. Airway is patent Respiratory effort is even, unlabored, Respiratory pattern is regular, symmetrical. Historical: - Allergies: 13:30 NKA; cm10 - Home Meds: 13:30 losartan-hydrochlorothiazide 100-12.5 mg oral tablet [Active]; budesonide-formoterol cm10 160-4.5 mcg/actuation inhalation HFA Aerosol Inhaler 2 inhalations 2 times per day [Active]; dexlansoprazole 60 mg oral capsule,delayed release,biphasic 1 cap daily [Active]; PreserVision AREDS-2 250-90-40-1 mg oral capsule [Active]; Farxiga 10 mg oral tablet 1 tab daily [Active]; Toujeo Max U-300 SoloStar 300 unit/mL (3 mL) subcutaneous Insulin Pen 45 units daily [Active]; Mounjaro 5 mg/0.5 mL subcutaneous Pen Injector every week [Active]; atorvastatin 40 mg oral tablet 1 tab daily [Active]; carvedilol 25 mg oral tablet 1 tab 2 times per day [Active]; Sapna Aspirin 325 mg Oral tab 1 tab once daily [Active]; aspirin 81 mg oral tablet, delayed release (enteric coated) 1 tab daily [Active]; amlodipine 10 mg tab 1 tab once daily [Active]; gemfibrozil 600 mg oral tablet 1 tab 2 times per day [Active]; ferrous sulfate 325 mg (65 mg iron) Oral tablet 1 tab daily [Active]; glimepiride 4 mg Oral tab 1 tab twice a day [Active]; gabapentin 100 mg oral capsule 1 cap 2 times per day [Active]; sertraline 50 mg oral tablet 1 tab daily [Active]; - PMHx: 13:30 COPD; asbestosis; CVA; Hypertension; Diabetes - NIDDM; Sleep Apnea; GI bleed cm10 (Appendectomy); - PSHx: 13:30 back surgery; Appendectomy; cm10 - Immunization history:: Adult Immunizations up to date. - Infectious Disease History:: Denies. - Social history:: Smoking status: Patient denies any tobacco usage or history of. Screenin:42 [facility] ED Fall Risk Assessment (Adult) History of falling in the last 3 months, dd2 including since admission No falls in past 3 months (0 pts) Confusion or Disorientation No (0 pts) Intoxicated or Sedated No (0 pts) Impaired Gait No (0 pts) Mobility Assist Device Used No (0 pt) Altered Elimination No (0 pt) Score/Fall Risk Level 0 - 2 = Low Risk Oriented to surroundings, Maintained a safe environment, Educated pt \\T\\ family on fall prevention, incl call for assistance when getting out of bed, Assessed \\T\\ reinforced patient's understanding of fall precautions, Hourly rounding (assess needs \\T\\ fall precautionary measures) done. Abuse screen: Denies threats or abuse. Nutritional screening: No deficits noted. Tuberculosis screening: No symptoms or risk factors identified. Assessment: 14:42 General: Appears in no apparent distress. Behavior is calm, cooperative, appropriate dd2 for age. Pain: Complains of pain in epigastric area Pain currently is 5 out of 10 on a pain scale. Quality of pain is described as gnawing. Neuro: Level of Consciousness is awake, alert, obeys commands, Oriented to person, place, time, situation, Appropriate for age. Cardiovascular: No deficits noted. Denies chest pain. Respiratory: No deficits noted. Airway is patent Respiratory effort is even, unlabored, Respiratory pattern is regular, symmetrical. GI: Abdomen is non-distended, Bowel sounds present X 4 quads. Abdomen is tender to palpation in umbilical area Reports epigastric pain, nausea, vomiting. : No deficits noted. No signs and/or symptoms were reported regarding the genitourinary system. EENT: No deficits noted. No signs and/or symptoms were reported regarding the EENT system. Derm: No deficits noted. No signs and/or symptoms reported regarding the dermatologic system. Musculoskeletal: No deficits noted. No signs and/or symptoms reported regarding the musculoskeletal system. Range of motion: intact in all extremities. 18:17 Reassessment: report called to SABRINA Mason [facility]. dd2 Vital Signs: 13:26 BP 140 / 77; Pulse 75; Resp 16; Temp 97.5; Pulse Ox 100% on R/A; Weight 82.1 kg; Height cm10 5 ft. 10 in. ; Pain 0/10; 14:42 BP 138 / 75; Pulse 79; Resp 17; Pulse Ox 97% ; dd2 16:26 BP 132 / 64; Pulse 72; Resp 17; Pulse Ox 97% ; dd2 17:53 BP 106 / 60; Pulse 70; Resp 16; Pulse Ox 100% ; dd2 13:26 Body Mass Index 25.97 (82.10 kg, 177.8 cm) cm10 13:26 Pain Scale: Adult cm10 ED Course: 13:07 Patient arrived in ED. im 13:14 Sophie Rubio FNP-C is PHCP. kb 13:14 Loyd Burnham MD is Attending Physician. kb 13:30 Triage completed. cm10 13:37 Arm band placed on Patient placed in an exam room, on a stretcher. cm10 14:15 No provider procedures requiring assistance completed. Initial lab(s) drawn, by ED ko1 staff, sent to lab. Urine collected: clean catch specimen, clear. Inserted saline lock: 20 gauge in right antecubital area, using aseptic technique. Blood collected. Flushed with 10 mL NS. 14:16 Patient has correct armband on for positive identification. Placed in gown. Bed in low ko1 position. Call light in reach. Side rails up X2. Provided Education on: labs. Client placed on continuous cardiac and pulse oximetry monitoring. NIBP monitoring applied. commodities manager on. Door closed. Noise minimized. Lights dimmed. Warm blanket given. Pillow given. Assisted to bathroom. 14:16 CBC with Diff Sent. ko1 14:16 CMP Sent. ko1 14:16 Lipase Sent. ko1 14:16 Urinalysis w/ reflexes Sent. ko1 15:06 Abdomen In Process Unspecified. EDMS 15:46 Sharyn Molina MD is Hospitalizing Provider. kb 16:02 GERARDO ZUNIGA RN is Primary Nurse. dd2 16:43 Type And Screen Sent. dd2 17:[address] [facility]. bd 17:34 pt accepted in transfer to [facility] rm [address] Collins admin approval given by cecilia Vanegas. 18:22 pt to be transported by EMS. bd 19:03 Patient transferred, IV remains in place. dd2 Administered Medications: 14:13 Drug: NS 0.9% IV 500 ml IV at bolus once Route: IV; Rate: bolus; Site: right ko1 antecubital; 14:28 Follow up: Response: No adverse reaction dd2 14:43 Follow up: IV Status: Completed infusion; IV Intake: 500ml dd2 14:14 Drug: Ondansetron IVP 4 mg IVP once; over 2 minutes Route: IVP; Site: right antecubital;ko1 14:29 Follow up: Response: No adverse reaction dd2 14:14 Drug: Pantoprazole IVP 40 mg IVP once Route: IVP; Site: right antecubital; ko1 14:29 Follow up: Response: No adverse reaction dd2 17:30 Drug: Pantoprazole IV 8 mg/hr IV at 25 ml/hr continuous; (Standard dilution is 80 mg in dd2 250 mL NS) Route: IV; Rate: 25 ml/hr; Site: right antecubital; 17:45 Follow up: Response: No adverse reaction dd2 Medication: 14:16 VIS not applicable for this client. ko1 Intake: 14:43 IV: 500ml; Total: 500ml. dd2 Outcome: 15:46 Decision to Hospitalize by Provider. kb 17:28 ER care complete, transfer ordered by MD. kb 19:03 Transferred by ground EMS to [facility], [facility], Transfer form completed. dd2 19:03 Condition: stable 19:03 Instructed on the need for transfer, 19:04 Patient left the ED. dd2 Signatures: Dispatcher [employer] EDMS Sophie Rubio, PITCH GATHERER-C PITCH GATHERER-Ckb Sharyn Kim Kathy, RN RN ko1 Yue Clay Clarissa, SABRINA RN cm10 GERARDO ZUNIGA RN RN dd2
--- NOTE | 2024-04-09 15:46 | EDPHYS ---
Physician Documentation [facility] Name: Solomon Murdock Age: 73 yrs Sex: Male : 1950 Arrival Date: 04/09/2024 Time: 13:05 Bed 5 Private MD: FABIOLA Physician Loyd Burnham HPI: 04/09 16:00 This 73 yrs old Male presents to ER via Ambulatory with complaints of General Weakness, kb Black/Tarry Stools, Vomiting. 16:00 Pt is a 73 year old male who presents for black/tarry stools and nausea for 5 days. kb States he had vomiting on as well, but not since then. States he took his last dose on on Monday so he isn't sure if the vomiting was due to the shot or not. Presents today for fatigue, weakness. States he has not seen any bright red blood. Recently had Upper GI done by Dr Jarrell on 03/29/24 in which he had an area of bleeding cauterized. Reports epigastric pain. Historical: - Allergies: 13:30 NKA; cm10 - Home Meds: 13:30 losartan-hydrochlorothiazide 100-12.5 mg oral tablet [Active]; budesonide-formoterol cm10 160-4.5 mcg/actuation inhalation HFA Aerosol Inhaler 2 inhalations 2 times per day [Active]; dexlansoprazole 60 mg oral capsule,delayed release,biphasic 1 cap daily [Active]; PreserVision AREDS-2 250-90-40-1 mg oral capsule [Active]; Farxiga 10 mg oral tablet 1 tab daily [Active]; Toujeo Max U-300 SoloStar 300 unit/mL (3 mL) subcutaneous Insulin Pen 45 units daily [Active]; Mounjaro 5 mg/0.5 mL subcutaneous Pen Injector every week [Active]; atorvastatin 40 mg oral tablet 1 tab daily [Active]; carvedilol 25 mg oral tablet 1 tab 2 times per day [Active]; Sapna Aspirin 325 mg Oral tab 1 tab once daily [Active]; aspirin 81 mg oral tablet, delayed release (enteric coated) 1 tab daily [Active]; amlodipine 10 mg tab 1 tab once daily [Active]; gemfibrozil 600 mg oral tablet 1 tab 2 times per day [Active]; ferrous sulfate 325 mg (65 mg iron) Oral tablet 1 tab daily [Active]; glimepiride 4 mg Oral tab 1 tab twice a day [Active]; gabapentin 100 mg oral capsule 1 cap 2 times per day [Active]; sertraline 50 mg oral tablet 1 tab daily [Active]; - PMHx: 13:30 COPD; asbestosis; CVA; Hypertension; Diabetes - NIDDM; Sleep Apnea; GI bleed cm10 (Appendectomy); - PSHx: 13:30 back surgery; Appendectomy; cm10 - Immunization history:: Adult Immunizations up to date. - Infectious Disease History:: Denies. - Social history:: Smoking status: Patient denies any tobacco usage or history of. ROS: 15:59 Constitutional: As per HPI kb Exam: 15:59 Constitutional: This is a well developed, well nourished patient who is awake, alert, kb and in no acute distress. Head/Face: Normocephalic, atraumatic. ENT: Moist Mucous membranes Cardiovascular: Regular rate Respiratory: Respirations even and unlabored. No increased work of breathing. Talking in full sentences Back: No spinal tenderness. No costovertebral tenderness. Full range of motion. Skin: Warm, dry with normal turgor. Normal color. MS/ Extremity: Pulses equal, no cyanosis. Neurovascular intact. Full, normal range of motion. Neuro: Awake and alert, GCS 15, oriented to person, place, time, and situation. Moves all extremities. Normal gait. 15:59 Abdomen/GI: Inspection: abdomen appears normal, Bowel sounds: normal, Palpation: soft, in all quadrants, mild abdominal tenderness, in the epigastric area, Vital Signs: 13:26 BP 140 / 77; Pulse 75; Resp 16; Temp 97.5; Pulse Ox 100% on R/A; Weight 82.1 kg; Height cm10 5 ft. 10 in. ; Pain 0/10; 14:42 BP 138 / 75; Pulse 79; Resp 17; Pulse Ox 97% ; dd2 16:26 BP 132 / 64; Pulse 72; Resp 17; Pulse Ox 97% ; dd2 17:53 BP 106 / 60; Pulse 70; Resp 16; Pulse Ox 100% ; dd2 13:26 Body Mass Index 25.97 (82.10 kg, 177.8 cm) cm10 13:26 Pain Scale: Adult cm10 MDM: 13:14 Patient medically screened. kb 15:59 Differential diagnosis: gi bleed, intraabdominal infection. Data reviewed: vital signs, kb nurses notes. Consideration of Admission/Observation Patient was admitted/placed on observation. Escalation of care including admission/observation considered. Management of patient was discussed with the following: Sr. Strategic Sourcing Manager: Dr Griffiths accepts pt for consult. Primary Care Provider: Dr Molina accepts pt for inpatient admission. Wants H\T\H Q 6 hours, protonix drip, clear liquid diet now until Midnight then NPO. Transfuse 2 units if hgb drops below 7.0. Historians other than the Patient: Spouse/Significant Other: . Counseling: I had a detailed discussion with the patient and/or guardian regarding the historical points, exam findings, and any diagnostic results supporting the discharge/admit diagnosis, lab results, radiology results, the need for further work-up and treatment in the hospital. 16:04 ED course: Dr Griffiths here to evaluate pt at this time. kb 16:46 ED course: After reviewing pt's recent endoscopy, Dr Griffiths recommends transfer for further testing that cannot be completed at this facility. Dr Griffiths spoke with Dr Mike Rivera, GI at [facility] who accepts pt for transfer. . 17:26 Management of patient was discussed with the following: Dr Collins, hospitalist at [facility], accepts pt for transfer. 04/09 13:32 Order name: CBC with Diff; Complete Time: 14:37 kb 04/09 13:32 Order name: CMP; Complete Time: 14:56 04/09 13:32 Order name: Lipase; Complete Time: 14:56 kb 04/09 13:32 Order name: Urinalysis w/ reflexes; Complete Time: 14:33 kb 04/09 15:53 Order name: Type And Screen 04/09 17:37 Order name: ABO/RH no charge; Complete Time: 17:47 EDMS 04/09 14:58 Order name: Abdomen ; Complete Time: 15:29 EDMS 04/09 13:32 Order name: IV Saline Lock; Complete Time: 14:14 kb 04/09 13:32 Order name: Labs collected and sent; Complete Time: 14:14 kb Administered Medications: 14:13 Drug: NS 0.9% IV 500 ml IV at bolus once Route: IV; Rate: bolus; Site: right ko1 antecubital; 14:28 Follow up: Response: No adverse reaction dd2 14:43 Follow up: IV Status: Completed infusion; IV Intake: 500ml dd2 14:14 Drug: Ondansetron IVP 4 mg IVP once; over 2 minutes Route: IVP; Site: right antecubital;ko1 14:29 Follow up: Response: No adverse reaction dd2 14:14 Drug: Pantoprazole IVP 40 mg IVP once Route: IVP; Site: right antecubital; ko1 14:29 Follow up: Response: No adverse reaction dd2 17:30 Drug: Pantoprazole IV 8 mg/hr IV at 25 ml/hr continuous; (Standard dilution is 80 mg in dd2 250 mL NS) Route: IV; Rate: 25 ml/hr; Site: right antecubital; 17:45 Follow up: Response: No adverse reaction dd2 Disposition Summary: 04/09/24 17:28 Transfer Ordered Notes: Transfer Location: [facility] kb Reason: Higher level of care kb Condition: Stable(04/09/24 17:28) kb Problem: new(04/09/24 17:28) kb Symptoms: are unchanged(04/09/24 17:28) kb Accepting Physician: Dr Collins(04/09/24 19:04) dd2 Diagnosis - GI Bleed/ Gastrointestinal hemorrhage, unspecified(04/09/24 17:28) kb Forms: - Medication Reconciliation Form kb - SBAR form kb Addendum: 04/13/2024 15:44 Co-signature as Attending Physician, Loyd Burnham MD I agree with the assessment and c mena plan of care. Signatures: Dispatcher [employer] EDSophie Jones, PROSPECT MANAGER-C PROSPECT MANAGER-Ckb Loyd Burnham MD MD cha Oliver, Kathy RN RN ko1 Katie Morgan RN RN cm10 GERARDO ZUNIGA RN RN dd2 Corrections: (The following items were deleted from the chart) 04/09 14:58 13:32 Abdomen Pelvis W Con+CT.RAD.BRZ ordered. EDMS EDMS 15:54 15:54 TYPE AND SCREEN+BB.LAB.BRZ ordered. EDMS EDMS 16:04 15:59 Management of patient was discussed with the following: Sr. Strategic Sourcing Manager: Dr Aye kinsey accepts pt for consult. Primary Care Provider: Dr Molina accepts pt for inpatient admission. kb : 15:46 Inpatient Admission kb kb 17: 15:46 Sharyn Molina kb kb 17: 15:46 Telemetry/MedSurg (Inpatient) kb kb : 15:46 Stable kb kb 17: 15:46 new kb kb : 15:46 are unchanged kb kb 17: 15:46 Standard kb kb 17: 15:46 kb kb 17: 15:46 GI Bleed/ Gastrointestinal hemorrhage, unspecified kb kb 19:04 17:28 Dr Collins kb dd2
[2024-04-09] MEDS ORDERED: PANTOPRAZOLE INJ 80 MG in NA CHLORIDE 0.9% 250 ML IV SCH (16:37)
[2024-04-09 19:51] VITALS: TEMP 97.5
[2024-04-09 19:58] VITALS: BP 106/60; O2SAT 100
== END 2024-04-09 19:04 | disposition short-term general hospital (02) ==
LOC: ER 13:05
DX: K92.2 Gastrointestinal hemorrhage, unspecified (principal); R10.13 Epigastric pain; R53.1 Weakness; E11.9 Type 2 diabetes mellitus without complications; I10 Essential (primary) hypertension; J44.9 Chronic obstructive pulmonary disease, unspecified
CPT/HCPCS: 85025; 81001; 36415; 86900; 86850; 86901; 83690; 80053; 74176; 96375; 96374; 99285; J2470 ×2; J2405; J7050; J7040

== ENCOUNTER 2024-06-22 13:00 | Emergency (ER) | payer OTHER ==
[2024-06-22 13:56] LABS: SARS-CoV-2 Antigen CONTROL BLUE LINE VIS/BG OK; SARS-CoV-2 Antigen Rapid Res Negative (Negative)
[2024-06-22] MEDS ORDERED: ALBUTEROL 2.5 MG/3 ML NEB SOL ONE (15:10)
[2024-06-22] MEDS ORDERED: IPRATROPIUM BROM 0.5MG/2.5ML ONE (15:10)
--- NOTE | 2024-06-22 15:26 | RAD REPORT ---
EXAMINATION: ONE VIEW CHEST XR CLINICAL INDICATION: Male, 73 years old.,CONGESTION TECHNIQUE: Frontal chest projection is submitted. Examination is limited by patient positioning and t echnique. COMPARISON: 10/13/2021 FINDINGS: The lungs are well inflated and clear. No pneumothorax or sizable effusion. The heart is normal in s ize. Mediastinal contours are unremarkable. IMPRESSION: No acute intrathoracic abnormalities.
--- NOTE | 2024-06-22 16:03 | EDPHYS ---
Physician Documentation [facility] Name: Solomon Murdock Age: 73 yrs Sex: Male : 1950 Arrival Date: 06/22/2024 Time: 13:00 Bed DX3 Private MD: ED Physician Alexey Castellano HPI: 06/22 15:57 This 73 yrs old Male presents to ER via Ambulatory with complaints of Flu Symptoms - bo1 x1wk. 15:57 SOB and congestion x 1 week. Onset: The symptoms/episode began/occurred gradually, 1 bo1 week(s) ago. Severity of symptoms: At their worst the symptoms were mild in the emergency department the symptoms are unchanged. Hx of COPD and tob abuse - ongoing. Pt did not use his Symbicort in the past 2 days. Historical: - Allergies: 13:31 NKA; cm10 - Home Meds: 13:31 amlodipine 10 mg tab 1 tab once daily [Active]; aspirin 81 mg Oral tablet 1 tab daily cm10 [Active]; atorvastatin 40 mg Oral tablet 1 tab daily [Active]; Sapna Aspirin 325 mg Oral tab 1 tab once daily [Active]; budesonide-formoterol 160-4.5 mcg/actuation inhalation HFA Aerosol Inhaler 2 inhalations 2 times per day [Active]; carvedilol 25 mg Oral tablet 1 tab 2 times per day [Active]; dexlansoprazole 60 mg Oral capsule 1 cap daily [Active]; Farxiga 10 mg Oral tablet 1 tab daily [Active]; ferrous sulfate 325 mg (65 mg iron) Oral tablet 1 tab daily [Active]; gabapentin 100 mg Oral capsule 1 cap 2 times per day [Active]; gemfibrozil 600 mg Oral tablet 1 tab 2 times per day [Active]; losartan-hydrochlorothiazide 100-12.5 mg Oral tablet [Active]; Mounjaro 5 mg/0.5 mL subcutaneous Pen Injector every week [Active]; PreserVision AREDS-2 250-90-40-1 mg Oral capsule [Active]; sertraline 50 mg Oral tablet 1 tab daily [Active]; Toujeo Max U-300 SoloStar 300 unit/mL (3 mL) subcutaneous Insulin Pen 45 units daily [Active]; - PMHx: 13:31 asbestosis; COPD; CVA; Diabetes - NIDDM; GI Bleed (Appendectomy); Hypertension; Sleep cm10 Apnea; - PSHx: 13:31 Appendectomy; back surgery; cm10 - Immunization history:: Adult Immunizations up to date. - Infectious Disease History:: Denies. - Social history:: Smoking status: Patient denies any tobacco usage or history of. ROS: 15:58 Constitutional: Negative for fever, chills, and weight loss bo1 15:58 Neck: Negative for pain at rest, 15:58 Cardiovascular: Negative for chest pain, 15:58 Respiratory: Positive for cough, shortness of breath, White sputum, no blood, Negative for dyspnea on exertion, wheezing, 15:58 Abdomen/GI: Negative for abdominal pain, nausea and vomiting, 15:58 MS/extremity: Negative for erythema, pain, swelling, warmth, 15:58 Skin: Negative for rash, 15:58 All other systems are negative, Exam: 15:59 Constitutional: This is a well developed, well nourished patient who is awake, alert, bo1 and in no acute distress. 15:59 Head/face: Exam is negative for acute changes, 15:59 ENT: Exam is negative for External ear(s): are unremarkable, TM's: are normal, Posterior pharynx: is normal, no acute changes, 15:59 Neck: External neck: is normal, no acute changes, 15:59 Cardiovascular: Rate: normal, Rhythm: regular, Pulses: no pulse deficits are appreciated, 15:59 Respiratory: the patient does not display signs of respiratory distress, Respirations: normal, no acute changes, Breath sounds: decreased breath sounds, rhonchi, 15:59 Musculoskeletal/extremity: DVT Exam: no pain, no swelling, no tenderness, negative Homans' sign noted on exam, 15:59 Skin: no rash present. 15:59 Neuro: Orientation: is normal, appropriate for stated age, Mentation: is normal, appropriate for stated age, Vital Signs: 13:30 BP 126 / 68; Pulse 77; Resp 16; Temp 97.3(TE); Pulse Ox 96% on R/A; Weight 80.29 kg; cm10 Height 5 ft. 10 in. ; Pain 1/10; 13:30 Body Mass Index 25.40 (80.29 kg, 177.8 cm) cm10 13:30 Pain Scale: Adult cm10 MDM: 13:32 Medical Screening Exam initiated bo1 16:01 Differential Diagnosis COPD exacerbation, bronchitis. Data reviewed: vital signs, lab bo1 test result(s), radiologic studies, plain films. 06/22 13:28 Order name: Influenza Screen (a \T\ B); Complete Time: 14:14 cm10 06/22 13:28 Order name: SARS RAPID; Complete Time: 14:14 cm10 06/22 13:33 Order name: Chest Single View XRAY; Complete Time: 15:35 cm10 Administered Medications: 15:15 Drug: DuoNeb Nebulize (3:1) (2.5 mg - 0.5 mg) 3 ml Nebulizer once Route: Nebulizer; 16:18 Follow up: Response: No adverse reaction hb Disposition Summary: 06/22/24 16:02 Discharge Ordered Notes: Location: Home bo1 Problem: new bo1 Symptoms: have improved bo1 Condition: Stable bo1 Diagnosis - Acute bronchitis, unspecified bo1 - COPD/ Chronic obstructive pulmonary disease with (acute) exacerbation bo1 Followup: bo1 - With: Private Physician - When: Upon discharge from the Emergency Department - Reason: Recheck today's complaints, Continuance of care Discharge Instructions: - Discharge Summary Sheet bo1 - Acute Bronchitis, Adult bo1 - Chronic Obstructive Pulmonary Disease bo1 Forms: - Medication Reconciliation Form bo1 - Antibiotic Education bo1 - Prescription Opioid Use bo1 - Patient Portal Instructions bo1 - Leadership Thank You Letter bo1 Prescriptions: - azithromycin 250 mg Oral tablet - take 2 tablet ORAL route daily for 7 days; 14 tablet; Refills: 0, Product bo1 Selection Permitted - ipratropium-albuterol 0.5 mg-3 mg(2.5 mg base)/3 mL Inhalation Solution for Nebulization - nebulize 3 milliliter INHALATION route every 4 hours as needed for shortness of bo1 breath; until breathing returns to target peak flow/parameters; 30 unit; Refills: 0, Product Selection Permitted - Tessalon Perles 100 mg Oral Capsule - take 1 capsule ORAL route every 8 hours As needed; 15 capsule; Refills: 0, bo1 Product Selection Permitted Signatures: Dispatcher [employer] Janae Busby RN RN Katie Morgan RN RN cm10 Alexey Castellano MD MD bo1 Corrections: (The following items were deleted from the chart) 13:28 13:28 Influenza Screen (A \T\ B)+BA.LAB.BRZ ordered. EDMS EDMS 13:28 SARS-COV-2 Antigen Rapid+I.LAB.BRZ ordered. EDMS EDMS : 13:31 Home Meds: glimepiride 4 mg Oral tab 1 tab twice a day; cm10 cm10
--- NOTE | 2024-06-22 16:03 | ER ---
Nurse's Notes [facility] Name: Solomon Murdock Age: 73 yrs Sex: Male : 1950 Arrival Date: 06/22/2024 Time: 13:00 Bed DX3 Private MD: Diagnosis: Acute bronchitis, unspecified;COPD/ Chronic obstructive pulmonary disease with (acute) exacerbation Presentation: 06/22 13:30 Chief complaint: Patient states: Cough, congestion, and diarrhea onset 1 week ago. pt cm10 reports the diarrhea was only 1 day. Coronavirus screen: Client denies travel out of the [place] in the last 14 days. Ebola Screen: Patient denies travel to an Ebola-affected area in the 21 days before illness onset. No symptoms or risks identified at this time. Initial Sepsis Screen: Does the patient meet any 2 criteria? No. Patient's initial sepsis screen is negative. Does the patient have a suspected source of infection? No. Patient's initial sepsis screen is negative. Risk Assessment: Do you want to hurt yourself or someone else? Patient reports no desire to harm self or others. Onset of symptoms was June 22, 2024. 13:30 Method Of Arrival: Ambulatory cm10 13:30 Acuity: CHARMAINE 4 cm10 Triage Assessment: 13:34 General: Appears in no apparent distress. comfortable, Behavior is calm, cooperative. cm10 Pain: Complains of pain in Rib pain. EENT: Reports nasal congestion. Neuro: No deficits noted. Level of Consciousness is awake, alert, obeys commands, Oriented to person, place, time, situation, Appropriate for age. Respiratory: No deficits noted. Reports cough that is non-productive, Airway is patent Respiratory effort is even, unlabored, Respiratory pattern is regular, symmetrical. Historical: - Allergies: 13:31 NKA; cm10 - Home Meds: 13:31 amlodipine 10 mg tab 1 tab once daily [Active]; aspirin 81 mg Oral tablet 1 tab daily cm10 [Active]; atorvastatin 40 mg Oral tablet 1 tab daily [Active]; Sapna Aspirin 325 mg Oral tab 1 tab once daily [Active]; budesonide-formoterol 160-4.5 mcg/actuation inhalation HFA Aerosol Inhaler 2 inhalations 2 times per day [Active]; carvedilol 25 mg Oral tablet 1 tab 2 times per day [Active]; dexlansoprazole 60 mg Oral capsule 1 cap daily [Active]; Farxiga 10 mg Oral tablet 1 tab daily [Active]; ferrous sulfate 325 mg (65 mg iron) Oral tablet 1 tab daily [Active]; gabapentin 100 mg Oral capsule 1 cap 2 times per day [Active]; gemfibrozil 600 mg Oral tablet 1 tab 2 times per day [Active]; losartan-hydrochlorothiazide 100-12.5 mg Oral tablet [Active]; Mounjaro 5 mg/0.5 mL subcutaneous Pen Injector every week [Active]; PreserVision AREDS-2 250-90-40-1 mg Oral capsule [Active]; sertraline 50 mg Oral tablet 1 tab daily [Active]; Toujeo Max U-300 SoloStar 300 unit/mL (3 mL) subcutaneous Insulin Pen 45 units daily [Active]; - PMHx: 13:31 asbestosis; COPD; CVA; Diabetes - NIDDM; GI Bleed (Appendectomy); Hypertension; Sleep cm10 Apnea; - PSHx: 13:31 Appendectomy; back surgery; cm10 - Immunization history:: Adult Immunizations up to date. - Infectious Disease History:: Denies. - Social history:: Smoking status: Patient denies any tobacco usage or history of. Screenin:[address] [facility] ED Fall Risk Assessment (Adult) History of falling in the last 3 months, hb including since admission No falls in past 3 months (0 pts) Confusion or Disorientation No (0 pts) Intoxicated or Sedated No (0 pts) Impaired Gait No (0 pts) Mobility Assist Device Used No (0 pt) Altered Elimination No (0 pt) Score/Fall Risk Level 0 - 2 = Low Risk Oriented to surroundings, Maintained a safe environment, Educated pt \T\ family on fall prevention, incl call for assistance when getting out of bed. Abuse screen: Denies threats or abuse. Denies injuries from another. Nutritional screening: No deficits noted. Tuberculosis screening: No symptoms or risk factors identified. Assessment: 15:00 General: Appears in no apparent distress. Behavior is calm, cooperative. Pain: Denies hb pain. Neuro: GCS 15. Respiratory: Respiratory effort is even, unlabored, Respiratory pattern is regular, symmetrical. Vital Signs: 13:30 BP 126 / 68; Pulse 77; Resp 16; Temp 97.3(TE); Pulse Ox 96% on R/A; Weight 80.29 kg; cm10 Height 5 ft. 10 in. ; Pain /10; 13:30 Body Mass Index 25.40 (80.29 kg, 177.8 cm) cm10 13:30 Pain Scale: Adult cm10 ED Course: 13:03 Patient arrived in ED. ra3 13:31 Triage completed. cm10 13:32 Alexey Castellano MD is Attending Physician. bo1 13:33 Arm band placed on right wrist. Patient placed in waiting room. cm10 13:34 SARS RAPID Sent. cm10 13:34 Influenza Screen (a \T\ B) Sent. cm10 13:34 COVID swab sent to lab. Flu and/or RSV swab sent to lab. cm10 14:48 Chest Single View XRAY In Process Unspecified. EDMS 15:30 Patient has correct armband on for positive identification. Provided Education on: hb medications. 15:30 No provider procedures requiring assistance completed. Patient did not have IV access hb during this emergency room visit. Administered Medications: 15:15 Drug: DuoNeb Nebulize (3:1) (2.5 mg - 0.5 mg) 3 ml Nebulizer once Route: Nebulizer; hb 16:18 Follow up: Response: No adverse reaction hb Medication: 16:18 VIS not applicable for this client. hb Outcome: 16:02 Discharge ordered by . bo1 16:18 Discharged to home ambulatory, with significant other, hb 16:18 Condition: stable 16:18 Discharge instructions given to patient, significant other, Instructed on discharge instructions, follow up and referral plans. medication usage, Demonstrated understanding of instructions, follow-up care, medications, Prescriptions given X 3, 16:19 Patient left the ED. hb Signatures: Dispatcher [employer] EDMS Janae Valenzuela RN RN Katie Morgan RN RN cm10 Mel Morgan ra3 Alexey Castellano MD MD bo1 Corrections: (The following items were deleted from the chart) 13:33 13:31 Home Meds: glimepiride 4 mg Oral tab 1 tab twice a day; cm10 cm10
[2024-06-22 17:11] VITALS: BP 126/68; TEMP 97.3; O2SAT 96
== END 2024-06-22 16:19 | disposition home or self-care (01) ==
LOC: ER 13:00
DX: J44.1 Chronic obstructive pulmonary disease with (acute) exacerbation (principal); J44.0 Chronic obstructive pulmonary disease with (acute) lower respiratory infection; I10 Essential (primary) hypertension; E11.9 Type 2 diabetes mellitus without complications; Z79.4 Long term (current) use of insulin; Z11.52 Encounter for screening for COVID-19
CPT/HCPCS: 36415; 87804 ×2; 71045; 87811; J7613; J7644

== ENCOUNTER 2025-04-17 16:47 | Emergency (ER) | payer OTHER ==
--- NOTE | 2025-04-17 17:52 | EDPHYS ---
Physician Documentation [facility] Name: Solomon Murdock Age: 74 yrs Sex: Male : 1950 Arrival Date: 04/17/2025 Time: 16:47 Bed IW1 Private MD: ED Physician Stephanie Terry HPI: 04/17 17:40 This 74 yrs old Male presents to ER via Ambulatory with complaints of Wound Check - cp left leg, hasnt slept in 3 days. 17:40 The patient presents with an injury. The complaints affect the medial aspect of left cp lower calf. Context: resulted from an unknown cause. Onset: The symptoms/episode began/occurred 4 day(s) ago. 17:40 Treatment prior to arrival includes: no previous treatment. Patient reports he was cp outside sitting on bench [place] this past Monday when he looked down at left lower leg and noticed it was bleeding. Unsure of any specific injury but reports open wound with skin flap and another more superficial wound. C/o increasing pain and redness over past 2 days. Historical: - Allergies: 17:35 NKA; dd2 - PMHx: 17:35 asbestosis; COPD; CVA; Diabetes - NIDDM; GI Bleed (Appendectomy); Hypertension; Sleep dd2 Apnea; - PSHx: 17:35 Appendectomy; back surgery; dd2 - Immunization history:: Adult Immunizations up to date. - Infectious Disease History:: Denies. - Social history:: Smoking status: Patient denies any tobacco usage or history of. ROS: 17:43 Constitutional: Negative for body aches, chills, fever, poor PO intake, cp 17:43 MS/extremity: Positive for erythema, laceration, pain, tenderness, of the medial aspect of left calf, 17:43 Eyes: Negative for injury, pain, redness, and discharge, cp 17:43 Cardiovascular: Negative for chest pain, palpitations, 17:43 Respiratory: Negative for cough, shortness of breath, wheezing, 17:43 Abdomen/GI: Negative for abdominal pain, vomiting, diarrhea, constipation, 17:43 Neuro: Negative for altered mental status, headache, weakness, 17:43 All other systems are negative, Exam: 17:45 Constitutional: The patient appears in no acute distress, alert, awake, non-toxic, well cp developed, well nourished, 17:45 Head/Face: Normocephalic, atraumatic. cp 17:45 Eyes: Periorbital structures: appear normal, Conjunctiva: normal, no exudate, no injection, Lids and lashes: appear normal, bilaterally, 17:45 ENT: External ear(s): are unremarkable, Nose: is normal, Mouth: Lips: moist, Posterior pharynx: Airway: no evidence of obstruction, patent, 17:45 Chest/axilla: Inspection: normal, 17:45 Cardiovascular: Rate: normal, 17:45 Respiratory: the patient does not display signs of respiratory distress, Respirations: normal, no use of accessory muscles, no retractions, 17:45 Musculoskeletal/extremity: Extremities: noted in the medial aspect of left calf: Lacerations x 2 noted with partial skin avulsion, mild surrounding erythema, more tender to palpation. No advancing erythema no drainage expressed from these lacerations, Vital Signs: 17:32 BP 148 / 66; Pulse 74; Resp 16; Temp 97.1; Pulse Ox 98% on R/A; Pain 8/10; dd2 18:11 BP 142 / 71; Pulse 76; Resp 16; Pulse Ox 98% ; dd2 17:32 Pain Scale: Adult dd2 [place] Coma Score: 18:09 Eye Response: spontaneous(4). Motor Response: obeys commands(6). Verbal Response: dd2 oriented(5). Total: 15. MDM: 17:30 Medical Screening Exam initiated cp 17:40 Differential diagnosis: cellulitis, abscess, simple laceration, skin tear. cp 17:46 Data reviewed: vital signs, nurses notes, and as a result, I will discharge patient. cp 17:47 Counseling: I had a detailed discussion with the patient and/or guardian regarding the cp historical points, exam findings, and any diagnostic results supporting the discharge/admit diagnosis, to return to the emergency department if symptoms worsen or persist or if there are any questions or concerns that arise at home. 17:47 Response to treatment: the patient's symptoms have mildly improved after treatment. ED cp course: Vital signs stable patient appears nontoxic. Will start patient on oral antibiotic with a prescription for antibiotic cream to apply to wound. Discussed daily wound care and continued monitoring and to return to the emergency department fevers, worsening pain, worsening redness. Administered Medications: 18:07 Drug: Doxycycline PO 100 mg PO once Route: PO; dd2 18:09 Follow up: Response: Medication administered at discharge. dd2 18:07 Drug: Ibuprofen PO 800 mg PO once Route: PO; dd2 18:09 Follow up: Response: Medication administered at discharge. dd2 18:07 Drug: HYDROcodone-acetaminophen PO 5 mg-325 mg 1 tabs PO once Route: PO; dd2 18:08 Follow up: Response: Medication administered at discharge. dd2 Disposition Summary: 04/17/25 17:47 Discharge Ordered Notes: Location: Home cp Problem: new cp Symptoms: have improved cp Condition: Stable cp Diagnosis - Leg Laceration/ Open wound of lower leg - left cp - Local infection of the skin and subcutaneous tissue, unspecified - left lower leg cp Followup: cp - With: Private Physician - When: 1 - 2 days - Reason: Worsening of condition Discharge Instructions: - Discharge Summary Sheet cp - Cellulitis, Adult cp - Nonsutured Laceration Care cp Forms: - Medication Reconciliation Form cp - Antibiotic Education cp - Prescription Opioid Use cp - Patient Portal Instructions cp - Leadership Thank You Letter cp Prescriptions: - mupirocin 2 % Topical ointment - apply 1 application TOPICAL route 2-3 times daily; 30 gram tube; Refills: 0, cp Product Selection Permitted - Doxycycline Hyclate 100 mg Oral Tablet - take 1 tablet ORAL route every 12 hours; 20 tablet; Refills: 0, Product cp Selection Permitted - Tramadol 50 mg Oral tablet - take 1 tablet ORAL route every 8 hours as needed for pain; 10 tablet; Refills: cp 0, Product Selection Permitted Signatures: Loyd Alford PA-C PA-C cp DAVIS, DIANA RN RN dd2 Corrections: (The following items were deleted from the chart) 04/18 16:31 16:29 MS/extremity: Positive for erythema, laceration, pain, tenderness, of the medial cp aspect of left calf, cp 16:31 16:29 Constitutional: Negative for body aches, chills, fever, poor PO intake, cp cp
--- NOTE | 2025-04-17 17:52 | ER ---
Nurse's Notes [facility] Name: Solomon Murdock Age: 74 yrs Sex: Male : 1950 Arrival Date: 04/17/2025 Time: 16:47 Bed IW1 Private MD: Diagnosis: Leg Laceration/ Open wound of lower leg-left;Local infection of the skin and subcutaneous tissue, unspecified-left lower leg Presentation: 04/17 17:32 Chief complaint: Patient states: HE [place] AND SAW LT LEG dd2 BLEEDING, DOES NOT REMEMBER HITTING IT. REPORTS PAIN, WORSE AT NIGHT, SWELLING. Coronavirus screen: At this time, the client does not indicate any symptoms associated with coronavirus-19. Ebola Screen: No symptoms or risks identified at this time. Initial Sepsis Screen: Does the patient meet any 2 criteria? No. Patient's initial sepsis screen is negative. Does the patient have a suspected source of infection? No. Patient's initial sepsis screen is negative. Risk Assessment: Do you want to hurt yourself or someone else? Patient reports no desire to harm self or others. Onset of symptoms was April 13, 2025. 17:32 Method Of Arrival: Ambulatory dd2 17:32 Acuity: CHARMAINE 3 dd2 Triage Assessment: 17:35 General: Appears in no apparent distress. uncomfortable, Behavior is calm, cooperative, dd2 appropriate for age. Pain: Complains of pain in medial aspect of left calf. Derm: Wound noted medial aspect of left calf Wound is SCAB WITH REDNESS Bruising that is dark purple, Reports pain. Historical: - Allergies: 17:35 NKA; dd2 - PMHx: 17:35 asbestosis; COPD; CVA; Diabetes - NIDDM; GI Bleed (Appendectomy); Hypertension; Sleep dd2 Apnea; - PSHx: 17:35 Appendectomy; back surgery; dd2 - Immunization history:: Adult Immunizations up to date. - Infectious Disease History:: Denies. - Social history:: Smoking status: Patient denies any tobacco usage or history of. Screenin:09 [facility] ED Fall Risk Assessment (Adult) History of falling in the last 3 months, dd2 including since admission Yes- single mechanical fall (1 pt) Confusion or Disorientation No (0 pts) Intoxicated or Sedated No (0 pts) Impaired Gait No (0 pts) Mobility Assist Device Used No (0 pt) Altered Elimination No (0 pt) Score/Fall Risk Level 0 - 2 = Low Risk Oriented to surroundings, Maintained a safe environment, Educated pt \T\ family on fall prevention, incl call for assistance when getting out of bed, Assessed \T\ reinforced patient's understanding of fall precautions, Hourly rounding (assess needs \T\ fall precautionary measures) done. Abuse screen: Denies threats or abuse. Denies injuries from another. Nutritional screening: No deficits noted. Tuberculosis screening: No symptoms or risk factors identified. Assessment: 18:09 Reassessment: No changes from previously documented assessment. Patient is alert, dd2 oriented x 3, equal unlabored respirations, skin warm/dry/pink. Vital Signs: 17:32 BP 148 / 66; Pulse 74; Resp 16; Temp 97.1; Pulse Ox 98% on R/A; Pain 8/10; dd2 18:11 BP 142 / 71; Pulse 76; Resp 16; Pulse Ox 98% ; dd2 17:32 Pain Scale: Adult dd2 [place] Coma Score: 18:09 Eye Response: spontaneous(4). Motor Response: obeys commands(6). Verbal Response: dd2 oriented(5). Total: 15. ED Course: 16:49 Patient arrived in ED. im 16:51 Loyd Alford PA-C is PHCP. cp 16:51 Stephanie Terry MD is Attending Physician. cp 17:35 Triage completed. dd2 17:35 Arm band placed on left wrist. dd2 18:09 Patient has correct armband on for positive identification. Provided Education on: D/C dd2 EDUCATION. 18:09 No provider procedures requiring assistance completed. Patient did not have IV access dd2 during this emergency room visit. Administered Medications: 18:07 Drug: Doxycycline PO 100 mg PO once Route: PO; dd2 18:09 Follow up: Response: Medication administered at discharge. dd2 18:07 Drug: Ibuprofen PO 800 mg PO once Route: PO; dd2 18:09 Follow up: Response: Medication administered at discharge. dd2 18:07 Drug: HYDROcodone-acetaminophen PO 5 mg-325 mg 1 tabs PO once Route: PO; dd2 18:08 Follow up: Response: Medication administered at discharge. dd2 Medication: 18:09 VIS not applicable for this client. dd2 Outcome: 17:47 Discharge ordered by . charles 18:11 Discharged to home ambulatory, dd2 18:11 Condition: stable 18:11 Discharge instructions given to patient, significant other, Instructed on discharge instructions, follow up and referral plans. medication usage, Demonstrated understanding of instructions, follow-up care, medications, Prescriptions given X 3, 18:12 Patient left the ED. dd2 Signatures: Loyd Alford, YANNI PAYue Boyle cp, DIANA, RN RN dd2
[2025-04-17] MEDS ORDERED: HYDROCODONE/APAP 5/325 MG TAB ONE (18:05)
[2025-04-17] MEDS ORDERED: IBUPROFEN 400 MG TAB ONE (18:05)
[2025-04-17] MEDS ORDERED: DOXYCYCLINE 100 MG CAP PO ONE (18:05)
[2025-04-17 18:26] VITALS: TEMP 97.1; O2SAT 98
[2025-04-17 18:28] VITALS: BP 142/71
== END 2025-04-17 18:12 | disposition home or self-care (01) ==
LOC: ER 16:47
DX: L08.9 Local infection of the skin and subcutaneous tissue, unspecified (principal)
CPT/HCPCS: 99283